=== PATIENT | female | born 1985 | race Hispanic/Latino ===

== ENCOUNTER 2018-08-20 22:20 | Emergency (ER) | payer SELFPAY ==
[2018-08-21] MEDS ORDERED: IPRATROPIUM BROM 0.5MG/2.5ML ONE (00:20)
[2018-08-21] MEDS ORDERED: ALBUTEROL 2.5 MG/3 ML NEB SOL ONE (00:20)
--- NOTE | 2018-08-21 01:25 | EDPHYS ---
Physician Documentation [facility] Name: Jayne Rivera Age: 33 yrs Sex: Female : 1985 Arrival Date: 08/20/2018 Time: 22:24 Bed 26 Private MD: ED Physician Choco Piedra HPI: 08/21 01:27 This 33 yrs old Female presents to ER via Ambulatory with complaints of tw4 Breathing Difficulty, Sore Throat, Chest Pain, Asthma Exacerbation. 01:27 The patient has shortness of breath at rest. Onset: The symptoms/episode began/occurred tw4 today. Duration: The symptoms are continuous, and are steadily getting worse. The patient's shortness of breath has no apparent modifying factors. Associated signs and symptoms: The patient has no apparent associated signs or symptoms. Severity of symptoms: At their worst the symptoms were moderate. The patient has not experienced similar symptoms in the past. 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 - Social history:: Smoking status: Patient/guardian denies using tobacco. - Ebola Screening: : Patient negative for fever greater than or equal to 101.5 degrees Fahrenheit, and additional compatible Ebola Virus Disease symptoms Patient denies exposure to infectious person Patient denies travel to an Ebola-affected area in the 21 days before illness onset. ROS: 08/21 01:27 Constitutional: Negative for fever, chills, and weight loss, Eyes: Negative for injury, tw4 pain, redness, and discharge. Cardiovascular: Negative for chest pain, palpitations, and edema. Abdomen/GI: Negative for abdominal pain, nausea, vomiting, diarrhea, and constipation, Back: Negative for injury and pain, MS/Extremity: Negative for injury and deformity, Skin: Negative for injury, rash, and discoloration, Neuro: Negative for headache, weakness, numbness, tingling, and seizure. ENT: Positive for sore throat. Respiratory: Positive for shortness of breath. Exam: 01:27 Constitutional: This is a well developed, well nourished patient who is awake, alert, tw4 and in no acute distress. Head/Face: Normocephalic, atraumatic. Chest/axilla: Normal chest wall appearance and motion. Nontender with no deformity. No lesions are appreciated. Cardiovascular: Regular rate and rhythm with a normal S1 and S2. No gallops, murmurs, or rubs. Normal PMI, no JVD. No pulse deficits. Respiratory: Lungs have equal breath sounds bilaterally, clear to auscultation and percussion. No rales, rhonchi or wheezes noted. No increased work of breathing, no retractions or nasal flaring. Abdomen/GI: Soft, non-tender, with normal bowel sounds. No distension or tympany. No guarding or rebound. No evidence of tenderness throughout. Back: No spinal tenderness. No costovertebral tenderness. Full range of motion. MS/ Extremity: Pulses equal, no cyanosis. Neurovascular intact. Full, normal range of motion. Neuro: Awake and alert, GCS 15, oriented to person, place, time, and situation. Cranial nerves II-XII grossly intact. Motor strength 5/5 in all extremities. Sensory grossly intact. Cerebellar exam normal. Normal gait. Vital Signs: 08/20 22:41 BP 104 / 60; Pulse 90; Resp 19; Temp 99.2(O); Pulse Ox 96% ; lt1 23:30 BP 116 / 57 LA; Pulse 96; Resp 14 S; Pulse Ox 96% on R/A; rv 08/21 00:00 BP 104 / 75 LA; Pulse 92; Resp 21 S; Pulse Ox 96% on R/A; rv 00:30 BP 111 / 77 LA; Pulse 92; Resp 16 S; Pulse Ox 99% on Nebulizer Mask; rv 01:00 BP 118 / 68 LA; Pulse 108; Resp 25 S; Pulse Ox 98% on R/A; rv MDM: 08/20 22:30 Patient medically screened. tw4 08/21 01:34 Differential diagnosis: Anemia Anxiety Reaction reactive airway disease, Sepsis. tw4 Antibiotic administration: Not indicated. Data reviewed: vital signs, nurses notes. Data interpreted: Pulse oximetry: Interpretation:. Counseling: I had a detailed discussion with the patient and/or guardian regarding: the historical points, exam findings, and any diagnostic results supporting the discharge/admit diagnosis. Special discussion: I discussed with the patient/guardian in detail that at this point there is no indication for admission to the hospital. It is understood, however, that if the symptoms persist or worsen the patient needs to return immediately for re-evaluation. 08/21 00:05 Order name: Flu; Complete Time: 00:59 tw4 08/20 23:04 Order name: Chest Single View XRAY tw4 Administered Medications: 00:16 Drug: DuoNeb (3:1) (2.5 mg - 0.5 mg) 3 ml Route: Nebulizer; rv 00:46 Follow up: Response: Wheezing diminished rv Disposition: 08/21/18 01:25 Discharged to Home. Impression: Bronchitis, not specified as acute or chronic. - Condition is Stable. - Discharge Instructions: Acute Bronchitis, Adult, Upper Respiratory Infection, Adult. - Prescriptions for Tessalon Perles 100 mg Oral Capsule - take 1 capsule by ORAL route every 8 hours As needed; 15 capsule. Albuterol Sulfate 90 mcg/actuation - inhale 1-2 puff by INHALATION route every 4-6 hours; 1 Inhaler. Guaifenesin AC 10- 100 mg/5 mL Oral Liquid - take 10 milliliter by ORAL route every 4 hours As needed; 240 milliliter. - Medication Reconciliation Form, Thank You Letter, Antibiotic Education, Prescription Opioid Use form. - Follow up: Private Physician; When: Upon discharge from the Emergency Department; Reason: If symptoms return, Recheck today's complaints, Continuance of care. - Problem is new. - Symptoms have improved. Signatures: Dispatcher [employer] [facility] Choco Piedra MD MD tw4 Dwayne Cortés RN RN rv Corrections: (The following items were deleted from the chart) 01:35 01:25 08/21/2018 01:25 Discharged to Home. Impression: Bronchitis, not specified as rv acute or chronic. Condition is Stable. Forms are Medication Reconciliation Form, Thank You Letter, Antibiotic Education, Prescription Opioid Use. Follow up: Private Physician; When: Upon discharge from the Emergency Department; Reason: If symptoms return, Recheck today's complaints, Continuance of care. Problem is new. Symptoms have improved. tw4
--- NOTE | 2018-08-21 01:25 | ER ---
Nurse's Notes [facility] Name: Jayne Rivera Age: 33 yrs Sex: Female : 1985 Arrival Date: 08/20/2018 Time: 22:24 Bed 26 Private MD: Diagnosis: Bronchitis, not specified as acute or chronic Presentation: 08/20 22:48 Presenting complaint: Patient states: I FELT IN THE MORNING LIKE I AM COLD AND THEN AT rv THE AFTERNOON I JUST FELT CHEST PAIN AND BREATHING PROBLEMS. I FEEL A LITTLE BIT DIZZY AND SOME HEADACHE TOO. Transition of care: patient was not received from another setting of care. Onset of symptoms was August 20, 2018 at 08:00. Risk Assessment: Do you want to hurt yourself or someone else? Patient reports no desire to harm self or others. Initial Sepsis Screen: Does the patient meet any 2 criteria? No. Patient's initial sepsis screen is negative. Does the patient have a suspected source of infection? No. Patient's initial sepsis screen is negative. Care prior to arrival: None. 22:48 Method Of Arrival: Ambulatory rv 22:48 Acuity: VIJAY 3 rv Triage Assessment: 22:50 General: Appears in no apparent distress. uncomfortable, Behavior is calm, cooperative. rv Pain: Complains of pain in chest. EENT: No signs and/or symptoms were reported regarding the EENT system. Neuro: Level of Consciousness is awake, alert, obeys commands, Oriented to person, place, time, situation. Cardiovascular: Capillary refill < 3 seconds. Respiratory: Reports shortness of breath Onset: The symptoms/episode began/occurred this morning, the patient has mild shortness of breath. GI: No signs and/or symptoms were reported involving the gastrointestinal system. : No signs and/or symptoms were reported regarding the genitourinary system. Derm: Skin is intact. Musculoskeletal: No signs and/or symptoms reported regarding the musculoskeletal system. 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 - Social history:: Smoking status: Patient/guardian denies using tobacco. - Ebola Screening: : Patient negative for fever greater than or equal to 101.5 degrees Fahrenheit, and additional compatible Ebola Virus Disease symptoms Patient denies exposure to infectious person Patient denies travel to an Ebola-affected area in the 21 days before illness onset. Screenin:52 Abuse screen: Denies threats or abuse. Denies injuries from another. Nutritional rv screening: No deficits noted. Tuberculosis screening: No symptoms or risk factors identified. Fall Risk None identified. Assessment: 22:53 Cardiovascular: Rhythm is regular. Respiratory: Airway is patent Respiratory effort is rv even, Breath sounds are clear bilaterally. 08/21 00:20 Reassessment: Patient appears in no apparent distress at this time. Patient and/or rv family updated on plan of care and expected duration. Pain level reassessed. Patient is alert, oriented x 3, equal unlabored respirations, skin warm/dry/pink. Vital Signs: 08/20 22:41 BP 104 / 60; Pulse 90; Resp 19; Temp 99.2(O); Pulse Ox 96% ; lt1 23:30 BP 116 / 57 LA; Pulse 96; Resp 14 S; Pulse Ox 96% on R/A; rv 04 00:00 BP 104 / 75 LA; Pulse 92; Resp 21 S; Pulse Ox 96% on R/A; rv 00:30 BP 111 / 77 LA; Pulse 92; Resp 16 S; Pulse Ox 99% on Nebulizer Mask; rv 01:00 BP 118 / 68 LA; Pulse 108; Resp 25 S; Pulse Ox 98% on R/A; rv ED Course: 08/20 22:24 Patient arrived in ED. es 22:30 Choco Piedra MD is Attending Physician. tw4 22:49 Triage completed. rv 22:54 Patient has correct armband on for positive identification. Placed in gown. Bed in low rv position. Call light in reach. Side rails up X 1. monitor and storage bin tender on. Pulse ox on. NIBP on. 22:54 Patient placed in an exam room, on a stretcher, on monitor and storage bin tender, on pulse oximetry, rv Patient notified of wait time. 23:29 X-ray completed. Portable x-ray completed in exam room. Patient tolerated procedure az well. 23:38 Chest Single View XRAY In Process Unspecified. EDMS 08/21 00:16 Flu Sent. rv 01:34 No provider procedures requiring assistance completed. Patient did not have IV access rv during this emergency room visit. Administered Medications: 00:16 Drug: DuoNeb (3:1) (2.5 mg - 0.5 mg) 3 ml Route: Nebulizer; rv 00:46 Follow up: Response: Wheezing diminished rv Outcome: 01:25 Discharge ordered by MD. mills 01:35 Discharged to home ambulatory. rv 01:35 Condition: good 01:35 Discharge instructions given to patient, Instructed on discharge instructions, follow up and referral plans. medication usage, Demonstrated understanding of instructions, follow-up care, medications, Prescriptions given X 3. 01:35 Patient left the ED. rv Signatures: Dispatcher [employer] [facility] Tracey Johnson Terrence, MD MD tw4 Dwayne Cortés RN RN rv Tae, Malena Ozuna lt1
--- NOTE | 2018-08-21 08:19 | RAD REPORT ---
EXAM DESCRIPTION: RAD - Chest Single View - 08/20/2018 11:37 pm CLINICAL HISTORY: DYSPNEA Chest pain. COMPARISON: No comparisons FINDINGS: Portable technique limits examination quality. The lungs are grossly clear. The heart is normal in size. No displaced fractures. IMPRESSION: No acute intrathoracic process suspected.
== END 2018-08-21 01:35 | disposition home or self-care (01) ==
LOC: ER 22:20
DX: J40 Bronchitis, not specified as acute or chronic (principal); J45.909 Unspecified asthma, uncomplicated; E11.9 Type 2 diabetes mellitus without complications; Z88.0 Allergy status to penicillin
CPT/HCPCS: 71045; 87804; 93005; 94640; 99285

== ENCOUNTER 2019-11-13 07:33 | Emergency (ER) | payer SELFPAY ==
[2019-11-13 08:52] LABS: Urine Blood NEGATIVE (NEG); Urine Glucose 3+ (NEG); Urine Protein NEGATIVE (NEG); Urine Specific Gravity 1.025 (1.005-1.030)
[2019-11-13] MEDS ORDERED: MORPHINE 4 MG/ML SYR ONE (08:53)
--- NOTE | 2019-11-13 09:12 | RAD REPORT ---
EXAM DESCRIPTION: CT - Spine Lumbar Wo Con - 11/13/2019 8:59 am CLINICAL HISTORY: Radiculopathy. LOWER BACK PAIN COMPARISON: No comparisons TECHNIQUE: Axial noncontrast CT imaging of the lumbar spine was performed with coronal and sagittal re-formatted images. All CT scans are performed using dose optimization technique as appropriate and may include automated exposure control or mA/KV adjustment according to patient size. FINDINGS: No acute lumbar spine fracture seen. No aggressive marrow pattern or malalignment. Paraspinal tissues are normal in thickness. No paraspinal abscess or hematoma seen. Evidence of posterior disc bulge is present lower lumbar spine. Severe canal stenosis is not seen. Fa cet hypertrophy is also present bilaterally in the lower lumbar levels. IMPRESSION: No acute lumbar spine abnormality. Moderate lower lumbar spondylosis is present.
--- NOTE | 2019-11-13 09:58 | ER ---
Nurse's Notes [facility] Name: Jayne Rivera Age: 34 yrs Sex: Female : 1985 Arrival Date: 11/13/2019 Time: 07:36 Bed 8 Private MD: Diagnosis: Low back pain Presentation: 11/12 07:58 Chief complaint: Patient states: low back pain that began this morning while getting ss dressed. Coronavirus screen: Proceed with normal triage. Patient denies a cough. Patient denies shortness of breath or difficulty breathing. Patient denies measured and/or subjective temperature greater than 100.4F prior to today's visit. Patient denies travel on a cruise ship or to a country the [facility] currently lists as an affected area. Patient denies contact with known and/or suspected case of COVID-19. Ebola Screen: Patient denies exposure to infectious person. Patient denies travel to an Ebola-affected area in the 21 days before illness onset. Initial Sepsis Screen: Does the patient meet any 2 criteria? Does the patient have a suspected source of infection? No. Patient's initial sepsis screen is negative. Risk Assessment: Do you want to hurt yourself or someone else? Patient reports no desire to harm self or others. Onset of symptoms was November 13, 2019. 07:58 Method Of Arrival: Wheelchair ss 07:58 Acuity: VIJAY 3 ss Historical: - Allergies: 08:02 PENICILLINS; ss - PMHx: 08:02 Asthma; Diabetes - NIDDM; ss - PSHx: 08:02 Tonsillectomy; ss - Immunization history:: Adult Immunizations up to date. - Social history:: Smoking status: Patient denies any tobacco usage or history of. Screenin:02 Abuse screen: Denies threats or abuse. Denies injuries from another. Nutritional sv screening: No deficits noted. Tuberculosis screening: No symptoms or risk factors identified. Fall Risk None identified. Assessment: 08:45 Reassessment: Pt stated that she couldn't ambulate to the bathroom to obtain a urine sv sample. Informed pt that we needed to get a urine . Pt informed that we could do a straight cath, pt stated ok. Got everything ready and got pt undressed and pt stated that she didn't want to do it anymore and started crying. Pt stated that she would get up and urinate in a cup for a sample. General: Appears in no apparent distress. uncomfortable, well developed, Behavior is cooperative, crying. Pain: Complains of pain in lumbar area Pain currently is 10 out of 10 on a pain scale. Is continuous. Neuro: Level of Consciousness is awake, alert, obeys commands, Oriented to person, place, time, situation, Moves all extremities. Full function. Respiratory: Respiratory effort is even, unlabored, Respiratory pattern is regular, symmetrical. Derm: Skin is intact, Skin is pink, warm \T\ dry. 09:35 Reassessment: Dr Benton at bedside speaking with pt. sv 09:44 Reassessment: Pt ambulatory in the hallway leaning on her family member. Dr Benton sv observed the pt ambulating. 10:12 Reassessment: Patient appears in no apparent distress at this time. No changes from sv previously documented assessment. Patient and/or family updated on plan of care and expected duration. Pain level reassessed. Patient is alert, oriented x 3, equal unlabored respirations, skin warm/dry/pink. Vital Signs: 07:58 BP 129 / 70; Pulse 54; Resp 18; Temp 98.1(TE); Pulse Ox 98% on R/A; Weight 113.4 kg; Height 5 ft. 7 in. (170.18 cm); Pain 10/10; 09:15 BP 107 / 43; Pulse 52; Resp 16; Pulse Ox 96% ; sv 07:58 Body Mass Index 39.16 (113.40 kg, 170.18 cm) ED Course: 07:36 Patient arrived in ED. mr 07:52 Wilder Benton MD is Attending Physician. [facility] 08:01 Triage completed. ss 08:02 Aarti Clements, STEPHEN is Primary Nurse. sv 08:02 Arm band placed on right wrist. ss 08:02 Patient has correct armband on for positive identification. Bed in low position. Call sv light in reach. Adult w/ patient. Pulse ox on. NIBP on. Door closed. Head of bed elevated. 08:05 ED physician to see patient. sv 08:59 CT Lumbar Spine Wo Con In Process Unspecified. EDMS 09:44 No provider procedures requiring assistance completed. Patient did not have IV access sv during this emergency room visit. Administered Medications: 08:50 Drug: morphine 4 mg {Note: rass3.} Route: IM; Site: right deltoid; sv 09:45 Follow up: Response: No adverse reaction; No change in condition; Pain is unchanged, physician notified; RASS: Agitated (+2) Outcome: 09:57 Discharge ordered by MD. hilario 10:12 Discharged to home via wheelchair, with crutches, with family. sv 10:12 Condition: stable 10:12 Discharge instructions given to patient, Instructed on discharge instructions, follow up and referral plans. no drinking with medication, no driving heavy equipment, medication usage, Demonstrated understanding of instructions, follow-up care, medications, Prescriptions given X 3. 10:13 Patient left the ED. Signatures: Dispatcher [employer] EDAarti Roberts RN RN sv Rivera, Mary mr Smirch, Shelby, RN RN ss Holmes, Maurice, MD MD 7 Corrections: (The following items were deleted from the chart) 08:05 08:03 Awaiting ED provider evaluation, [facility]
--- NOTE | 2019-11-13 09:58 | EDPHYS ---
Physician Documentation [facility] Name: Jayne Rivera Age: 34 yrs Sex: Female : 1985 Arrival Date: 11/13/2019 Time: 07:36 Bed 8 Private MD: ED Physician Wilder Benton HPI: 11/12 08:07 This 34 yrs old Female presents to ER via Wheelchair with complaints of Back mh7 Pain. 08:07 The patient presents with pain that is acute. The symptoms are located in the low back. mh7 Onset: The symptoms/episode began/occurred this morning. The pain does not radiate. Associated signs and symptoms: Pertinent negatives: abdominal pain, chest pain, constipation, dysuria, fever, headache, hematuria, incontinence, nausea, numbness, tingling, urinary retention, vomiting, weakness. The problem was sustained when bending over, from twisting. Modifying factors: The patient symptoms are alleviated by remaining still, the patient symptoms are aggravated by movement, standing, walking. Severity of symptoms: At their worst the symptoms were moderate, this morning, in the emergency department the symptoms are unchanged. The patient has experienced similar episodes in the past, a few times. Historical: - Allergies: 08:02 PENICILLINS; ss - PMHx: 08:02 Asthma; Diabetes - NIDDM; ss - PSHx: 08:02 Tonsillectomy; ss - Immunization history:: Adult Immunizations up to date. - Social history:: Smoking status: Patient denies any tobacco usage or history of. ROS: 08:07 Constitutional: Negative for fever, chills, and weight loss, Eyes: Negative for injury, mh7 pain, redness, and discharge, ENT: Negative for injury, pain, and discharge, Neck: Negative for injury, pain, and swelling, Cardiovascular: Negative for chest pain, palpitations, and edema, Respiratory: Negative for shortness of breath, cough, wheezing, and pleuritic chest pain, Abdomen/GI: Negative for abdominal pain, nausea, vomiting, diarrhea, and constipation, : Negative for injury, bleeding, discharge, and swelling, MS/Extremity: Negative for injury and deformity, Skin: Negative for injury, rash, and discoloration, Neuro: Negative for headache, weakness, numbness, tingling, and seizure, Psych: Negative for depression, anxiety, suicide ideation, homicidal ideation, and hallucinations, Allergy/Immunology: Negative for hives, rash, and allergies, Endocrine: Negative for neck swelling, polydipsia, polyuria, polyphagia, and marked weight changes, Hematologic/Lymphatic: Negative for swollen nodes, abnormal bleeding, and unusual bruising. Exam: 08:07 Constitutional: This is a well developed, well nourished patient who is awake, alert, mh7 and in no acute distress. Head/Face: Normocephalic, atraumatic. Eyes: Pupils equal round and reactive to light, extra-ocular motions intact. Lids and lashes normal. Conjunctiva and sclera are non-icteric and not injected. Cornea within normal limits. Periorbital areas with no swelling, redness, or edema. Neck: Trachea midline, no thyromegaly or masses palpated, and no cervical lymphadenopathy. Supple, full range of motion without nuchal rigidity, or vertebral point tenderness. No Meningismus. Chest/axilla: Normal chest wall appearance and motion. Nontender with no deformity. No lesions are appreciated. Cardiovascular: Regular rate and rhythm with a normal S1 and S2. No gallops, murmurs, or rubs. Normal PMI, no JVD. No pulse deficits. Respiratory: Lungs have equal breath sounds bilaterally, clear to auscultation and percussion. No rales, rhonchi or wheezes noted. No increased work of breathing, no retractions or nasal flaring. Abdomen/GI: Soft, non-tender, with normal bowel sounds. No distension or tympany. No guarding or rebound. No evidence of tenderness throughout. 08:07 Skin: Warm, dry with normal turgor. Normal color with no rashes, no lesions, and no evidence of cellulitis. MS/ Extremity: Pulses equal, no cyanosis. Neurovascular intact. Full, normal range of motion. Neuro: Awake and alert, GCS 15, oriented to person, place, time, and situation. Cranial nerves II-XII grossly intact. Motor strength 5/5 in all extremities. Sensory grossly intact. Cerebellar exam normal. Normal gait. Psych: Awake, alert, with orientation to person, place and time. Behavior, mood, and affect are within normal limits. 08:07 Back: pain, that is moderate, of the lumbar area, ROM is painful, with all movement, normal spinal alignment noted, CVA tenderness, is absent, muscle spasm, is appreciated in the lumbar area, Straight leg raises: of both lower extremities does not illicit pain. Vital Signs: 07:58 BP 129 / 70; Pulse 54; Resp 18; Temp 98.1(TE); Pulse Ox 98% on R/A; Weight 113.4 kg; ss Height 5 ft. 7 in. (170.18 cm); Pain 10/10; 09:15 BP 107 / 43; Pulse 52; Resp 16; Pulse Ox 96% ; sv 07:58 Body Mass Index 39.16 (113.40 kg, 170.18 cm) ss MDM: 08:05 Patient medically screened. 7 09:55 Differential diagnosis: arthritis, chronic back pain, Fracture Ligament Injury Obesity 7 ruptured disc, sprain, vertebral fracture. Data reviewed: vital signs, nurses notes, lab test result(s), urinalysis, radiologic studies, CT scan. Data interpreted: Pulse oximetry: on room air is 96 %. Interpretation: normal. Counseling: I had a detailed discussion with the patient and/or guardian regarding: the historical points, exam findings, and any diagnostic results supporting the discharge/admit diagnosis, lab results, radiology results, the need for outpatient follow up, to return to the emergency department if symptoms worsen or persist or if there are any questions or concerns that arise at home. Response to treatment: the patient's symptoms have markedly improved after treatment. 11/12 08:38 Order name: Urine Dipstick--Ancillary (enter results); Complete Time: 09:02 11/12 08:38 Order name: Urine --Ancillary (enter results); Complete Time: 09:02 11/12 08:06 Order name: Urine Dipstick-Ancillary (obtain specimen); Complete Time: 08:50 [facility] 11/12 08:06 Order name: Urine Test (obtain specimen); Complete Time: 08:50 [facility] 11/12 08:06 Order name: CT Lumbar Spine Wo Con; Complete Time: 09:31 7 Administered Medications: 08:50 Drug: morphine 4 mg {Note: rass3.} Route: IM; Site: right deltoid; sv 09:45 Follow up: Response: No adverse reaction; No change in condition; Pain is unchanged, sv physician notified; RASS: Agitated (+2) Disposition: 11/13/19 09:57 Discharged to Home. Impression: Low back pain. - Condition is Stable. - Discharge Instructions: Back Injury Prevention, [id number], Back Pain, Adult, [id number]. - Prescriptions for Ibuprofen 800 mg Oral Tablet - take 1 tablet by ORAL route every 8 hours As needed take with food; 15 tablet. Robaxin 500 mg Oral Tablet - take 2 tablet by ORAL route every 6 hours As needed; 40 tablet. Tylenol- Codeine #3 300-30 mg Oral Tablet - take 2 tablets by ORAL route every 6 hours As needed; 20 tablet. - Work release form, Medication Reconciliation Form, Thank You Letter, Antibiotic Education, Prescription Opioid Use form. - Follow up: Private Physician; When: 1 - 2 days; Reason: Worsening of condition, Recheck today's complaints, Re-evaluation by your physician. - Problem is an acute exacerbation. - Symptoms have improved. Signatures: Dispatcher [employer] EDAarti Roberts RN RN sv Smirch, Shelby, RN RN ss Wilder Benton MD MD mh7 Corrections: (The following items were deleted from the chart) 10:13 09:57 11/13/2019 09:57 Discharged to Home. Impression: Low back pain. Condition is sv Stable. Forms are Medication Reconciliation Form, Thank You Letter, Antibiotic Education, Prescription Opioid Use. Follow up: Private Physician; When: 1 - 2 days; Reason: Worsening of condition, Recheck today's complaints, Re-evaluation by your physician. Problem is an acute exacerbation. Symptoms have improved. mh7
[2019-11-13 10:18] VITALS: TEMP 98.1
[2019-11-13 10:20] VITALS: BP 107/43; O2SAT 96
== END 2019-11-13 10:13 | disposition home or self-care (01) ==
LOC: ER 07:33
DX: M54.5 Low back pain (principal); Z88.0 Allergy status to penicillin
CPT/HCPCS: 72131; 81003; 81025; 96372; 99284

== ENCOUNTER 2019-11-16 13:15 | Emergency (ER) | payer SELFPAY ==
[2019-11-16 13:58] LABS: Urine Blood 2+ (NEG); Urine Glucose 2+ (NEG); Urine Protein NEGATIVE (NEG); Urine Specific Gravity 1.025 (1.005-1.030)
--- NOTE | 2019-11-16 14:00 | EDPHYS ---
Physician Documentation [facility] Name: Jayne Rivera Age: 34 yrs Sex: Female : 1985 Arrival Date: 11/16/2019 Time: 13:17 Bed 19 Private MD: ED Physician Austin Rivera HPI: 11/15 13:55 This 34 yrs old Female presents to ER via Wheelchair with complaints of Low rn Back Pain, Leg Pain. 13:55 The patient presents with pain that is acute. The symptoms are located in the low back. rn The pain radiates to the right leg. Onset: The symptoms/episode began/occurred last week. Modifying factors: The patient symptoms are alleviated by remaining still, the patient symptoms are aggravated by any movement, bending. Severity of symptoms: At their worst the symptoms were moderate, in the emergency department the symptoms are unchanged. The patient has not experienced similar symptoms in the past. The patient has been recently seen by a physician:. Seen here last week for back pain, began when putting pants on, worse with movement, improves when staying still, had neg ct lumbar spine, neg preg, no bowel/bladder issues, no focal neuro complaints. States pain medication is making her sleepy but not getting rid of pain. No fever or new symptoms. . INTERN BRAND: 13:25 LMP 10/20/2019 jl Historical: - Allergies: 13:25 PENICILLINS; 7 - Home Meds: 13:25 Metformin Oral [Active]; Levemir subcutaneous subcutaneous [Active]; - PMHx: 13:25 Asthma; Diabetes - NIDDM; - PSHx: 13:25 Tonsillectomy; jl7 - Immunization history:: Adult Immunizations not up to date. - Social history:: Smoking status: Patient denies any tobacco usage or history of. - Family history:: not pertinent. - Hospitalizations: : No recent hospitalization is reported. ROS: 13:55 Constitutional: Negative for fever, chills, and weight loss, Eyes: Negative for injury, rn pain, redness, and discharge, Neck: Negative for injury, pain, and swelling, Cardiovascular: Negative for chest pain, palpitations, and edema, Respiratory: Negative for shortness of breath, cough, wheezing, and pleuritic chest pain, Abdomen/GI: Negative for abdominal pain, nausea, vomiting, diarrhea, and constipation, Back: + low back pain : Negative for injury, bleeding, discharge, and swelling, MS/Extremity: Negative for injury and deformity, Skin: Negative for injury, rash, and discoloration, Neuro: Negative for headache, weakness, numbness, tingling, and seizure. Exam: 13:55 Constitutional: This is a well developed, well nourished patient who is awake, alert, rn and in no acute distress. Sitting in wheelchair Back: No spinal tenderness. Skin: Warm, dry MS/ Extremity: Pulses equal, no cyanosis. Neuro: Awake and alert, GCS 15, oriented to person, place, time, and situation. Cranial nerves II-XII grossly intact. Motor strength 5/5 in all extremities. Sensory grossly intact. Vital Signs: 13:21 BP 128 / 90; Pulse 79; Resp 17; Temp 97.8; Pulse Ox 97% ; Weight 113.4 kg; Height 5 ft. jl7 6 in. (167.64 cm); Pain 9/10; 14:09 BP 108 / 80; Pulse 76; Resp 15 S; Pulse Ox 98% on R/A; ca1 13:21 Body Mass Index 40.35 (113.40 kg, 167.64 cm) jl7 MDM: 13:27 Patient medically screened. rn 13:55 Differential diagnosis: strain. Data reviewed: vital signs, nurses notes, old medical rn records, lab test result(s), and as a result, I will discharge patient. Counseling: I had a detailed discussion with the patient and/or guardian regarding: the historical points, exam findings, and any diagnostic results supporting the discharge/admit diagnosis, lab results, the need for outpatient follow up, to return to the emergency department if symptoms worsen or persist or if there are any questions or concerns that arise at home. Special discussion: I discussed with the patient/guardian in detail that at this point there is no indication for admission to the hospital. It is understood, however, that if the symptoms persist or worsen the patient needs to return immediately for re-evaluation. ED course: Neg ct lumbar spine last week, UA today shows some blood, no urinary symptoms and patient states thinks is supposed to start her menstrual cycle. Pain consistent with muscular pain and not kidney stone. . 11/15 13:52 Order name: Urine Dipstick--Ancillary (enter results); Complete Time: 14:01 eb 11/15 13:52 Order name: Urine --Ancillary (enter results); Complete Time: 14:01 Administered Medications: 14:01 Drug: TORadol 30 mg Route: IM; Site: left deltoid; ca1 14:16 Follow up: Response: No adverse reaction; Pain is decreased ca1 14:03 Drug: Decadron 10 mg Route: IM; Site: right deltoid; ca1 14:16 Follow up: Response: No adverse reaction ca1 Disposition: 11/16/19 13:59 Discharged to Home. Impression: Strain of muscle, fascia and tendon of lower back, Radiculopathy, lumbosacral region. - Condition is Stable. - Discharge Instructions: Back Pain, Adult, Lumbosacral Radiculopathy, Muscle Strain. - Prescriptions for Medrol (Anup) 4 mg Oral Tablets, Dose Pack - take 1 tablet by ORAL route as directed - follow package instructions; 1 packet. orphenadrine citrate 100 mg Oral Tablet Sustained Release - take 1 tablet by ORAL route 2 times per day As needed; 20 tablet. - Medication Reconciliation Form, Thank You Letter, Antibiotic Education, Prescription Opioid Use, Work release form form. - Follow up: Private Physician; When: As needed; Reason: Recheck today's complaints, Re-evaluation by your physician. - Problem is an ongoing problem. - Symptoms have improved. Signatures: Dispatcher [employer] EDMS Austin Rivera MD MD rn Leal, Jahala, RN RN jl7 Yesenia Samuels RN RN ca1 Corrections: (The following items were deleted from the chart) 14:17 13:59 11/16/2019 13:59 Discharged to Home. Impression: Strain of muscle, fascia and ca1 tendon of lower back; Radiculopathy, lumbosacral region. Condition is Stable. Forms are Medication Reconciliation Form, Thank You Letter, Antibiotic Education, Prescription Opioid Use. Follow up: Private Physician; When: As needed; Reason: Recheck today's complaints, Re-evaluation by your physician. Problem is an ongoing problem. Symptoms have improved. rn
--- NOTE | 2019-11-16 14:00 | ER ---
Nurse's Notes [facility] Name: Jayne Rivera Age: 34 yrs Sex: Female : 1985 Arrival Date: 11/16/2019 Time: 13:17 Bed 19 Private MD: Diagnosis: Strain of muscle, fascia and tendon of lower back;Radiculopathy, lumbosacral region Presentation: 11/15 13:21 Chief complaint: Patient states: Low back pain x 4 days, came to ER and was prescribed jl7 pain medicine but it just makes me sleep, does not take away the pain, "I can't even go to the bathroom by myself." Denies trauma. Coronavirus screen: Proceed with normal triage. Patient denies a cough. Patient denies shortness of breath or difficulty breathing. Patient denies measured and/or subjective temperature greater than 100.4F prior to today's visit. Patient denies travel on a cruise ship or to a country the [facility] currently lists as an affected area. Patient denies contact with known and/or suspected case of COVID-19. Ebola Screen: No symptoms or risks identified at this time. Initial Sepsis Screen: Does the patient meet any 2 criteria? No. Patient's initial sepsis screen is negative. Does the patient have a suspected source of infection? No. Patient's initial sepsis screen is negative. Risk Assessment: Do you want to hurt yourself or someone else? Patient reports no desire to harm self or others. Onset of symptoms was November 13, 2019. Care prior to arrival: None. 13:21 Method Of Arrival: Wheelchair jl 13:21 Acuity: VIJAY 4 jl7 Triage Assessment: 13:25 General: Appears in no apparent distress. uncomfortable, Behavior is calm, cooperative. jl7 Pain: Complains of pain in right low back Pain does not radiate. Pain currently is 9 out of 10 on a pain scale. Pain began 2-3 days ago. Is continuous. Neuro: Level of Consciousness is awake, alert, obeys commands, Oriented to person, place, time, situation. Cardiovascular: Patient's skin is warm and dry. Respiratory: Airway is patent Respiratory effort is even, unlabored, Respiratory pattern is regular, symmetrical. Derm: Skin is pink, warm \\T\\ dry. CHART COMPUTER: 13:25 LMP 10/20/2019 jl7 Historical: - Allergies: 13:25 PENICILLINS; jl7 - Home Meds: 13:25 Metformin Oral [Active]; Levemir subcutaneous subcutaneous [Active]; jl7 - PMHx: 13:25 Asthma; Diabetes - NIDDM; jl7 - PSHx: 13:25 Tonsillectomy; jl7 - Immunization history:: Adult Immunizations not up to date. - Social history:: Smoking status: Patient denies any tobacco usage or history of. - Family history:: not pertinent. - Hospitalizations: : No recent hospitalization is reported. Screenin:30 Abuse screen: Denies threats or abuse. Denies injuries from another. Nutritional ca1 screening: No deficits noted. Tuberculosis screening: No symptoms or risk factors identified. Fall Risk Gait- Impaired (20 pts.). Total Uriostegui Fall Scale indicates No Risk (0-24 pts). Assessment: 13:30 General: Appears in no apparent distress. comfortable, Behavior is calm, cooperative, ca1 appropriate for age. Pain: Complains of pain in back and right low back Pain radiates to right leg Pain currently is 8 out of 10 on a pain scale. Aggravated by repositioning, weight bearing. Neuro: Level of Consciousness is awake, alert, obeys commands, Oriented to person, place, time, situation, Appropriate for age. Derm: Skin is intact, is healthy with good turgor, Skin is pink, warm \\T\\ dry. Musculoskeletal: Circulation, motion, and sensation intact. Capillary refill < 3 seconds. 14:09 Reassessment: Patient appears in no apparent distress at this time. Patient is alert, ca1 oriented x 3, equal unlabored respirations, skin warm/dry/pink. Vital Signs: 13:21 BP 128 / 90; Pulse 79; Resp 17; Temp 97.8; Pulse Ox 97% ; Weight 113.4 kg; Height 5 ft. jl7 6 in. (167.64 cm); Pain 9/10; 14:09 BP 108 / 80; Pulse 76; Resp 15 S; Pulse Ox 98% on R/A; ca1 13:21 Body Mass Index 40.35 (113.40 kg, 167.64 cm) jl7 ED Course: 13:17 Patient arrived in ED. as 13:24 Triage completed. jl7 13:25 Arm band placed on right wrist. jl7 13:27 Acob, Yesenia, RN is Primary Nurse. ca1 13:27 Austin Rivera MD is Attending Physician. rn 13:30 Patient has correct armband on for positive identification. Bed in low position. Call ca1 light in reach. Side rails up X 1. Pulse ox on. NIBP on. 14:17 No provider procedures requiring assistance completed. Patient did not have IV access ca1 during this emergency room visit. Administered Medications: 14:01 Drug: TORadol 30 mg Route: IM; Site: left deltoid; ca1 14:16 Follow up: Response: No adverse reaction; Pain is decreased ca1 14:03 Drug: Decadron 10 mg Route: IM; Site: right deltoid; ca1 14:16 Follow up: Response: No adverse reaction ca1 Outcome: 13:59 Discharge ordered by . rn 14:17 Discharged to home via wheelchair, with significant other. ca1 14:17 Condition: stable 14:17 Discharge instructions given to patient, Instructed on discharge instructions, follow up and referral plans. medication usage, Demonstrated understanding of instructions, follow-up care, medications, Prescriptions given X 2. 14:17 Patient left the ED. ca1 Signatures: Vira Mcallister as Austin Rivera MD MD rn Leal, Jahala, RN RN jl7 Yesenia Samuels RN RN ca1
[2019-11-16] MEDS ORDERED: KETOROLAC 30 MG/ML INJ ONE (14:10)
[2019-11-16] MEDS ORDERED: dexAMETHasone 10 MG/ML VIAL ONE (14:10)
[2019-11-16 14:22] VITALS: TEMP 97.8
[2019-11-16 14:23] VITALS: BP 108/80; O2SAT 98
== END 2019-11-16 14:17 | disposition home or self-care (01) ==
LOC: ER 13:15
DX: S39.012A Strain of muscle, fascia and tendon of lower back, initial encounter (principal); M54.17 Radiculopathy, lumbosacral region; E11.9 Type 2 diabetes mellitus without complications; Z79.4 Long term (current) use of insulin; Z88.0 Allergy status to penicillin
CPT/HCPCS: 81003; 81025; 96372; 99283; J1100

== ENCOUNTER 2020-03-23 16:21 | Emergency (ER) | payer SELFPAY ==
[2020-03-23 17:48] LABS: Absolute Lymphocytes (CBC) 2.2 K/uL (0.7-4.9); Basophils % 0.5 % (0-1.3); Hematocrit 42.5 % (36.0-45.0); Lymphocytes % 30.7 % (15.3-44.8); MPV 8.8 fL (7.6-11.3); RBC Red Blood Cell Count 4.82 M/uL (3.86-4.86)
[2020-03-23 17:57] LABS: BUN Blood Urea Nitrogen 12 mg/dL (7-18); Bicarbonate 28 mmol/L (21-32); Potassium 4.3 mmol/L (3.5-5.1); Sodium Level 138 mmol/L (136-145)
[2020-03-23 17:58] LABS: Glucose Level 411 mg/dL (74-106)
[2020-03-23] MEDS ORDERED: NA CHLORIDE 0.9% 1,000 ML ONE (18:19)
[2020-03-23] MEDS ORDERED: INSULIN -REGULAR HUMAN 50 UNIT/0.5 ML ML ONE (18:21)
--- NOTE | 2020-03-23 19:34 | ER ---
Nurse's Notes [facility] Name: Jayne Rivera Age: 34 yrs Sex: Female : 1985 Arrival Date: 03/23/2020 Time: 16:23 Bed 20 Private MD: Diagnosis: Hyperglycemia, unspecified Presentation: 03/23 16:49 Chief complaint: Patient states: Hasn't had insulin in 4 days. Dizziness started today, ll1 she checked her sugar at work 509. Fingerstick 453 in triage. No N/V. Coronavirus screen: Client denies travel out of the [place] in the last 14 days. At this time, the client does not indicate any symptoms associated with coronavirus-19. Ebola Screen: Patient denies travel to an Ebola-affected area in the 21 days before illness onset. Initial Sepsis Screen: Does the patient meet any 2 criteria? No. Patient's initial sepsis screen is negative. Does the patient have a suspected source of infection? No. Patient's initial sepsis screen is negative. Risk Assessment: Do you want to hurt yourself or someone else? Patient reports no desire to harm self or others. Onset of symptoms was March 23, 2020. 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 - Social history:: Smoking status: Patient denies any tobacco usage or history of. Screenin:22 Abuse screen: Denies threats or abuse. Denies injuries from another. Nutritional ph screening: No deficits noted. Tuberculosis screening: No symptoms or risk factors identified. Fall Risk None identified. Assessment: 18:19 General: Appears in no apparent distress. comfortable, Behavior is calm, cooperative, ph appropriate for age, Denies fever, feeling ill. Pain: Denies pain. Neuro: Level of Consciousness is awake, alert, obeys commands, Oriented to person, place, time, situation, Reports dizziness. Cardiovascular: Capillary refill < 3 seconds in bilateral fingers Patient's skin is warm and dry. Respiratory: Airway is patent Respiratory effort is even, unlabored, Respiratory pattern is regular, symmetrical. GI: Patient currently denies abdominal pain, nausea, vomiting. Derm: Skin is intact, is healthy with good turgor, Skin is pink, warm \T\ dry. Musculoskeletal: Circulation, motion, and sensation intact. Range of motion: intact in all extremities. 18:58 Reassessment: Patient appears in no apparent distress at this time. Patient and/or ph family updated on plan of care and expected duration. Pain level reassessed. Patient is alert, oriented x 3, equal unlabored respirations, skin warm/dry/pink. Pt c/o leg cramps. 19:15 Reassessment: Patient appears in no apparent distress at this time. Patient and/or wh family updated on plan of care and expected duration. Pain level reassessed. Patient is alert, oriented x 3, equal unlabored respirations, skin warm/dry/pink. 19:30 Reassessment: Provider at bedside explaining POC. Vital Signs: 16:49 Resp 17; Height 5 ft. 8 in. (172.72 cm); Pain 0/10; ll1 16:54 BP 129 / 74; Pulse 84; Temp 98.3; Pulse Ox 100% ; ll1 18:31 BP 99 / 67; Pulse 67; Resp 16; Pulse Ox 99% on R/A; ph 19:30 BP 117 / 71; Pulse 72; Resp 18; Pulse Ox 99% on R/A; ED Course: 16:23 Patient arrived in ED. as 16:28 Love Armenta FNP-C [facility]. kb 16:28 Austin Rivera MD is Attending Physician. kb 16:51 Triage completed. ll1 16:52 Arm band placed on. ll1 16:53 Notified Charge Nurse of Blood sugar elevated. ll1 17:34 Bed in low position. Call light in reach. Warm blanket given. Verbal reassurance given. jp3 Pulse ox on. NIBP on. 17:34 Initial lab(s) drawn, by me, sent to lab. Inserted saline lock: 20 gauge in right jp3 antecubital area, using aseptic technique. Blood collected. Patient maintains SpO2 saturation greater than 95% on room air. 18:02 Shonda Lorenzo RN is Primary Nurse. zb 18:02 Breen, Delisa, RN is Primary Nurse. zb 19:30 Urine collected: clean catch specimen, clear, lorena colored. jp3 19:37 Primary Nurse role handed off by Delisa Breen RN mw2 19:40 Removal of peripheral IV. Catheter intact, dressing applied. jp3 19:44 Lety Singh is Primary Nurse. 19:46 No provider procedures requiring assistance completed. IV discontinued, intact, bleeding controlled, No redness/swelling at site. Administered Medications: 18:16 Drug: NS 0.9% 1000 ml Route: IV; Rate: 1000 ml; Site: right antecubital; ph 19:24 Follow up: Response: No adverse reaction; IV Status: Completed infusion; IV Intake: ph 1000ml 19:49 Follow up: Response: No adverse reaction; IV Status: Completed infusion 18:17 Drug: Insulin Regular Human 10 units {Co-Signature: ronni (Shonda Lorenzo RN).} Route: ph IVP; Site: right antecubital; 19:24 Follow up: Response: No adverse reaction; Blood sugar is lowered ph 19:48 Follow up: Response: No adverse reaction; Blood sugar is lowered Point of Care Testing: Blood Glucose: 19:19 Blood Glucose: 166 mg/dL; Urine : 19:35 hCG Reading: Negative; Control Reading: Positive; jp3 Ranges: Intake: 19:24 IV: 1000ml; Total: 1000ml. ph Outcome: 19:33 Discharge ordered by MD. kb 19:47 Discharged to home ambulatory, with family. 19:47 Condition: stable 19:47 Discharge instructions given to patient, Instructed on discharge instructions, follow up and referral plans. POC Demonstrated understanding of instructions, follow-up care, POC 19:49 Patient left the ED. Signatures: Love Armenta FNP-C FNP-Vira Farmer as Delisa Breen RN RN Lety Singh Estrella Dick mw2 Saqib Malik jp3 Mukesh See RN RN ll1 Shonda Lorenzo RN RN zb Shonda rudolph Corrections: (The following items were deleted from the chart) 16:56 16:49 Acuity: VIJAY 3 ll1 ph
--- NOTE | 2020-03-23 19:34 | EDPHYS ---
Physician Documentation [facility] Name: Jayne Rivera Age: 34 yrs Sex: Female : 1985 Arrival Date: 03/23/2020 Time: 16:23 Bed 20 Private MD: ED Physician Austin Rivera HPI: 03/23 19:36 This 34 yrs old Female presents to ER via Ambulatory with complaints of High kb Blood Sugar - 509, Dizziness. 19:36 The patient or guardian reports hyperglycemia, that was potentially precipitated by no kb particular event, with the patient's symptoms witnessed by no one. Onset: The symptoms/episode began/occurred today. Associated signs and symptoms: Pertinent positives: dizziness. Current symptoms: In the emergency department the patient's symptoms are unchanged from the initial presentation. The patient has not experienced similar symptoms in the past. The patient has not recently seen a physician. Pt reports she felt some dizziness so she checked her sugar and it was over 500. States she hasn't been checking it lately so she doesn't know how long it's been high. 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 - Social history:: Smoking status: Patient denies any tobacco usage or history of. ROS: 19:36 Constitutional: Negative for fever, chills, and weight loss, Cardiovascular: Negative kb for chest pain, palpitations, and edema, Respiratory: Negative for shortness of breath, cough, wheezing, and pleuritic chest pain, Abdomen/GI: Negative for abdominal pain, nausea, vomiting, diarrhea, and constipation, Back: Negative for injury and pain, MS/Extremity: Negative for injury and deformity, Skin: Negative for injury, rash, and discoloration. 19:36 Neuro: Positive for dizziness, Negative for altered mental status, gait disturbance, headache, hearing loss, loss of consciousness, numbness, seizure activity, speech changes, syncope, near syncope, tingling, tinnitus, tremor, visual changes, weakness. Exam: 19:36 Constitutional: This is a well developed, well nourished patient who is awake, alert, kb and in no acute distress. Head/Face: Normocephalic, atraumatic. Chest/axilla: Normal chest wall appearance and motion. Nontender with no deformity. No lesions are appreciated. Cardiovascular: Regular rate and rhythm with a normal S1 and S2. No gallops, murmurs, or rubs. Normal PMI, no JVD. No pulse deficits. Respiratory: Lungs have equal breath sounds bilaterally, clear to auscultation and percussion. No rales, rhonchi or wheezes noted. No increased work of breathing, no retractions or nasal flaring. Abdomen/GI: Soft, non-tender, with normal bowel sounds. No distension or tympany. No guarding or rebound. No evidence of tenderness throughout. Skin: Warm, dry with normal turgor. Normal color with no rashes, no lesions, and no evidence of cellulitis. MS/ Extremity: Pulses equal, no cyanosis. Neurovascular intact. Full, normal range of motion. Neuro: Awake and alert, GCS 15, oriented to person, place, time, and situation. Cranial nerves II-XII grossly intact. Motor strength 5/5 in all extremities. Sensory grossly intact. Cerebellar exam normal. Normal gait. Vital Signs: 16:49 Resp 17; Height 5 ft. 8 in. (172.72 cm); Pain 0/10; ll1 16:54 BP 129 / 74; Pulse 84; Temp 98.3; Pulse Ox 100% ; ll1 18:31 BP 99 / 67; Pulse 67; Resp 16; Pulse Ox 99% on R/A; ph 19:30 BP 117 / 71; Pulse 72; Resp 18; Pulse Ox 99% on R/A; wh MDM: 17:18 Patient medically screened. kb 19:37 Data reviewed: vital signs, nurses notes. Data interpreted: Pulse oximetry: on room air kb is 99 %. Interpretation: normal. Counseling: I had a detailed discussion with the patient and/or guardian regarding: the historical points, exam findings, and any diagnostic results supporting the discharge/admit diagnosis, lab results, the need for outpatient follow up, a family practitioner, to return to the emergency department if symptoms worsen or persist or if there are any questions or concerns that arise at home. 03/23 17:08 Order name: Glucose, Ancillary Testing; Complete Time: 17:09 EDMS 03/23 17:17 Order name: CBC with Diff; Complete Time: 18:05 kb 03/23 17:17 Order name: Basic Metabolic Panel; Complete Time: 18:04 kb 03/23 17:17 Order name: Acetone, Serum; Complete Time: 18:04 kb 03/23 19:31 Order name: Glucose, Ancillary Testing; Complete Time: 19:33 EDMS 03/23 19:36 Order name: Urine Dipstick--Ancillary (enter results); Complete Time: 19:42 mw2 03/23 16:34 Order name: Blood Glucose Level; Complete Time: 17:35 kb 03/23 17:17 Order name: Urine Dipstick-Ancillary (obtain specimen); Complete Time: 19:36 kb 03/23 17:17 Order name: IV Start; Complete Time: 17:35 kb 03/23 18:58 Order name: Blood Glucose Level; Complete Time: 19:19 kb 03/23 19:36 Order name: Urine --Ancillary (enter results); Complete Time: 19:42 mw2 Administered Medications: 18:16 Drug: NS 0.9% 1000 ml Route: IV; Rate: 1000 ml; Site: right antecubital; ph 19:24 Follow up: Response: No adverse reaction; IV Status: Completed infusion; IV Intake: ph 1000ml 19:49 Follow up: Response: No adverse reaction; IV Status: Completed infusion 18:17 Drug: Insulin Regular Human 10 units {Co-Signature: ronni (Shonda Lorenzo RN).} Route: ph IVP; Site: right antecubital; 19:24 Follow up: Response: No adverse reaction; Blood sugar is lowered ph 19:48 Follow up: Response: No adverse reaction; Blood sugar is lowered Point of Care Testing: Blood Glucose: 19:19 Blood Glucose: 166 mg/dL; Urine : 19:35 hCG Reading: Negative; Control Reading: Positive; jp3 Ranges: Critical Glucose Levels:Adult <50 mg/dl or >400 mg/dl <40 mg/dl or >180 mg/dl Disposition: 03/24 06:01 Co-signature as Attending Physician, Austin Rivera MD. rn Disposition: 03/23/20 19:33 Discharged to Home. Impression: Hyperglycemia, unspecified. - Condition is Stable. - Discharge Instructions: Hyperglycemia, [id number], Type 2 Diabetes Mellitus, Diagnosis, Adult, [id number]. - Medication Reconciliation Form, Thank You Letter, Antibiotic Education, Prescription Opioid Use, Work release form form. - Follow up: Emergency Department; When: As needed; Reason: Worsening of condition. Follow up: Private Physician; When: 2 - 3 days; Reason: Recheck today's complaints, Continuance of care, Re-evaluation by your physician. Signatures: Dispatcher [employer] EDLove Mon, SHAI-Donna BILLET CHECKER-Austin Jackson MD MD rn Hall, Patricia RN RN Lety Singh Mukesh See RN RN 1 Shonda Lorenzo RN zb Corrections: (The following items were deleted from the chart) 03/23 19:49 19:33 03/23/2020 19:33 Discharged to Home. Impression: Hyperglycemia, unspecified. wh Condition is Stable. Forms are Medication Reconciliation Form, Thank You Letter, Antibiotic Education, Prescription Opioid Use. Follow up: Emergency Department; When: As needed; Reason: Worsening of condition. Follow up: Private Physician; When: 2 - 3 days; Reason: Recheck today's complaints, Continuance of care, Re-evaluation by your physician. kb
[2020-03-23 19:41] LABS: Urine Blood NEGATIVE (NEG); Urine Glucose 2+ (NEG); Urine Protein NEGATIVE (NEG)
[2020-03-23 21:02] VITALS: TEMP 98.3
[2020-03-23 21:03] VITALS: O2SAT 99
[2020-03-23 21:05] VITALS: BP 117/71
== END 2020-03-23 19:49 | disposition home or self-care (01) ==
LOC: ER 16:21
DX: E11.65 Type 2 diabetes mellitus with hyperglycemia (principal); Z88.0 Allergy status to penicillin
CPT/HCPCS: 36415; 80048; 81003; 81025; 82010; 82947; 85025; 96361; 96374; 99284; J7030

== ENCOUNTER 2020-07-08 12:18 | Emergency (ER) | payer BC, SELFPAY ==
[2020-07-08] MEDS ORDERED: TETRACAINE HCL 0.5% 4ML OPTH ONE (15:21)
[2020-07-08] MEDS ORDERED: FLUORESCEIN SODIUM 1 MG/WRAP ONE (15:22)
--- NOTE | 2020-07-08 15:34 | EDPHYS ---
Physician Documentation [facility] Name: Jayne Rivera Age: 34 yrs Sex: Female : 1985 Arrival Date: 07/08/2020 Time: 12:23 Bed 12 Private MD: ED Physician Jacob Benton HPI: 07/08 15:27 This 34 yrs old Female presents to ER via Ambulatory with complaints of Eye annalee Pain. 15:27 The patient is experiencing pain, redness, to the right eye. Onset: The annalee symptoms/episode began/occurred 3 day(s) ago. Duration: the symptoms are continuous. Aggravated by blinking, light, opening eye, Alleviated by blinking. Associated signs and symptoms: Pertinent positives: None. Patient wears glasses. Severity of symptoms: At their worst the symptoms were moderate in the emergency department the symptoms are unchanged. The patient has not experienced similar symptoms in the past. 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 - Social history:: Smoking status: Patient denies any tobacco usage or history of. - Family history:: not pertinent. ROS: 15:27 Constitutional: Negative for fever, chills, and weight loss, ENT: Negative for injury, annalee pain, and discharge, Neck: Negative for injury, pain, and swelling, Cardiovascular: Negative for chest pain, palpitations, and edema, Respiratory: Negative for shortness of breath, cough, wheezing, and pleuritic chest pain, Abdomen/GI: Negative for abdominal pain, nausea, vomiting, diarrhea, and constipation, Back: Negative for injury and pain, : Negative for injury, bleeding, discharge, and swelling, MS/Extremity: Negative for injury and deformity, Skin: Negative for injury, rash, and discoloration, Neuro: Negative for headache, weakness, numbness, tingling, and seizure, Psych: Negative for depression, anxiety, suicide ideation, homicidal ideation, and hallucinations, Allergy/Immunology: Negative for hives, rash, and allergies, Endocrine: Negative for neck swelling, polydipsia, polyuria, polyphagia, and marked weight changes, Hematologic/Lymphatic: Negative for swollen nodes, abnormal bleeding, and unusual bruising. 15:27 Eyes: Positive for itching, pain, redness. Exam: 15:27 Constitutional: This is a well developed, well nourished patient who is awake, alert, annalee and in no acute distress. Head/Face: Normocephalic, atraumatic. ENT: Nares patent. No nasal discharge, no septal abnormalities noted. Tympanic membranes are normal and external auditory canals are clear. Oropharynx with no redness, swelling, or masses, exudates, or evidence of obstruction, uvula midline. Mucous membranes moist. Neck: Trachea midline, no thyromegaly or masses palpated, and no cervical lymphadenopathy. Supple, full range of motion without nuchal rigidity, or vertebral point tenderness. No Meningismus. Chest/axilla: Normal chest wall appearance and motion. Nontender with no deformity. No lesions are appreciated. Cardiovascular: Regular rate and rhythm with a normal S1 and S2. No gallops, murmurs, or rubs. Normal PMI, no JVD. No pulse deficits. Respiratory: Lungs have equal breath sounds bilaterally, clear to auscultation and percussion. No rales, rhonchi or wheezes noted. No increased work of breathing, no retractions or nasal flaring. Abdomen/GI: Soft, non-tender, with normal bowel sounds. No distension or tympany. No guarding or rebound. No evidence of tenderness throughout. Back: No spinal tenderness. No costovertebral tenderness. Full range of motion. Skin: Warm, dry with normal turgor. Normal color with no rashes, no lesions, and no evidence of cellulitis. MS/ Extremity: Pulses equal, no cyanosis. Neurovascular intact. Full, normal range of motion. Neuro: Awake and alert, GCS 15, oriented to person, place, time, and situation. Cranial nerves II-XII grossly intact. Motor strength 5/5 in all extremities. Sensory grossly intact. Cerebellar exam normal. Normal gait. Psych: Awake, alert, with orientation to person, place and time. Behavior, mood, and affect are within normal limits. 15:27 Eyes: Pupils: no acute changes, equal, round, and reactive to light and accomodation, Extraocular movements: intact throughout, Conjunctiva: injected, Corneas: are normal, Sclera: injected, Anterior chamber: normal, no acute changes, Lids and lashes: appear normal, no acute changes. Vital Signs: 12:40 BP 106 / 95; Pulse 70; Resp 16; Temp 97.9; Pulse Ox 97% ; Weight 111.13 kg; Height 5 ll1 ft. 6 in. (167.64 cm); Pain 7/10; 15:56 BP 108 / 88; Pulse 79; Resp 17; Pulse Ox 99% on R/A; tw2 12:40 Body Mass Index 39.54 (111.13 kg, 167.64 cm) ll1 MDM: 14:15 Patient medically screened. annalee 15:31 Differential diagnosis: Corneal abrasion of Corneal ulcer of Acute iritis of Data annalee reviewed: vital signs, nurses notes. Data interpreted: fabrication manager: not applicable for this patient encounter. rate is 70 beats/min, rhythm is regular. Counseling: I had a detailed discussion with the patient and/or guardian regarding: the historical points, exam findings, and any diagnostic results supporting the discharge/admit diagnosis, the need for outpatient follow up, for definitive care, an opthalmologist. 07/08 15:03 Order name: Eye Tray; Complete Time: 15:07 [place] Administered Medications: 15:35 Drug: Tetracaine Solution (0.5 %) 2 drops Route: Topical; Site: right eye; tw2 15:35 Drug: Fluorescein Strip 1 strip Route: Ophthalmic; Site: right eye; tw2 15:48 Drug: Tobramycin Ointment (0.3 %) 1 application Route: Ophthalmic; Site: right eye; tw2 Disposition: 07/08/20 15:33 Discharged to Home. Impression: Ocular pain, right eye, Conjunctivitis. - Condition is Stable. - Discharge Instructions: Allergic Conjunctivitis, Adult, Allergic Conjunctivitis, [id number]. - Prescriptions for Tobrex 0.3 % Ophthalmic ointment - apply 1 inch ribbon by OPHTHALMIC route 3 times per day; 3.5 gram. Claritin 10 mg Oral Tablet - take 1 tablet by ORAL route once daily As needed; 30 tablet. - Medication Reconciliation Form, Thank You Letter, Antibiotic Education, Prescription Opioid Use form. - Follow up: Private Physician; When: 2 - 3 days; Reason: Recheck today's complaints, Continuance of care, Re-evaluation by your physician. Follow up: Narciso Guzman MD; When: Tomorrow; Reason: Recheck today's complaints, Re-evaluation by your physician. - Problem is new. - Symptoms have improved. Signatures: Jacob Benton MD MD cha Wise, Tara RN RN tw2 Mukesh See RN RN ll1 Corrections: (The following items were deleted from the chart) 15:56 15:33 07/08/2020 15:33 Discharged to Home. Impression: Ocular pain, right eye; tw2 Conjunctivitis. Condition is Stable. Forms are Medication Reconciliation Form, Thank You Letter, Antibiotic Education, Prescription Opioid Use. Follow up: Private Physician; When: 2 - 3 days; Reason: Recheck today's complaints, Continuance of care, Re-evaluation by your physician. Follow up: Narciso Guzman; When: Tomorrow; Reason: Recheck today's complaints, Re-evaluation by your physician. Problem is new. Symptoms have improved. annalee
--- NOTE | 2020-07-08 15:34 | ER ---
Nurse's Notes [facility] Name: Jayne Rivera Age: 34 yrs Sex: Female : 1985 Arrival Date: 07/08/2020 Time: 12:23 Bed 12 Private MD: Diagnosis: Ocular pain, right eye;Conjunctivitis Presentation: 07/08 12:40 Chief complaint: Patient states: R eye redness, pain, irritation since yesterday. ll1 Allergy eye drops didn't;t help. L eye slight red also. No fever. Coronavirus screen: Client denies travel out of the [place] in the last 14 days. At this time, the client does not indicate any symptoms associated with coronavirus-19. Ebola Screen: Patient denies travel to an Ebola-affected area in the 21 days before illness onset. Mechanism of Injury: No Mechanism of Injury. Initial Sepsis Screen: Does the patient meet any 2 criteria? No. Patient's initial sepsis screen is negative. Does the patient have a suspected source of infection? Yes: Other: eye irritation. Risk Assessment: Do you want to hurt yourself or someone else? Patient reports no desire to harm self or others. Onset of symptoms was July 07, 2020. 12:40 Method Of Arrival: Ambulatory ll1 12:40 Acuity: VIJAY 4 ll1 RN LONG TERM CARE: 14:52 LMP N/A - tw2 Historical: - Allergies: 12:42 PENICILLINS; ll1 - PMHx: 12:42 Asthma; Diabetes - NIDDM; ll1 - PSHx: 12:42 Tonsillectomy; ll1 - Immunization history:: Flu vaccine is not up to date. - Social history:: Smoking status: Patient denies any tobacco usage or history of. - Family history:: not pertinent. Screenin:52 Abuse screen: Denies threats or abuse. Nutritional screening: No deficits noted. tw2 Tuberculosis screening: No symptoms or risk factors identified. Fall Risk None identified. Assessment: 14:51 General: Appears in no apparent distress. obese, well groomed, Behavior is calm, tw2 cooperative, appropriate for age. Pain: Complains of pain in right eye. Neuro: Level of Consciousness is awake, alert, obeys commands, Oriented to person, place, time, situation. Cardiovascular: Patient's skin is warm and dry. Respiratory: Airway is patent Respiratory effort is even, unlabored, Respiratory pattern is regular, symmetrical. GI: No signs and/or symptoms were reported involving the gastrointestinal system. EENT: Eyes are tearing on inner aspect of conjuctiva of right eye Sclera/Cornea are reddened in outer aspect of conjuctiva of right eye, iris of right eye, inner aspect of conjuctiva of right eye, outer aspect of conjuctiva of left eye, iris of left eye and inner aspect of conjunctiva of left eye Reports pain in right eye. Musculoskeletal: Range of motion: intact in all extremities. 15:56 Reassessment: Patient appears in no apparent distress at this time. No changes from tw2 previously documented assessment. Patient and/or family updated on plan of care and expected duration. Pain level reassessed. Patient is alert, oriented x 3, equal unlabored respirations, skin warm/dry/pink. Vital Signs: 12:40 BP 106 / 95; Pulse 70; Resp 16; Temp 97.9; Pulse Ox 97% ; Weight 111.13 kg; Height 5 ll1 ft. 6 in. (167.64 cm); Pain 7/10; 15:56 BP 108 / 88; Pulse 79; Resp 17; Pulse Ox 99% on R/A; tw2 12:40 Body Mass Index 39.54 (111.13 kg, 167.64 cm) ll1 ED Course: 12:23 Patient arrived in ED. ds1 12:41 Triage completed. ll1 12:42 Arm band placed on. ll1 14:14 Bed in low position. Call light in reach. Pulse ox on. NIBP on. tw2 14:15 Jacob Benton MD is Attending Physician. annalee 14:50 Gillian Mueller RN is Primary Nurse. tw2 15:32 Narciso Guzman MD is Referral Physician. annalee 15:55 No provider procedures requiring assistance completed. Patient did not have IV access tw2 during this emergency room visit. Administered Medications: 15:35 Drug: Tetracaine Solution (0.5 %) 2 drops Route: Topical; Site: right eye; tw2 15:35 Drug: Fluorescein Strip 1 strip Route: Ophthalmic; Site: right eye; tw2 15:48 Drug: Tobramycin Ointment (0.3 %) 1 application Route: Ophthalmic; Site: right eye; tw2 Outcome: 15:33 Discharge ordered by . annalee 15:55 Discharged to home ambulatory. tw2 15:55 Condition: stable 15:55 Discharge instructions given to patient, Instructed on discharge instructions, follow up and referral plans. medication usage, Demonstrated understanding of instructions, follow-up care, medications, Prescriptions given X 2. 15:56 Patient left the ED. tw2 Signatures: Jacob Benton MD MD cha Sanford, Demi ds1 Gillian Mueller RN RN tw2 Mukesh See RN RN ll1
[2020-07-08] MEDS ORDERED: TOBRAMYCIN SULF 0.3% OPTH OINT ONE (15:44)
[2020-07-08 16:01] VITALS: TEMP 97.9
[2020-07-08 16:02] VITALS: BP 108/88; O2SAT 99
== END 2020-07-08 15:56 | disposition home or self-care (01) ==
LOC: ER 12:18
DX: H10.9 Unspecified conjunctivitis (principal); Z88.0 Allergy status to penicillin
CPT/HCPCS: 99283

== ENCOUNTER 2021-01-16 08:24 | Emergency (ER) | payer BC, SELFPAY ==
[2021-01-16] MEDS ORDERED: LIDOCAINE VISCOUS 2% SOLN 15 ML UDC ONE (10:43)
[2021-01-16] MEDS ORDERED: MAGNES/ALUMIN/SIMET 30ML UCUP ONE (10:43)
--- NOTE | 2021-01-16 13:22 | EDPHYS ---
Physician Documentation [facility] Name: Jayne Rivera Age: 35 yrs Sex: Female : 1985 Arrival Date: 01/16/2021 Time: 08:26 Bed 14 Private MD: ED Physician Caity Horowitz HPI: 01/16 14:32 This 35 yrs old Female presents to ER via Ambulatory with complaints of Sore kb Throat, Weakness. 14:32 The patient or guardian reports cough, that is intermittent, described as mild, with no kb sputum, difficulty breathing. Onset: The symptoms/episode began/occurred this morning. Severity of symptoms: At their worst the symptoms were moderate, in the emergency department the symptoms are unchanged. Modifying factors: The symptoms are alleviated by nothing, the symptoms are aggravated by nothing. Associated signs and symptoms: Pertinent positives: sore throat, Pertinent negatives: chest pain, diarrhea, ear ache, fever, nausea, rhinorrhea, vomiting. The patient has not experienced similar symptoms in the past. The patient has not recently seen a physician. Pt reports sore throat, headache, cough and shortness of breath that started this morning. States her was recently diagnosed with covid. Historical: - Allergies: 10:15 PENICILLINS; ss - PMHx: 10:15 Asthma; Diabetes - NIDDM; ss - Immunization history:: Client reports having NOT received the Covid vaccine. - Social history:: Smoking status: Patient denies any tobacco usage or history of. ROS: 14:31 Constitutional: Negative for fever, chills, and weight loss. kb 14:31 ENT: Positive for sore throat. 14:31 Respiratory: Positive for cough, shortness of breath. 14:31 Neuro: Positive for headache. 14:31 All other systems are negative. Exam: 14:31 Constitutional: This is a well developed, well nourished patient who is awake, alert, kb and in no acute distress. Head/Face: Normocephalic, atraumatic. ENT: Moist Mucous membranes Cardiovascular: Regular rate and rhythm with a normal S1 and S2. No gallops, murmurs, or rubs. No pulse deficits. Respiratory: Respirations even and unlabored. No increased work of breathing, no retractions or nasal flaring. Abdomen/GI: Soft, non-tender. No distention Skin: Warm, dry with normal turgor. Normal color. MS/ Extremity: Pulses equal, no cyanosis. Neurovascular intact. Full, normal range of motion. Neuro: Awake and alert, GCS 15, oriented to person, place, time, and situation. Moves all extremities. Normal gait. Psych: Awake, alert, with orientation to person, place and time. Behavior, mood, and affect are within normal limits. Vital Signs: 10:13 BP 144 / 97; Pulse 88; Resp 20; Temp 98.8(TE); Pulse Ox 100% on R/A; Weight 108.86 kg; ss Height 5 ft. 7 in. (170.18 cm); 13:55 BP 106 / 75; Pulse 90; Resp 20; Temp 99.6; Pulse Ox 100% ; vg1 15:01 BP 117 / 85; Pulse 94; Resp 20; Pulse Ox 98% on R/A; vg1 15:45 BP 107 / 78; Pulse 83; Resp 18; Pulse Ox 100% on R/A; vg1 17:18 BP 119 / 86; Pulse 80; Resp 20; Pulse Ox 97% on R/A; vg1 10:13 Body Mass Index 37.59 (108.86 kg, 170.18 cm) ss MDM: 10:18 Patient medically screened. kb 14:30 Data reviewed: vital signs, nurses notes. Data interpreted: Pulse oximetry: on room air kb is 100 %. Interpretation: normal. Counseling: I had a detailed discussion with the patient and/or guardian regarding: the historical points, exam findings, and any diagnostic results supporting the discharge/admit diagnosis, lab results, the need for outpatient follow up, a family practitioner, to return to the emergency department if symptoms worsen or persist or if there are any questions or concerns that arise at home. 01/16 10:18 Order name: Strep; Complete Time: 12:48 kb 01/16 12:47 Order name: Throat Culture EDMS 01/16 13:18 Order name: SARS-COV-2 RT PCR; Complete Time: 13:19 EDMS Administered Medications: 10:24 Drug: GI Cocktail without - (Maalox Suspension 30 ml, Lidocaine Liquid 2 % 15 ss ml) Route: PO; 13:55 Follow up: Response: No adverse reaction; No change in condition vg1 14:55 Drug: Ketorolac 30 mg Route: IVP; Site: right antecubital; vg1 16:13 Follow up: Response: No adverse reaction; Pain is decreased vg1 14:58 Drug: REGEN-COV Dose Pack 120 mg/mL-120 mg/mL (EUA) 1 application {Note: .} Route: IV; tr6 Rate: calculated rate; Site: right antecubital; 16:13 Follow up: IV Status: Completed infusion; IV Intake: 260ml vg1 Disposition Summary: 01/16/21 13:21 Discharge Ordered Location: Home kb Condition: Stable kb Diagnosis - Coronavirus infection, unspecified kb Followup: kb - With: Emergency Department - When: As needed - Reason: Worsening of condition Followup: kb - With: Private Physician - When: 2 - 3 days - Reason: Recheck today's complaints, Continuance of care, Re-evaluation by your physician Discharge Instructions: - Discharge Summary Sheet kb - Viral Respiratory Infection, [id number] kb - COVID-19 kb Forms: - Medication Reconciliation Form kb - Thank You Letter kb - Antibiotic Education kb - Prescription Opioid Use kb Addendum: 01/18/2021 19:11 Co-signature as Attending Physician, Caity Horowitz MD. m a2 Signatures: Dispatcher [employer] Love Newsome, SHAI-C TENANT SELECTOR-Lindy Argueta, STEPHEN MITCHELL Caity Horowitz MD MD ma2 Katarzyna Caraballo RN RN vg1 Nica Sampson RN RN tr6 Corrections: (The following items were deleted from the chart) 01/16 12:01 10:18 CORONAVIRUS+MR.LAB.BRZ ordered. EDMS EDMS
--- NOTE | 2021-01-16 13:22 | ER ---
Nurse's Notes [facility] Name: Jayne Rivera Age: 35 yrs Sex: Female : 1985 Arrival Date: 01/16/2021 Time: 08:26 Bed 14 Private MD: Diagnosis: Coronavirus infection, unspecified Presentation: 01/16 10:13 Chief complaint: Patient states: headache, sore throat and shortness of breath that ss began this morning. Pt believes that she may have COVID because her does. Coronavirus screen: Client denies travel out of the [place] in the last 14 days. Ebola Screen: Patient denies exposure to infectious person. Patient denies travel to an Ebola-affected area in the 21 days before illness onset. Initial Sepsis Screen: Does the patient meet any 2 criteria? No. Patient's initial sepsis screen is negative. Does the patient have a suspected source of infection? No. Patient's initial sepsis screen is negative. Risk Assessment: Do you want to hurt yourself or someone else? Patient reports no desire to harm self or others. Onset of symptoms was January 16, 2021. 10:13 Method Of Arrival: Ambulatory ss 10:13 Acuity: VIJAY 4 ss Historical: - Allergies: 10:15 PENICILLINS; ss - PMHx: 10:15 Asthma; Diabetes - NIDDM; ss - Immunization history:: Client reports having NOT received the Covid vaccine. - Social history:: Smoking status: Patient denies any tobacco usage or history of. Screenin:40 Abuse screen: Denies threats or abuse. Nutritional screening: No deficits noted. vg1 Tuberculosis screening: No symptoms or risk factors identified. Fall Risk No fall in past 12 months (0 pts). No secondary diagnosis (0 pts). IV access (20 points). Ambulatory Aid- None/Bed Rest/Nurse Assist (0 pts). Gait- Normal/Bed Rest/Wheelchair (0 pts) Mental Status- Oriented to own ability (0 pts). Total Uriostegui Fall Scale indicates No Risk (0-24 pts). Assessment: 13:50 General: Appears in no apparent distress. uncomfortable, Behavior is calm, cooperative. vg1 Pain: Complains of pain in throat Pain currently is 10 out of 10 on a pain scale. Noted to be grimacing. Neuro: Level of Consciousness is awake, alert, obeys commands, Oriented to person, place, time, situation. Cardiovascular: Patient's skin is warm and dry. Respiratory: Airway is patent Respiratory effort is even, unlabored, Breath sounds are clear bilaterally. GI: No signs and/or symptoms were reported involving the gastrointestinal system. : No signs and/or symptoms were reported regarding the genitourinary system. EENT: Throat is reddened. Derm: Skin is intact, is healthy with good turgor. Musculoskeletal: Circulation, motion, and sensation intact. 14:45 Reassessment: Patient appears in no apparent distress at this time. No changes from vg1 previously documented assessment. Patient and/or family updated on plan of care and expected duration. Pain level reassessed. Patient is alert, oriented x 3, equal unlabored respirations, skin warm/dry/pink. pt c/o pain in throat. Provider notified. Pt up for d/c currently waiting for IV fluids to complete in an hour, then pt needs to be monitored an hour after for monitoring. Received VO from Geovany GRIER to administer Toradol 30 mg IVP x1. 15:11 Reassessment: Pt vomited; provider notified. Provider stated to ask pt if wants to vg1 continue to receive Regen Cov pt stated would like to continue and if vomits again would stop the infusion. 16:13 Reassessment: Patient appears in no apparent distress at this time. Patient and/or vg1 family updated on plan of care and expected duration. Pain level reassessed. Patient is alert, oriented x 3, equal unlabored respirations, skin warm/dry/pink. Rates pain 4/10 Patient states feeling better. 17:18 Reassessment: Patient appears in no apparent distress at this time. Patient and/or vg1 family updated on plan of care and expected duration. Pain level reassessed. Patient is alert, oriented x 3, equal unlabored respirations, skin warm/dry/pink. Patient states feeling better. Vital Signs: 10:13 BP 144 / 97; Pulse 88; Resp 20; Temp 98.8(TE); Pulse Ox 100% on R/A; Weight 108.86 kg; ss Height 5 ft. 7 in. (170.18 cm); 13:55 BP 106 / 75; Pulse 90; Resp 20; Temp 99.6; Pulse Ox 100% ; vg1 15:01 BP 117 / 85; Pulse 94; Resp 20; Pulse Ox 98% on R/A; vg1 15:45 BP 107 / 78; Pulse 83; Resp 18; Pulse Ox 100% on R/A; vg1 17:18 BP 119 / 86; Pulse 80; Resp 20; Pulse Ox 97% on R/A; vg1 10:13 Body Mass Index 37.59 (108.86 kg, 170.18 cm) ED Course: 08:26 Patient arrived in ED. ds1 10:14 Triage completed. ss 10:15 Arm band placed on right wrist. ss 10:18 Love Armenta FNP-C is PHCP. kb 10:18 Caity Horowitz MD is Attending Physician. kb 10:24 Strep Sent. ss 13:45 Katarzyna Caraballo, STEPHEN is Primary Nurse. vg1 14:01 Inserted saline lock: 20 gauge in right antecubital area, using aseptic technique. dh4 14:40 Patient has correct armband on for positive identification. Placed in gown. Bed in low vg1 position. Call light in reach. Side rails up X 1. 14:57 Resting quietly. tr6 14:57 No provider procedures requiring assistance completed. Patient maintains SpO2 tr6 saturation greater than 95% on room air. 17:18 IV discontinued, intact, bleeding controlled, No redness/swelling at site. Pressure vg1 dressing applied. Administered Medications: 10:24 Drug: GI Cocktail without - (Maalox Suspension 30 ml, Lidocaine Liquid 2 % 15 ss ml) Route: PO; 13:55 Follow up: Response: No adverse reaction; No change in condition vg1 14:55 Drug: Ketorolac 30 mg Route: IVP; Site: right antecubital; vg1 16:13 Follow up: Response: No adverse reaction; Pain is decreased vg1 14:58 Drug: REGEN-COV Dose Pack 120 mg/mL-120 mg/mL (EUA) 1 application {Note: .} Route: IV; tr6 Rate: calculated rate; Site: right antecubital; 16:13 Follow up: IV Status: Completed infusion; IV Intake: 260ml vg1 Intake: 16:13 IV: 260ml; Total: 260ml. vg1 Outcome: 13:21 Discharge ordered by . kb 17:18 Discharged to home ambulatory. vg1 17:18 Condition: stable 17:18 Discharge instructions given to patient, Instructed on discharge instructions, follow up and referral plans. Demonstrated understanding of instructions, follow-up care. 17:19 Patient left the ED. vg1 Signatures: Love Armenta, HAND MIXER-C HAND MIXER-Ckb Cate Larsen ds1 Lindy Kwan, STEPHEN RN [facility] Katarzyna Caraballo RN RN vg1 Nica Sampson RN RN tr6 Corrections: (The following items were deleted from the chart) 12:01 10:24 CORONAVIRUS+MR.LAB.BRZ drawn and sent. EDMS
[2021-01-16] MEDS ORDERED: NA CHLORIDE 0.9% 250 ML ONE (14:12)
[2021-01-16] MEDS ORDERED: CASIRIVIMAB/IMDEVIMAB 10 ML VIAL ONE (14:12)
[2021-01-16] MEDS ORDERED: KETOROLAC 30 MG/ML INJ ONE (15:08)
[2021-01-16 17:28] VITALS: TEMP 99.6
[2021-01-16 17:32] VITALS: BP 119/86; O2SAT 97
== END 2021-01-16 17:19 | disposition home or self-care (01) ==
LOC: ER 08:24
DX: U07.1 COVID-19 (principal); Z88.0 Allergy status to penicillin
CPT/HCPCS: 87070; 87081; 96365; 96375; 99284; J7050; U0003

== ENCOUNTER 2021-07-28 06:22 | Emergency (ER) | payer SELFPAY ==
[2021-07-28] MEDS ORDERED: TETRACAINE HCL 0.5% 4ML OPTH ONE (06:38)
[2021-07-28] MEDS ORDERED: FLUORESCEIN SODIUM 1 MG/WRAP ONE (06:38)
[2021-07-28 07:08] LABS: Absolute Lymphocytes (CBC) 2.7 K/uL (0.7-4.9); Hematocrit 42.3 % (36.0-45.0); Lymphocytes % 33.8 % (15.3-44.8); MPV 7.7 fL (7.6-11.3); RBC Red Blood Cell Count 4.83 M/uL (3.86-4.86)
[2021-07-28 07:23] LABS: BUN Blood Urea Nitrogen 9 mg/dL (7-18); Bicarbonate 27 mmol/L (21-32); Glucose Level 360 mg/dL (74-106); Potassium 3.9 mmol/L (3.5-5.1); Sodium Level 137 mmol/L (136-145)
[2021-07-28] MEDS ORDERED: ONDANSETRON 4 MG/2 ML VIAL ONE (07:35)
[2021-07-28] MEDS ORDERED: MORPHINE 4 MG/ML SYR ONE (07:35)
--- NOTE | 2021-07-28 08:30 | RAD REPORT ---
EXAM DESCRIPTION: CT - [facility] CLINICAL HISTORY: orbital cellulitis Pain and swelling COMPARISON: <Comparisons> TECHNIQUE: Axial 2 mm thick images of the face were obtained with sagittal and coronal reconstructio n images. All CT scans are performed using dose optimization technique as appropriate and may include automated exposure control or mA/KV adjustment according to patient size. FINDINGS: There is slight right-sided proptosis and divergent gaze noted.No vitreous abnormality is seen bilaterally. No evidence of orbital cellulitis is seen.No preseptal abnormality.The paranasal sinuses and mastoids are clear. IMPRESSION: Mild right-sided proptosis and divergent gaze is noted. No evidence of orbital or preseptal cellulitis seen.
--- NOTE | 2021-07-28 09:07 | EDPHYS ---
Physician Documentation [facility] Name: Jayne Rivera Age: 36 yrs Sex: Female : 1985 Arrival Date: 07/28/2021 Time: 06:26 Bed 19 Private MD: ED Physician Wilder Benton HPI: 07/28 07:32 This 36 yrs old Female presents to ER via Ambulatory with complaints of Eye kb Pain. 07:32 The patient is experiencing pain, redness, The patient sustained None. to the right kb eye, caused by an unknown mechanism. Onset: The symptoms/episode began/occurred 5 day(s) ago. Duration: the symptoms are continuous. Aggravated by nothing. Alleviated by nothing. Associated signs and symptoms: Pertinent positives: None. Patient wears glasses. Severity of symptoms: At their worst the symptoms were moderate in the emergency department the symptoms are unchanged. The patient has not experienced similar symptoms in the past. The patient has not recently seen a physician. 07:40 Pt reports pain and redness to and around right eye since Sunday that has been getting kb worse. Historical: - Allergies: 06:43 PENICILLINS; sm5 - Home Meds: 06:43 Levemir subcutaneous [Active]; Metformin Oral [Active]; sm5 - PMHx: 06:43 Asthma; Diabetes - NIDDM; sm5 - Immunization history:: Flu vaccine is not up to date. - Social history:: Smoking status: unknown. ROS: 07:28 Constitutional: Negative for fever, chills, and weight loss. kb 07:28 ENT: Positive for ear pain. 07:28 All other systems are negative. Exam: 07:28 Constitutional: This is a well developed, well nourished patient who is awake, alert, kb and in no acute distress. Head/Face: Normocephalic, atraumatic. ENT: Moist Mucous membranes Cardiovascular: Regular rate and rhythm with a normal S1 and S2. No gallops, murmurs, or rubs. No pulse deficits. Respiratory: Respirations even and unlabored. No increased work of breathing. Talking in full sentences MS/ Extremity: Pulses equal, no cyanosis. Neurovascular intact. Full, normal range of motion. Neuro: Awake and alert, GCS 15, oriented to person, place, time, and situation. Moves all extremities. Normal gait. Psych: Awake, alert, with orientation to person, place and time. Behavior, mood, and affect are within normal limits. 07:28 Eyes: Periorbital structures: cellulitis, on the right supraorbital ridge and right lower eyelid, erythema, that is moderate, on the right supraorbital ridge, right upper eyelid, medial canthus of right eye, lateral canthus of right eye and right lower eyelid, Pupils: equal, round, and reactive to light and accomodation, Extraocular movements: intact throughout, Conjunctiva: injected, in the right eye, Corneas: are normal, abrasion, is not appreciated, foreign body, is not appreciated, a fluorescein strip employed to appreciate the findings. Vital Signs: 06:35 BP 121 / 84; Pulse 84; Resp 18; Pulse Ox 100% ; Weight 108.86 kg; Height 5 ft. 8 in. tw5 (172.72 cm); Pain 8/10; 07:00 BP 123 / 77; Pulse 82; Resp 20; Pulse Ox 94% ; Pain 9/10; ag7 08:32 BP 106 / 76; Pulse 78; Resp 20; Pulse Ox 95% ; Pain 0/10; ag7 08:34 Pain 0/10; ag7 09:37 BP 110 / 76; Pulse 78; Resp 20; Pulse Ox 97% on R/A; Pain 0/10; ag7 06:35 Body Mass Index 36.49 (108.86 kg, 172.72 cm) tw5 Visual Acuity: 09:39 ; patient is not able to open eye related to pain ag7 MDM: 06:31 Patient medically screened. 07:27 Data reviewed: vital signs, nurses notes. Data interpreted: Pulse oximetry: on room air kb is 100 %. Interpretation: normal. 08:38 Physician consultation: Sanjuana Hansen MD was called at 08:38, regarding consult, patient's condition, voicemail left, awaiting callback. 08:57 Counseling: I had a detailed discussion with the patient and/or guardian regarding: the kb historical points, exam findings, and any diagnostic results supporting the discharge/admit diagnosis, lab results, radiology results, the need for outpatient follow up, an opthalmologist, to return to the emergency department if symptoms worsen or persist or if there are any questions or concerns that arise at home. Physician consultation: Sanjuana Hansen MD was contacted at 08:58, regarding consult, patient's condition, and will see patient in office, later today. 07/28 06:50 Order name: CBC with Diff; Complete Time: 07:11 kb 07/28 06:50 Order name: Basic Metabolic Panel; Complete Time: 07:25 kb 07/28 07:38 Order name: Orbits W/Cont; Complete Time: 08:31 EDMS 07/28 06:36 Order name: Eye Tray; Complete Time: 06:38 kb 07/28 06:36 Order name: Fluoresene Opth strip; Complete Time: 06:38 kb 07/28 06:50 Order name: IV Start; Complete Time: 06:59 kb Administered Medications: 06:38 Drug: Tetracaine Drops 0.5 % 1 drops {Note: administered by NP. Love} Route: sm5 Ophthalmic; Site: right eye; 07:58 Drug: Zofran (Ondansetron) 4 mg {Note: PATIENT RECEIVED MEDICATION AFTER RETURNING FROM 7 CT.} Route: IVP; Site: right antecubital; 08:33 Follow up: Response: No adverse reaction; Marked relief of symptoms ag7 07:59 Drug: morphine 4 mg {Note: patient received the medication after returning from the CT, ag7 RASS 0.} Route: IVP; Site: right antecubital; 08:34 Follow up: Pain 0/10; Response: No adverse reaction; Marked relief of symptoms; Pain is ag7 decreased; RASS: Drowsy (-1) Disposition Summary: 07/28/21 09:06 Discharge Ordered Location: Home kb Condition: Stable kb Diagnosis - Other conjunctivitis kb Followup: kb - With: Sanjuana Hansen MD - When: Today - Reason: Discharge Instructions: - Discharge Summary Sheet kb Forms: - Medication Reconciliation Form kb - Thank You Letter kb - Antibiotic Education kb - Prescription Opioid Use kb Addendum: 07/31/2021 19:16 Co-signature as Attending Physician, Wilder Benton MD. [facility] Signatures: Dispatcher [employer] Love Newsome, SHAI-C SHAI-Wilder Guzman MD MD 7 Nica Welsh 5 Milena Devine RN RN 5 Bry, Linette, RN RN ag7 Corrections: (The following items were deleted from the chart) 07/28 07:38 06:51 Facial Bones W/ Con \T\ MPR+CT.RAD.BRZ ordered. EDMS EDMS 09:05 08:57 Physician consultation: Sanjuana Hansen MD was contacted at 08:58, regarding kb consult, patient's condition, and will see patient in office, kb
--- NOTE | 2021-07-28 09:07 | ER ---
Nurse's Notes [facility] Name: Jayne Rivera Age: 36 yrs Sex: Female : 1985 Arrival Date: 07/28/2021 Time: 06:26 Bed 19 Private MD: Diagnosis: Other conjunctivitis Presentation: 07/28 06:35 Chief complaint: Patient states: "My right eye hurts, it is swollen and feels like tw5 sandpaper." Patient states that it has been occuring since Sunday. Coronavirus screen: Vaccine status: Patient reports being unvaccinated. Ebola Screen: Patient negative for fever greater than or equal to 101.5 degrees Fahrenheit, and additional compatible Ebola Virus Disease symptoms Patient denies exposure to infectious person. Patient denies travel to an Ebola-affected area in the 21 days before illness onset. Mechanism of Injury: unknown. The patient denies any loss of vision. Initial Sepsis Screen: Does the patient meet any 2 criteria? No. Patient's initial sepsis screen is negative. Does the patient have a suspected source of infection? No. Patient's initial sepsis screen is negative. Risk Assessment: Do you want to hurt yourself or someone else? Patient reports no desire to harm self or others. Onset of symptoms is unknown. 06:35 Method Of Arrival: Ambulatory tw5 06:35 Acuity: VIJAY 3 tw5 Triage Assessment: 06:39 General: Appears uncomfortable, Behavior is appropriate for age. Pain: Complains of tw5 pain in right eye Pain currently is 8 out of 10 on a pain scale. EENT: Eyes are tearing on outer aspect of conjuctiva of right eye, iris of right eye and inner aspect of conjuctiva of right eye. Historical: - Allergies: 06:43 PENICILLINS; sm5 - Home Meds: 06:43 Levemir subcutaneous [Active]; Metformin Oral [Active]; sm5 - PMHx: 06:43 Asthma; Diabetes - NIDDM; sm5 - Immunization history:: Flu vaccine is not up to date. - Social history:: Smoking status: unknown. Screenin:42 Abuse screen: Denies threats or abuse. Denies injuries from another. Nutritional sm5 screening: No deficits noted. Tuberculosis screening: No symptoms or risk factors identified. Fall Risk None identified. Assessment: 07:10 General: Appears in no apparent distress. Behavior is calm, cooperative, quiet. Pain: ag7 Complains of pain in right eye Pain does not radiate. Pain currently is 9 out of 10 on a pain scale. Quality of pain is described as aching, Pain began suddenly, Is continuous. Neuro: Level of Consciousness is awake, alert, Oriented to person, place, time, situation, Appropriate for age. Cardiovascular: Heart tones S1 S2 present Capillary refill < 3 seconds Patient's skin is warm and dry. Respiratory: Breath sounds are clear bilaterally. EENT: Eyes are tearing on outer aspect of conjuctiva of right eye, iris of right eye and inner aspect of conjuctiva of right eye SENSITIVE TO LIGHT, C/O PAIN 9/10 CONTINOUS. Sclera/Cornea. 08:30 EENT: Eyes with exudate noted from inner aspect of conjuctiva of right eye ag7 Sclera/Cornea are reddened in outer aspect of conjuctiva of right eye and inner aspect of conjuctiva of right eye. Vital Signs: 06:35 BP 121 / 84; Pulse 84; Resp 18; Pulse Ox 100% ; Weight 108.86 kg; Height 5 ft. 8 in. tw5 (172.72 cm); Pain 8/10; 07:00 BP 123 / 77; Pulse 82; Resp 20; Pulse Ox 94% ; Pain 9/10; ag7 08:32 BP 106 / 76; Pulse 78; Resp 20; Pulse Ox 95% ; Pain 0/10; ag7 08:34 Pain 0/10; ag7 09:37 BP 110 / 76; Pulse 78; Resp 20; Pulse Ox 97% on R/A; Pain 0/10; ag7 06:35 Body Mass Index 36.49 (108.86 kg, 172.72 cm) tw5 Visual Acuity: 09:39 ; patient is not able to open eye related to pain ag7 ED Course: 06:26 Patient arrived in ED. es 06:31 Milena Devine, STEPHEN is Primary Nurse. sm5 06:31 Love Armenta FNP-C is PHCP. kb 06:31 Wilder Benton MD is Attending Physician. kb 06:38 Triage completed. tw5 06:42 Patient has correct armband on for positive identification. Bed in low position. Call sm5 light in reach. Side rails up X2. Pulse ox on. NIBP on. 06:43 Arm band placed on right wrist. sm5 06:43 No provider procedures requiring assistance completed. sm5 06:57 Inserted saline lock: 20 gauge in right antecubital area, using aseptic technique. 5 Blood collected. 06:59 CBC with Diff Sent. sm5 06:59 Basic Metabolic Panel Sent. 5 07:39 Orbits W/Cont In Process Unspecified. EDMS 09:06 Sanjuana Hansen MD is Referral Physician. kb 09:38 IV discontinued, intact, bleeding controlled, No redness/swelling at site. Pressure ag7 dressing applied. Administered Medications: 06:38 Drug: Tetracaine Drops 0.5 % 1 drops {Note: administered by CHERRIE Aleman.} Route: sm5 Ophthalmic; Site: right eye; 07:58 Drug: Zofran (Ondansetron) 4 mg {Note: PATIENT RECEIVED MEDICATION AFTER RETURNING FROM 7 CT.} Route: IVP; Site: right antecubital; 08:33 Follow up: Response: No adverse reaction; Marked relief of symptoms ag7 07:59 Drug: morphine 4 mg {Note: patient received the medication after returning from the CT, ag7 RASS 0.} Route: IVP; Site: right antecubital; 08:34 Follow up: Pain 0/10; Response: No adverse reaction; Marked relief of symptoms; Pain is ag7 decreased; RASS: Drowsy (-1) Outcome: 09:06 Discharge ordered by . kb 09:38 Discharged to home ag7 09:38 Condition: stable 09:38 Discharge instructions given to patient, significant other, Instructed on discharge instructions, follow up and referral plans. Demonstrated understanding of instructions, follow-up care. 09:40 Patient left the ED. 7 Signatures: Dispatcher [employer] EDMS Love Armenta, MENTAL HEALTH CASE MANAGER-C MENTAL HEALTH CASE MANAGER-Tracey Hardy Tiffany 5 Milena Devine RN RN 5 Linette Londono RN RN 7 Corrections: (The following items were deleted from the chart) 06:39 06:38 Tetracaine Drops 0.5 % 1 drops Ophthalmic in left eye 5 5 08:33 07:00 BP 106 / 76; Pulse 78bpm; Resp 20bpm; Pulse Ox 95%; Pain 0/10; ag7 ag7
[2021-07-28 10:18] VITALS: BP 110/76; O2SAT 97
== END 2021-07-28 09:40 | disposition home or self-care (01) ==
LOC: ER 06:22
DX: H10.89 Other conjunctivitis (principal); E11.9 Type 2 diabetes mellitus without complications; Z79.4 Long term (current) use of insulin; Z88.0 Allergy status to penicillin
CPT/HCPCS: 36415; 70481; 80048; 85025; 96374; 96375; 99284; J2405; Q9967

== ENCOUNTER 2021-11-15 18:40 | Emergency (ER) | payer OTHER, SELFPAY ==
--- OUTSIDE RECORDS SUMMARY | 2021-11-15 18:42 | XMS REPORT | Continuity of Care Document ---
:1985 Author Organization [facility] t Address [address] [place] [address] Care Team Providers Name Role Phone PCP, DOES NOT HAVE A Primary Care Physician Unavailable MANCILLA Attending Clinician Unavailable Mancilla GARNETT MECHANIC Attending Clinician MANCILLA Admitting Clinician Unavailable Problems Condition Condition Condition Status Onset Resolution Last Treating Co mments Source Name Details Category Date Date Treatment Clinician Date No known No known Disease Unive rs active active ity of problems problems [facility] Allergies, Adverse Reactions, Alerts Allergy Allergy Status Severity Reaction(s) Onset Inactive Treating Comm ents Source Name Type Date Date Clinician Penicill Propensi Active Dizziness 2017-05 Uni vers ins ty to 1-18 ity of adverse 00:00: [place] reaction 00 [facility] [place] PENICILL Drug Active Dizziness 2017-05 Unive rs INS Class 1-18 ity of 00:00: [place] 00 [facility] Branch Social History Social Habit Start Date Stop Date Quantity Comments Source Exposure to Not sure [facility] SARS-CoV-2 (event) Medica l Branch Sex Assigned At [birth year] [facility] 00:00:00 00:00:00 [facility] Smoking Status Start Date Stop Date Source Unknown if ever smoked [facility] Medications Ordered Filled Start Stop Current Ordering Indication Dosage Frequency Signature Comments Components Source Medication Medication Date Date Medication? Clinician (SIG) Name Name NaCl 0.9% 2021-0 2021- No 1000mL at 999 Uni vers (NS) bolus -03 04-03 mL/hr, ity of infusion 04:00: 04:12 1,000 mL, Jose as 1,000 mL 00 :00 IV Medical Infusion, Branch ONCE, 1 dose, On 08/20/21 at 2300, KAREN insulin No 8U 8 Units, Unive rs regular 08-21 Slow IV ity of human 03:00: 02:10 [place], [place] (HUMULIN R) 00 :00 ONCE, 1 Medic al injection 8 dose, On Bran ch Units 08/20/21 at 2200, STAT ondansetron 2021- No 8mg 8 mg, Slow Univers (ZOFRAN 08-21 IV Push, ity of (PF)) 01:45: 00:57 ONCE, 1 [place] injection 8 00 :00 dose, On Medi nelida mg 08/20/21 Branch at 204, KAREN NaCl 0.9% No 2000mL at 999 Uni vers (NS) bolus 08-21 mL/hr, ity of infusion 01:45: 02:35 2,000 mL, Jose as 2,000 mL 00 :00 IV Medical Infusion, Branch ONCE, 1 dose, On 08/20/21 at 2045, KAREN ondansetron Yes [id number] 4mg Take 1 Univers 4 mg 4-02 tablet by ity of disintegrat 00:00: mouth [place] ing tablet 00 every 8 Medica l (eight) Branch hours as needed for Nausea and Vomiting (N/V). dicyclomine Yes [id number] 20mg Take 1 Univers 20 mg 4-02 tablet by ity of tablet 00:00: mouth 4 [place] 00 (four) Medical times Branch daily as needed for Abdominal pain. acetaminoph 2017- Yes 1{tbl} Take 1 Un mookie en-codeine 1-19 tablet by ity of (TYLENOL-CO 00:00: mouth [place] DEINE #3) 00 every 6 Medical 300-30 mg (six) Branch tablet hours as needed for Pain (scale 4-6). Vital Signs Vital Name Observation Time Observation Value Comments Source Systolic blood 2021-08-21 04:00:00 110 mm[Hg] Univer sity of pressure [place] [facility] Diastolic blood 2021-08-21 04:00:00 65 mm[Hg] [facility] of pressure [facility] Heart rate 2021-08-21 04:00:00 111 /min [facility] Respiratory rate 2021-08-21 04:00:00 15 /min [facility] Oxygen saturation in 2021-08-21 04:00:00 98 /min [facility] Arterial blood by [facility] Pulse oximetry [place] Body temperature 2021-08-21 00:35:00 36.78 [facility] Body height 2021-08-21 00:35:00 170.2 cm [facility] Body weight 2021-08-21 00:35:00 108.863 kg [facility] BMI 2021-08-21 00:35:00 37.59 kg/m2 [facility] Procedures Procedure Date / Time Performing Clinician Source Performed EKG-12 LEAD 2021-08-21 04[facility]26[facility] 2021-08-21 04:14:[facility] URINALYSIS 2021-08-21 02:28:00 Charo [facility] [place] POCT TEST 2021-08-21 02:25:00 Stephie Mancilla [facility] XR CHEST 1 VW 2021-08-21 00:58:53 Charo [facility] [place] LIPASE 2021-08-21 00:55:[facility] 2021-08-21 00:55:[facility] COMP. METABOLIC PANEL 2021-08-21 00:55:00 Stephie Mancilla [facility] ([id number]) [facility] CBC WITH DIFF 2021-08-21 00:55:00 [facility] / INR 2021-08-21 00:55:00 Stephie [facility] N-TERMINAL PRO-BNP 2021-08-21 00:55:00 Stephie Mancilla [facility] AC PANEL 21 + LACTIC 2021-08-21 00:53:00 CharoStephietamiko [facility] [place] Encounters Start End Encounter Admission Attending Care Care Encounter Source Date/Time Date/Time Type Type Clinicians Facility Department ID 2021-08-20 2021-08-20 Emergency [facility] E[facility] [id number] Univers 19:39:00 23:34:00 STEPHIE ittamiko [facility] 2021-08-20 2021-08-20 Emergency [facility] [id number] Univers 19:39:00 23:34:00 Stephie WHIPPLE [id number] i ty [facility] [id number] [facility] [id number] [place] [id number] [place] Results Test Description Test Time Test Comments Results Result Comments Source POCT GLUCOSE (AUTOMATED) 2021-08-21 04:16:43 Test Item Value Reference Range Interpretation Comme nts POCT GLU (test code = 9108642905) 253 mg/dL 70-110 H Lab Interpretation (test code = 31432-8) [facility]normal [facility] [id number] 02:25:00 Test Item Value Reference Range Interpretation Comments POCT PREG (test code = 1605) Negative On board controls acceptable with Postive C Line (test code = 3574) POCT PREG LOT # (test code = 3575) [id number] POCT PREG TEST DATE (test 02-17-2023 code = 3576) Lab Interpretation (test code = Normal 84765-6) [facility] [id number] 01:38:34 Test Item Value Reference Interpretation Comments Range TROPONIN I (test 0.002 ng/mL See_Comment [Automated code = 7553517854) message] The system which generated this result transmitted reference range : <=0.034. The reference range was not used to interpret this result as normal/abnormal . KIERAN (test code = Reference (Normal) KIERAN) Range (defined by the 99th percentile reference limit): <= 0.034 ng/mL Note: Cardiac troponin begins to rise 3-4 hours after the onset of ischemia. Repeat in 4-6 hours if the sample was drawn within 3-4 hours of the onset of the symptom and found normal. Diagnosis of myocardial injury is made with acute changes in cTn concentrations with at least one serial sample above the 99th percentile upper reference limit (URL), taken together with the patient's clinical presentation. Biotin has been reported to cause a negative bias, interpret results relative to patient's use of biotin. Lab Interpretation Normal (test code = 70169-5) [facility] [id number] 01:35:14 Test Item Value Reference Range Interpretation Comments NT-proBNP (test code 25 pg/mL See_Comment [Autom ated = 5268915249) message] The system which generated this result transmitted reference range : <=125. The reference range was not used to interpret this result as normal/abnormal . KIERAN (test code = KIERAN) Biotin has been reported to cause a negative bias, interpret results relative to patient's use of biotin. Lab Interpretation Normal (test code = 29038-1) [facility] / [id number] 01:33:53 Test Item Value Reference Range Interpretation Comments PROTIME PATIENT (test See_Comment [Auto mated message] code = 5964-2) The system wh ich generated this result transmitted ref erence range: 12.0 - 1 4.7 Seconds. The re ference range was not u sed to interpret this result as normal/abnor mal. INR (test code = 6301-6) Nor mal INR <1.1; Warfarin Therap eutic range 2.0 to 3. 0 or 2.5 to 3.5, dep ending upon the indica tions. Lab Interpretation (test Normal code = 34102-5) [facility] WITH [id number] 01:28:33 Test Item Value Reference Range Interpretation Comments WBC (test code = See_Comment [Automated 8690-2) message] The sy stem which generated this result transmitted reference range : 4.30 - 11.10 10*3/?L. The reference range was not used to interpret this result as normal/abnormal . RBC (test code = See_Comment [Automated 983-8) message] The sy stem which generated this result transmitted reference range : 3.93 - 5.25 10*6/?L. The reference range was not used to interpret this result as normal/abnormal . HGB (test code = 15.6 g/dL 11.6-15.0 H 718-7) HCT (test code = 44.0 % 35.7-45.2 4544-3) MCV (test code = 85.3 fL 80.6-95.5 787-2) MCH (test code = 30.2 pg 25.9-32.8 785-6) MCHC (test code = 35.5 g/dL 31.6-35.1 H 786-4) RDW-SD (test code = 41.0 fL 39.0-49.9 97294-2) RDW-CV (test code = 13.3 % 12.0-15.5 788-0) PLT (test code = See_Comment [Automated 777-3) message] The sy stem which generated this result transmitted reference range : 166 - 358 10*3/ ?L. The reference r hilario was not used to interpret this result as normal/abnormal . MPV (test code = 10.3 fL 9.5-12.9 44560-9) NRBC/100 WBC (test See_Comment [Automat ed code = 5019656971) message] The system which generated this result transmitted reference range : 0.0 - 10.0 /100 WBCs. The refer ence range was not u sed to interpret th is result as normal/abnormal . NRBC x10^3 (test code <0.01 See_Comment [Auto mated = 5392697062) message] The s ystem which generated this result transmitted reference range : 10*3/?L. The reference range was not used to interpret this result as normal/abnormal . GRAN MAT (NEUT) % 86.0 % (test code = 770-8) IMM GRAN % (test code 0.40 % = 1068476660) LYMPH % (test code = 8.3 % 736-9) MONO % (test code = 4.5 % 5905-5) EOS % (test code = 0.5 % 713-8) BASO % (test code = 0.3 % 706-2) GRAN MAT x10^3(ANC) 6.81 10*3/uL 1.88-7.09 (test code = 4983076630) IMM GRAN x10^3 (test 0.03 10*3/uL 0.00-0.06 code = 7907523718) LYMPH x10^3 (test code 0.66 10*3/uL 1.32-3.29 L = 731-0) MONO x10^3 (test code 0.36 10*3/uL 0.33-0.92 = 742-7) EOS x10^3 (test code = 0.04 10*3/uL 0.03-0.39 711-2) BASO x10^3 (test code <0.03 0.01-0.07 = 704-7) Lab Interpretation Abnormal (test code = 86596-0) [facility]. METABOLIC PANEL ([id number])2021-08-21 01:26:37 Test Item Value Reference Range Interpretation Comments NA (test code = 134 mmol/L 135-145 L 0184312346) K (test code = 4.1 mmol/L 3.5-5.0 2826988907) CL (test code = 100 mmol/L 98-108 5700959618) CO2 TOTAL (test code = 22 mmol/L 23-31 L 7129848478) AGAP (test code = 2-16 4251998819) BUN (test code = 10 mg/dL 7-23 5191164236) GLUCOSE (test code = 315 mg/dL 70-110 H 8570024235) CREATININE (test code = 0.43 mg/dL 0.50-1.04 L 9316111577) TOTAL BILI (test code = 1.6 mg/dL 0.1-1.1 H 8497361109) CALCIUM (test code = 8.6 mg/dL 8.6-10.6 9982616798) T PROTEIN (test code = 7.0 g/dL 6.3-8.2 6188117947) ALBUMIN (test code = 4.2 g/dL 3.5-5.0 6208817931) ALK PHOS (test code = 113 U/L 34-122 2637369480) ALTv (test code = 25 U/L 5-35 1742-6) AST(SGOT) (test code = 24 U/L 13-40 9261661391) eGFR (test code = mL/min/1.73m2 7371854035) KIERAN (test code = KIERAN) Association of Glomerular Filtration Rate (GFR) and Staging of Kidney Disease* + --+ --+ ------+| GFR (mL/min/1.73 m2) ?| With Kidney Damage ?| ?Without Kidney Damage+ --------+ --------+ +| ?>90 ?| ?Stage one ?| ? Normal ?+ ---+ ---+ -------+| ?60-89 ?| ?Stage two ?| ? Decreased GFR ? + --+ --+ ------+| ?30-59 ?| ?Stage three ?| ? Stage three ? + --+ --+ ------+| ?15-29 ?| ?Stage four ? | ? Stage four ?+ ---+ ---+ -------+| ?<15 (or dialysis) ? ?| ?Stage five ? | ? Stage five ?+ ---+ ---+ -------+ *Each stage assumes the associated GFR level has been in effect for at least three months. ?Stages 1 to 5, with or without kidney disease, indicate chronic kidney disease. Notes: Determination of stages one and two (with eGFR >59mL/min/1.73 m2) requires estimation of kidney damage for at least three months as defined by structural or functional abnormalities of the kidney, manifested by either:Pathological abnormalities or Markers of kidney damage (including abnormalities in the composition of the blood or urine or abnormalities in imaging tests). Lab Interpretation Abnormal (test code = 31741-5) [facility] 01:26:17 Test Item Value Reference Range Interpretation Comments LIPASE (test code = 0632061451) 25 U/L 0-220 Lab Interpretation (test code = Normal 38813-3) [facility]"
[2021-11-15] MEDS ORDERED: ACETAMINOPHEN 500 MG TAB ONE (19:53)
[2021-11-15] MEDS ORDERED: NA CHLORIDE 0.9% 1,000 ML ONE (19:53)
[2021-11-15] MEDS ORDERED: ONDANSETRON 4 MG/2 ML VIAL ONE (19:53)
--- NOTE | 2021-11-15 21:11 | ER ---
Nurse's Notes [facility] Name: Jayne Rivera Age: 36 yrs Sex: Female : 1985 Arrival Date: 11/15/2021 Time: 18:44 Bed 14 Private MD: Diagnosis: SARS-associated coronavirus as the cause of diseases classified elsewhere Presentation: 11/15 19:06 Chief complaint: Patient states: my started yesterday with chills and headache kd3 and he started throwing up. I threw up once today. I started feeling bad today with a headache and I feel the same as him. we are having breathing issues and we just feel sick. I don't think we have had a fever. Coronavirus screen: Vaccine status: Patient reports being unvaccinated. Ebola Screen: No symptoms or risks identified at this time. Initial Sepsis Screen: Does the patient meet any 2 criteria? No. Patient's initial sepsis screen is negative. Does the patient have a suspected source of infection? No. Patient's initial sepsis screen is negative. Risk Assessment: Do you want to hurt yourself or someone else? Patient reports no desire to harm self or others. Onset of symptoms was November 15, 2021. 19:06 Method Of Arrival: Ambulatory kd3 19:06 Acuity: VIJAY 3 kd3 Triage Assessment: 19:09 Headache History: Denies prior headaches. General: Appears uncomfortable, Behavior is kd3 calm, cooperative. Neuro: Level of Consciousness is awake, alert, obeys commands, Oriented to person, place, time, situation. 19:15 Pain: Complains of pain in headache Pain currently is 5 out of 10 on a pain scale. Pain kd3 began gradually, Also complains of no other associated symptoms. 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 - Social history:: Smoking status: Patient denies any tobacco usage or history of. Screenin:16 Abuse screen: Denies threats or abuse. Denies injuries from another. Nutritional kd3 screening: No deficits noted. Tuberculosis screening: No symptoms or risk factors identified. Fall Risk None identified. Assessment: 22:27 Reassessment: Patient appears in no apparent distress at this time. Patient states ke1 feeling better. . Vital Signs: 19:15 Temp 101.2(O); kd3 19:15 Weight 108.86 kg; Height 5 ft. 6 in. (167.64 cm); kd3 19:38 BP 118 / 62; Pulse 92; Resp 18; Pulse Ox 98% on R/A; ke1 22:26 BP 111 / 63; Pulse 92; Resp 18; Temp 98.7; Pulse Ox 100% on R/A; ke1 19:15 Body Mass Index 38.74 (108.86 kg, 167.64 cm) kd3 ED Course: 18:44 Patient arrived in ED. rg4 19:06 Ada Dumont, STEPHEN is Primary Nurse. kd3 19:09 Triage completed. kd3 19:11 Phoenix Garcia MD is Attending Physician. kdr 19:15 Arm band placed on right wrist. kd3 19:16 Patient has correct armband on for positive identification. kd3 19:43 Inserted saline lock: 20 gauge in right antecubital area, using aseptic technique. ke1 19:58 Flu Sent. zm 21:00 Gil Riggins, STEPHEN is Primary Nurse. ke1 21:02 Droplet isolation initiated. ke1 21:44 No provider procedures requiring assistance completed. ke1 22:28 IV discontinued. ke1 Administered Medications: 20:01 Drug: NS 0.9% 1000 ml Route: IV; Rate: 1 bolus; Site: right antecubital; ke1 22:28 Follow up: IV Status: Completed infusion ke1 20:01 Drug: Zofran (Ondansetron) 4 mg Route: IVP; Site: right antecubital; ke1 20:30 Follow up: Response: Marked relief of symptoms ke1 20:01 Drug: Tylenol 1000 mg Route: PO; ke1 21:00 Follow up: Response: No adverse reaction ke1 21:42 Drug: Bebtelovimab 175 mg Route: IV; Rate: calculated rate; Site: right antecubital; ke1 21:45 Follow up: IV Status: Completed infusion ke1 22:27 Follow up: Response: No adverse reaction ke1 Medication: 21:44 VIS not applicable for this client. ke1 Outcome: 21:10 Discharge ordered by . kdr 22:27 Discharged to home ambulatory. ke1 22:27 Condition: good 22:27 Discharge instructions given to patient. 22:29 Patient left the ED. ke1 Signatures: Phoenix Garcia MD MD kdr Garcia, Rubi rg4 Ada Dumont RN RN kd3 Gil Riggins RN RN ke1 Lizette Mcallister Corrections: (The following items were deleted from the chart) 20:02 19:58 COVID 19 CPL+MR.LABNANNETTE drawn and sent. davey EDMS
--- NOTE | 2021-11-15 21:11 | EDPHYS ---
Physician Documentation [facility] Name: Jayne Rivera Age: 36 yrs Sex: Female : 1985 Arrival Date: 11/15/2021 Time: 18:44 Bed 14 Private MD: ED Physician Phoenix Garcia HPI: 11/16 03:50 This 36 yrs old Female presents to ER via Ambulatory with complaints of kdr Headache, Vomiting, Breathing Difficulty. 03:47 Patient's states that the patient became ill yesterday. She had chills and a kdr headache. She is also been throwing up. She threw up once today. He states that she was feeling bad today with a headache and that she feels the same as her when they both had issues with COVID.. Onset: The symptoms/episode began/occurred gradually. Severity of symptoms: At their worst the symptoms were mild in the emergency department the symptoms are unchanged. The patient has not experienced similar symptoms in the past. The patient has not recently seen a physician. 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 - Social history:: Smoking status: Patient denies any tobacco usage or history of. ROS: 11/16 03:47 Constitutional: Negative for fever, chills, and weight loss, Eyes: Negative for injury, kdr pain, redness, and discharge, ENT: Negative for injury, pain, and discharge, Neck: Negative for injury, pain, and swelling, Cardiovascular: Negative for chest pain, palpitations, and edema, Respiratory: Negative for shortness of breath, cough, wheezing, and pleuritic chest pain, Back: Negative for injury and pain, : Negative for injury, bleeding, discharge, and swelling, MS/Extremity: Negative for injury and deformity, Skin: Negative for injury, rash, and discoloration, Psych: Negative for depression, anxiety, suicide ideation, homicidal ideation, and hallucinations, Allergy/Immunology: Negative for hives, rash, and allergies, Endocrine: Negative for neck swelling, polydipsia, polyuria, polyphagia, and marked weight changes, Hematologic/Lymphatic: Negative for swollen nodes, abnormal bleeding, and unusual bruising. Abdomen/GI: Positive for abdominal pain, nausea and vomiting, Negative for constipation, abdominal cramps, abdominal distension. Exam: 03:47 Constitutional: This is a well developed, well nourished patient who is awake, alert, kdr and in no acute distress. Head/Face: Normocephalic, atraumatic. Eyes: Pupils equal round and reactive to light, extra-ocular motions intact. Lids and lashes normal. Conjunctiva and sclera are non-icteric and not injected. Cornea within normal limits. Periorbital areas with no swelling, redness, or edema. Neck: Trachea midline, no thyromegaly or masses palpated, and no cervical lymphadenopathy. Supple, full range of motion without nuchal rigidity, or vertebral point tenderness. No Meningismus. Chest/axilla: Normal chest wall appearance and motion. Nontender with no deformity. No lesions are appreciated. Cardiovascular: Regular rate and rhythm with a normal S1 and S2. No gallops, murmurs, or rubs. Normal PMI, no JVD. No pulse deficits. Respiratory: Lungs have equal breath sounds bilaterally, clear to auscultation and percussion. No rales, rhonchi or wheezes noted. No increased work of breathing, no retractions or nasal flaring. Abdomen/GI: Soft, non-tender, with normal bowel sounds. No distension or tympany. No guarding or rebound. No evidence of tenderness throughout. Back: No spinal tenderness. No costovertebral tenderness. Full range of motion. Skin: Warm, dry with normal turgor. Normal color with no rashes, no lesions, and no evidence of cellulitis. MS/ Extremity: Pulses equal, no cyanosis. Neurovascular intact. Full, normal range of motion. Vital Signs: 11/15 19:15 Temp 101.2(O); kd3 19:15 Weight 108.86 kg; Height 5 ft. 6 in. (167.64 cm); kd3 19:38 BP 118 / 62; Pulse 92; Resp 18; Pulse Ox 98% on R/A; ke1 22:26 BP 111 / 63; Pulse 92; Resp 18; Temp 98.7; Pulse Ox 100% on R/A; ke1 19:15 Body Mass Index 38.74 (108.86 kg, 167.64 cm) 3 MDM: 21:10 Patient medically screened. kdr 11/16 03:47 Data reviewed: vital signs, nurses notes, EMS record, diagnostic data from outside kdr facility. Counseling: I had a detailed discussion with the patient and/or guardian regarding: the historical points, exam findings, and any diagnostic results supporting the discharge/admit diagnosis, lab results, radiology results. 11/15 19:21 Order name: Flu kd3 11/15 20:02 Order name: SARS-COV-2 RT PCR EDMS Administered Medications: 11/15 20:01 Drug: NS 0.9% 1000 ml Route: IV; Rate: 1 bolus; Site: right antecubital; ke1 22:28 Follow up: IV Status: Completed infusion ke1 20:01 Drug: Zofran (Ondansetron) 4 mg Route: IVP; Site: right antecubital; ke1 20:30 Follow up: Response: Marked relief of symptoms ke1 20:01 Drug: Tylenol 1000 mg Route: PO; ke1 21:00 Follow up: Response: No adverse reaction ke1 21:42 Drug: Bebtelovimab 175 mg Route: IV; Rate: calculated rate; Site: right antecubital; ke1 21:45 Follow up: IV Status: Completed infusion ke1 22:27 Follow up: Response: No adverse reaction ke1 Disposition Summary: 11/15/21 21:10 Discharge Ordered Location: Home kdr Problem: new kdr Symptoms: have improved kdr Condition: Stable kdr Diagnosis - SARS-associated coronavirus as the cause of diseases classified elsewhere kdr Followup: kdr - With: Private Physician - When: 2 - 3 days - Reason: If symptoms return, Further diagnostic work-up, Recheck today's complaints, Continuance of care, Re-evaluation by your physician Discharge Instructions: - Discharge Summary Sheet kdr - COVID-19 kdr - Things to Know about the COVID-19 Pandemic - [facility] kdr - 10 Things You Can Do to Manage Your COVID-19 Symptoms at Home - [facility] kdr - Viral Illness, Adult kdr - COVID-19: Quarantine vs. Isolation - [facility] kdr - Prevent the Spread of COVID-19 if You Are Sick - [facility] kdr Forms: - Medication Reconciliation Form kdr - Thank You Letter kdr Prescriptions: - Ibuprofen 600 mg Oral Tablet - take 1 tablet by ORAL route every 6 hours As needed take with food; 30 tablet; kdr Refills: 0, Product Selection Permitted - Zofran 4 mg Oral Tablet - take 1 tablet by ORAL route every 4-6 hours As needed; 12 tablet; Refills: 0, kdr Product Selection Permitted Signatures: Dispatcher [employer] EDMS Phoenix Garcia MD MD kdr Doucette, Kyli RN RN kd3 Gil Riggins RN RN ke1 Corrections: (The following items were deleted from the chart) 20:02 19:22 COVID 19 CPL+[email or web address].BRZ ordered. EDTN EDTN
[2021-11-15] MEDS ORDERED: BEBTELOVIMAB 175 MG/2 ML VIAL IV ONE (21:43)
[2021-11-15 23:50] VITALS: BP 111/63; TEMP 98.7; O2SAT 100
== END 2021-11-15 22:29 | disposition home or self-care (01) ==
LOC: ER 18:40
DX: U07.1 COVID-19 (principal); E11.9 Type 2 diabetes mellitus without complications; Z79.4 Long term (current) use of insulin; Z88.0 Allergy status to penicillin
CPT/HCPCS: 87804; J2405; J7030; U0003

== ENCOUNTER 2022-03-30 21:21 | Emergency (ER) | payer SELFPAY ==
--- OUTSIDE RECORDS SUMMARY | 2022-03-30 21:23 | XMS REPORT | Continuity of Care Document ---
:1985 Author Organization [facility] t Address [address] [place] [address] Care Team Providers Name Role Phone PCP, PATIENT DOES NOT HAVE A Primary Care Physician Unavaila STEPHIE Leblanc Attending Clinician Unavailable Stephie Chappell Attending Clinician STEPHIE MANCILLA Admitting Clinician Unavailable Problems Condition Condition Condition Status Onset Resolution Last Treating Co mments Source Name Details Category Date Date Treatment Clinician Date No known No known Disease Unive rs active active ity of problems problems [facility] Allergies, Adverse Reactions, Alerts Allergy Allergy Status Severity Reaction(s) Onset Inactive Treating Comm ents Source Name Type Date Date Clinician PENICILL Drug Active Dizziness 2017-05 Unive rs INS Class 1-18 ity of 00:00: [place] 00 [facility] Branch Penicill Propensi Active Dizziness 2017-05 Uni vers ins ty to 1-18 ity of adverse 00:00: [place] reaction 00 Medical s Branch Social History Social Habit Start Date Stop Date Quantity Comments Source Exposure to Not sure [facility] SARS-CoV-2 (event) Medica l Branch Sex Assigned At [birth year] [facility] 00:00:00 00:00:00 Medical [place] Smoking Status Start Date Stop Date Source Unknown if ever smoked [facility] Medications Ordered Filled Start Stop Current Ordering Indication Dosage Frequency Signature Comments Components Source Medication Medication Date Date Medication? Clinician (SIG) Name Name NaCl 0.9% No 1000mL at 999 Uni vers (NS) bolus 08-21-03 mL/hr, ity of infusion 04:00: 04:12 1,000 mL, Jose as 1,000 mL 00 :00 IV Medical Infusion, Branch ONCE, 1 dose, On 08/20/21 at 2300, KAREN insulin 2021- No 8U 8 Units, Unive rs regular 08-21 Slow IV ity of human 03:00: 02:10 Push, [place] (HUMULIN R) 00 :00 ONCE, 1 Medic al injection 8 dose, On Bran ch Units 08/20/21 at 2200, STAT ondansetron 2021- No 8mg 8 mg, Slow Univers (ZOFRAN 08-21 IV Push, ity of (PF)) 01:45: 00:57 ONCE, 1 [place] injection 8 00 :00 dose, On Medi nelida mg 08/20/21 Branch at 2044, KAREN NaCl 0.9% 2021- No 2000mL at 999 Uni vers (NS) bolus 08-21-03 mL/hr, ity of infusion 01:45: 02:35 2,000 mL, Jose as 2,000 mL 00 :00 IV Medical Infusion, Branch ONCE, 1 dose, On 08/20/21 at 204, KAREN ondansetron 0 Yes [id number] 4mg Take 1 Univers 4 mg 4-02 tablet by ity of disintegrat 00:00: mouth [place] ing tablet 00 every 8 Medica l (eight) Branch hours as needed for Nausea and Vomiting (N/V). dicyclomine Yes [id number] 20mg Take 1 Univers 20 mg 4-02 [...] Source Systolic blood 2021-08-21 04:00:00 110 mm[Hg] Lindaer sity of pressure [facility] Diastolic blood 2021-08-21 04:00:00 65 mm[Hg[facility] [place] Heart rate 2021-08-21 04:00:00 111 /min [facility] Respiratory rate 2021-08-21 04:00:00 15 /min [facility] Oxygen saturation in 2021-08-21 04:00:00 98 /min [facility] Arterial blood by [facility] Pulse oximetry [place] Body temperature 2021-08-21 00:35:00 36.78 Ilana [facility] Body height 2021-08-21 00:35:00 170.2 cm [facility] Body weight 2021-08-21 00:35:00 108.863 kg [facility] BMI 2021-08-21 00:35:00 37.59 kg/m2 [facility] Procedures Procedure Date / Time Performing Clinician Source Performed EKG-12 LEAD 2021-08-21 04[facility]26[facility] 2021-08[facility]21 [facility]:14[facility] URINALYSIS 2021-08-21 02:28:00 [facility] 2021-08-21 02:25:00 Stephie Mancilla [facility] XR CHEST 1 VW 2021-08-21 00:58:53 [facility]-08[facility]21 [facility]:55[facility] 2021-08-21 00:55:00 [facility] COMP. METABOLIC PANEL 2021-08-21 00:55:[address] ([id number] CBC WITH DIFF 2021-08-21 00:55:00 Stephie Mancilla [facility] PROTHROMBIN TIME / INR 2021-08-21 00:55:00 Stephie Mancilla [facility] N-TERMINAL PRO-BNP 2021-08-21 00:55:00 Stephie Mancilla ty [facility] AC PANEL 21 + LACTIC 2021-08-21 00:53:00 Stephie Mancilla [facility] Encounters Start End Encounter Admission Attending Care Care Encounter Source Date/Time Date/Time Type Type Clinicians Facility Department ID 2022-02-28 2022-02-28 Outpatient SFA SFA [id number] Alin 13:32:27 13:32:27 1011 F Jesús 2021-08-20 2021-08-20 Emergency X [facility] ERT [id number] Univers 19:39:00 23:34:00 STEPHIE barba [facility] 2021-08-20 2021-08-20 Emergency [facility] [id number] Univers 19:39:00 23:34:00 Stephie WHIPPLE [id number] i [facility] [id number] [facility] [id number] [address] Results Test Description Test Time Test Comments Results Result Comments Source TSH, THIRD GENERATION 2022-03-01 06:52:55 Test Item Value Reference Range Interpretation Comme nts TSH, THIRD GENERATION (test code = 2821) 2.340 UIU/ML 0.400-4.100 COMPREHENSIVE METABOLIC [id number] 04:09:28 Test Item Value Reference Range Interpretation Comments GLUCOSE (test code = 376 MG/DL 70-99 H 2216) BUN (test code = 12 MG/DL 11-07) CREATININE (test 0.49 MG/DL 0.60-1.30 L code = 2214) eGFR (2020 CKD-EPI) 127 >60 (test code = 55980) ML/MIN/1.73 CALC BUN/CREAT (test 24 RATIO 11-15 code = 2235) SODIUM (test code = 140 MEQ/L 275-584 4432) POTASSIUM (test code 3.9 MEQ/L 3.5-5.4 = 8) CHLORIDE (test code 102 MEQ/L 95-107 = 2215) CARBON DIOXIDE (test 27 MEQ/L 19-31 code = 2206) CALCIUM (test code = 9.7 MG/DL 8.5-10.5 2208) PROTEIN, TOTAL (test 7.0 G/DL 6.1-8.3 code = 222) ALBUMIN (test code = 4.3 G/DL 3.5-5.2 2200) CALC GLOBULIN (test 2.7 G/DL 1.9-3.7 code = 224) CALC A/G RATIO (test 1.6 RATIO 1.0-2.6 code = 2234) BILIRUBIN, TOTAL 0.5 MG/DL See_Comment [Automated message] (test code = 2206) The syste m which generated this result transmit teresa reference range : <=1.2. The refe rence range was not u sed to interpret th is result as normal/abnormal . ALKALINE PHOSPHATASE 143 U/L 40-114 H (test code = 2203) AST (test code = 17 U/L 9-40 2217) ALT (test code = 25 U/L 5-40 2218) HEMOGLOBIN [id number] 03:15:18 Test Item Value Reference Range Interpretation Comments HEMOGLOBIN A1c (test 11.1 % 4.2-5.6 H AMERIC AN DIABETES code = 42366) ASSOCIATION IDELINES FOR HGB A1C: PREDIABETES/INC REASED RISK . . . . . . . 5 .7-6.4% DIAGNOSIS OF DI ABETES . . . . . . . . . >=6 .5% WITH CONFIRMATION OR APPROPRIATE SYMPTOMS NOTE: ASSAY MAY BE AFFECTED BY HEMOGLOBINOPATH IES (SICKLE CELL ANEMIA, S- C DISEASE, OTHERS) OR CARMEN FICIALLY LOWERED BY DECR EASED RED CELL SURVIVAL ( HEMOLYTIC ANEMIAS, BLOOD LOSS, ETC.). CONSIDER ALTERN ATE TESTING OR LABORATORY C ONSULTATION. UNLESS OTHERWIS E INDICATED, ALL TESTING PER FORMED ATCLINICAL PATH [facility] [place] [address] [place] [id number] LABORATORY DIRE CTOR: Moustapha PALACIOS. CLIA NUMBER [id number] CAP ACCREDITATION N O. [id number] CBC W/AUTO DIFF WITH [id number] 02:36:00 Test Item Value Reference Range Interpretation Comments WBC (test code = 7.9 K/UL 3.5-11.0 1001) RBC (test code = 5.04 M/UL 3.80-5.40 1002) HEMOGLOBIN (test code 15.3 G/DL 11.5-15.5 = 1003) HEMATOCRIT (test code 45.3 % 34.0-45.0 H = 1004) MCV (test code = 89.9 fL 80.0-99.0 1005) MCH (test code = 30.4 PG 25.0-33.0 1006) MCHC (test code = 33.8 G/DL 31.0-36.0 1007) RDW (test code = 13.1 % 11.5-15.0 1038) NEUTROPHILS (test 62.5 % code = 1008) LYMPHOCYTES (test 32.0 % code = 1010) MONOCYTES (test code 3.7 % = 1011) EOSINOPHILS (test 1.0 % code = 1012) BASOPHILS (test code 0.5 % = 1013) IMMATURE GRANULOCYTES 0.3 % (test code = 1036) NUCLEATED RBCS (test 0.0 /100 WBC'S See_Comment [Aut omated code = 1065) message] The sy stem which generated this result transmitted reference range : 0.0. The refere nce range was not u sed to interpret th is result as normal/abnormal . PLATELET COUNT (test 241 K/UL 130-400 code = 1015) ABSOLUTE NEUTROPHILS 4.95 K/UL 1.50-7.50 (test code = 1066) ABSOLUTE LYMPHOCYTES 2.53 K/UL 1.00-4.00 (test code = 1067) ABSOLUTE MONOCYTES 0.29 K/UL 0.20-1.00 (test code = 1068) ABSOLUTE EOSINOPHILS 0.08 K/UL 0.00-0.50 (test code = 1040) ABSOLUTE BASOPHILS 0.04 K/UL 0.00-0.20 (test code = 1069) ABS IMMATURE 0.02 K/UL 0.00-0.10 GRANULOCYTES (test code = 1020) ABS NUCLEATED RBCS 0.00 K/UL 0.00-0.11 (test code = 07236) POCT GLUCOSE (AUTOMATED)2021-08-21 04:16:43 Test Item Value Reference Range Interpretation Comments POCT GLU (test code = 2626013634) 253 mg/dL 70-110 H Lab Interpretation (test code = Abnormal 10644-9) [facility] [id number] 02:25:00 Test Item Value Reference Range Interpretation Comments POCT PREG (test code = 1605) Negative On board controls acceptable with Postive C Line (test code = 3574) POCT PREG LOT # (test code = 3575) [id number] POCT PREG TEST DATE (test 02-17-2023 code = 3576) Lab Interpretation (test code = Normal 20520-5) [facility] [id number] 01:38:34 Test Item Value Reference Interpretation Comments Range TROPONIN I (test 0.002 ng/mL See_Comment [Automated code = 4792265216) message] The system which generated this result [...] biotin. Lab Interpretation Normal (test code = 12406-2) [facility] [id number] 01:35:14 Test Item Value Reference Range Interpretation Comments NT-proBNP (test code 25 pg/mL See_Comment [Autom ated = 4132924690) message] The system which generated this result transmitted reference range : <=125. The reference range was not used to interpret this result as normal/abnormal . KIERAN (test code = KIERAN) Biotin has been reported to cause a negative bias, interpret results relative to patient's use of biotin. Lab Interpretation Normal (test code = 88842-4) [facility] / [id number] 01:33:53 Test Item Value Reference Range Interpretation [...] tions. Lab Interpretation (test Normal code = 66152-5) [facility] WITH [id number] 01:28:33 Test Item Value Reference Range Interpretation Comments WBC (test code = See_Comment [Automated 8790-2) message] The sy stem which generated this result transmitted reference range : 4.30 - 11.10 10*3/?L. The reference range was not used to interpret this result as normal/abnormal . RBC (test code = See_Comment [Automated 789-8) message] The sy stem which generated this [...] RDW-SD (test code = 41.0 fL 39.0-49.9 01837-4) RDW-CV (test code = 13.3 % 12.0-15.5 788-0) PLT (test code = See_Comment [Automated 777-3) message] The sy stem which generated this result transmitted reference range : 166 - 358 10*3/ ?L. The reference r hilario was not used to interpret this result as normal/abnormal . MPV (test code = 10.3 fL 9.5-12.9 61492-2) NRBC/100 WBC (test See_Comment [Automat ed code = 4026643907) message] The system which generated this result transmitted reference range : 0.0 - 10.0 /100 WBCs. The refer ence range was not u sed to interpret th is result as normal/abnormal . NRBC x10^3 (test code <0.01 See_Comment [Auto mated = 7639555455) message] The s ystem which generated this result transmitted reference range : 10*3/?L. The reference range was not used to interpret this result as normal/abnormal . GRAN MAT (NEUT) % 86.0 % (test code = 770-8) IMM GRAN % (test code 0.40 % = 4153115442) LYMPH % (test code = 8.3 % 736-9) MONO % (test code = 4.5 % 5905-5) EOS % (test code = 0.5 % 713-8) BASO % (test code = 0.3 % 706-2) GRAN MAT x10^3(ANC) 6.81 10*3/uL 1.88-7.09 (test code = 5689516433) IMM GRAN x10^3 (test 0.03 10*3/uL 0.00-0.06 code = 9009917477) LYMPH x10^3 (test code 0.66 10*3/uL 1.32-3.29 L = 731-0) MONO x10^3 (test code 0.36 10*3/uL 0.33-0.92 = 742-7) EOS x10^3 (test code = 0.04 10*3/uL 0.03-0.39 711-2) BASO x10^3 (test code <0.03 0.01-0.07 = 704-7) Lab Interpretation Abnormal (test code = 93821-8) [facility] (56598)2021-08-21 01:26:37 Test Item Value Reference Range Interpretation Comments NA (test code = 134 mmol/L 135-145 L 2774095761) K (test code = 4.1 mmol/L 3.5-5.0 4205814323) CL (test code = 100 mmol/L 98-108 5936688580) CO2 TOTAL (test code = 22 mmol/L 23-31 L 5195970801) AGAP (test code = 2-16 4006155563) BUN (test code = 10 mg/dL 7-23 5031481903) GLUCOSE (test code = 315 mg/dL 70-110 H 5966068646) CREATININE (test code = 0.43 mg/dL 0.50-1.04 L 6826338811) TOTAL BILI (test code = 1.6 mg/dL 0.1-1.1 H 5495621212) CALCIUM (test code = 8.6 mg/dL 8.6-10.6 2510118591) T PROTEIN (test code = 7.0 g/dL 6.3-8.2 4065696288) ALBUMIN (test code = 4.2 g/dL 3.5-5.0 0135421237) ALK PHOS (test code = 113 U/L 34-122 8325034660) ALTv (test code = 25 U/L 5-35 2-6) AST(SGOT) (test code = 24 U/L 13-40 8737436282) eGFR (test code = mL/min/1.73m2 0074475333) KIERAN (test code = KIERAN) Association of [...] tests). Lab Interpretation Abnormal (test code = 16744-1) [facility] 01:26:17 Test Item Value Reference Range Interpretation Comments LIPASE (test code = 2913448075) 25 U/L 0-220 Lab Interpretation (test code = Normal 92108-2) [facility]"
[2022-03-30] MEDS ORDERED: ONDANSETRON 4 MG/2 ML VIAL ONE (22:09)
[2022-03-30] MEDS ORDERED: NA CHLORIDE 0.9% 1,000 ML ONE (22:10)
[2022-03-30] MEDS ORDERED: KETOROLAC 30 MG/ML INJ ONE (22:10)
[2022-03-30 23:03] LABS: Absolute Lymphocytes (CBC) 0.5 K/uL (0.7-4.9); Hematocrit 40.8 % (36.0-45.0); MCV 86.9 fL (80-100); RBC Red Blood Cell Count 4.69 M/uL (3.86-4.86)
[2022-03-30 23:13] LABS: Potassium 3.9 mmol/L (3.5-5.1)
--- NOTE | 2022-03-30 23:54 | ER ---
Nurse's Notes [facility] Name: Jayne Rivera Age: 36 yrs Sex: Female : 1985 Arrival Date: 03/30/2022 Time: 21:25 Bed 14 Private MD: Diagnosis: Viral infection, unspecified Presentation: 03/30 21:45 Chief complaint: Patient states: Pt reports N/V/D x3 hrs with associated headache. kb3 Coronavirus screen: Vaccine status: Patient reports being unvaccinated. Client denies travel out of the [place] in the last 14 days. Ebola Screen: Patient negative for fever greater than or equal to 101.5 degrees Fahrenheit, and additional compatible Ebola Virus Disease symptoms. Initial Sepsis Screen: Does the patient meet any 2 criteria? No. Patient's initial sepsis screen is negative. Does the patient have a suspected source of infection? No. Patient's initial sepsis screen is negative. Risk Assessment: Do you want to hurt yourself or someone else? Patient reports no desire to harm self or others. Onset of symptoms was March 30, 2022 at 18:30. 21:45 Method Of Arrival: Ambulatory 3 21:45 Acuity: VIJAY 3 kb3 Triage Assessment: 21:46 General: Appears in no apparent distress. Behavior is calm, cooperative. Pain: kb3 Complains of pain in head Pain does not radiate. Pain currently is 7 out of 10 on a pain scale. GI: Reports diarrhea, nausea, vomiting. 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 Last tetanus immunization: up to date. - Social history:: Smoking status: Patient denies any tobacco usage or history of. Screenin:36 Abuse screen: Denies threats or abuse. Denies injuries from another. Nutritional aa9 screening: No deficits noted. Tuberculosis screening: No symptoms or risk factors identified. Fall Risk None identified. Assessment: 22:34 General: Appears comfortable, Behavior is cooperative, appropriate for age, quiet. aa9 Pain: Complains of pain in abdomen, head Pain currently is 5 out of 10 on a pain scale. Noted to be resistant to movement, Also complains of nausea. Neuro: Level of Consciousness is awake, alert, obeys commands, Oriented to person, place, time, situation. Cardiovascular: Patient's skin is warm and dry. Respiratory: Airway is patent Respiratory effort is even, unlabored. GI: Abdomen is obese. : No signs and/or symptoms were reported regarding the genitourinary system. EENT: No signs and/or symptoms were reported regarding the EENT system. Derm: Skin is intact, is healthy with good turgor. Musculoskeletal: No signs and/or symptoms reported regarding the musculoskeletal system. 23:30 Reassessment: Patient appears in no apparent distress at this time. Patient and/or aa9 family updated on plan of care and expected duration. Pain level reassessed. Patient is alert, oriented x 3, equal unlabored respirations, skin warm/dry/pink. Patient states symptoms have improved. Vital Signs: 21:45 BP 118 / 82; Pulse 95; Resp 20; Temp 98.8; Pulse Ox 100% ; Weight 102.06 kg; Height 5 kb3 ft. 7 in. (170.18 cm); Pain 7/10; 22:17 BP 108 / 69; Pulse 84; Resp 17 S; Pulse Ox 100% on R/A; aa9 23:39 BP 114 / 65; Pulse 85; Resp 17 S; Pulse Ox 99% on R/A; aa9 21:45 Body Mass Index 35.24 (102.06 kg, 170.18 cm) kb3 ED Course: 21:25 Patient arrived in ED. mr 21:46 Triage completed. kb3 21:46 Arm band placed on right wrist. kb3 21:50 Hemant Latif NP is PHCP. pm1 21:50 Jacob Benton MD is Attending Physician. pm1 22:07 Sharon Willett, STEPHEN is Primary Nurse. aa9 22:15 Inserted saline lock: 20 gauge in right antecubital area, using aseptic technique. aa9 Blood collected. 22:24 CBC with Diff Sent. aa9 22:24 Flu Sent. aa9 22:24 BMP Sent. aa9 22:36 Patient has correct armband on for positive identification. Bed in low position. Call aa9 light in reach. Side rails up X2. 23:58 No provider procedures requiring assistance completed. IV discontinued, intact, aa9 bleeding controlled, No redness/swelling at site. Pressure dressing applied. Administered Medications: 22:24 Drug: NS 0.9% 1000 ml Route: IV; Rate: 1 bolus; Site: right antecubital; aa9 03/31 00:02 Follow up: Response: No adverse reaction; IV Status: Completed infusion; IV Intake: aa9 1000ml 03/30 22:24 Drug: Zofran (Ondansetron) 4 mg Route: IVP; Site: right antecubital; aa9 03/31 00:01 Follow up: Response: No adverse reaction aa9 03/30 22:24 Drug: Ketorolac 30 mg Route: IVP; Site: right antecubital; aa9 03/31 00:01 Follow up: Response: No adverse reaction aa9 Medication: 03/30 22:36 VIS not applicable for this client. aa9 Intake: 03/31 00:02 IV: 1000ml; Total: 1000ml. aa9 Outcome: 03/30 23:54 Discharge ordered by MD. pm1 23:58 Discharged to home ambulatory. aa9 23:58 Condition: stable 23:58 Discharge instructions given to patient, Instructed on discharge instructions, follow up and referral plans. medication usage, Demonstrated understanding of instructions, follow-up care, medications, Prescriptions given X 2. 03/31 00:00 Patient left the ED. aa9 Signatures: Rosita CerratoHemant, MICROSTRATEGY REPORTS DEVELOPER MICROSTRATEGY REPORTS DEVELOPER pm1 Sharon Willett RN RN aa9 Calli Lee RN RN kb3 Corrections: (The following items were deleted from the chart) 03/30 21:47 21:46 PMHx: Diabetes - NIDDM; kb3 kb3
--- NOTE | 2022-03-30 23:55 | EDPHYS ---
Physician Documentation [facility] Name: Jayne Rivera Age: 36 yrs Sex: Female : 1985 Arrival Date: 03/30/2022 Time: 21:25 Bed 14 Private MD: ED Physician Jacob Benton HPI: 03/30 22:02 This 36 yrs old Female presents to ER via Ambulatory with complaints of pm1 Vomiting/Diarrhea, Breathing Difficulty, Dizziness. 22:02 The patient presents to the emergency department with nausea, vomiting, diarrhea. pm1 Onset: The symptoms/episode began/occurred today. 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 The symptoms are aggravated by nothing. The symptoms are alleviated by nothing. Associated signs and symptoms: Pertinent positives: diarrhea, nausea, vomiting, Headache, Pertinent negatives: abdominal pain. Severity of symptoms: in the emergency department the symptoms are unchanged. The patient has not experienced similar symptoms in the past. The patient has not recently seen a physician. 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 Last tetanus immunization: up to date. - Social history:: Smoking status: Patient denies any tobacco usage or history of. ROS: 22:02 Cardiovascular: Negative for chest pain, palpitations, and edema, Respiratory: Negative pm1 for shortness of breath, cough, wheezing, and pleuritic chest pain. 22:02 Back: Negative for injury and pain, : Negative for injury, bleeding, discharge, and swelling, MS/Extremity: Negative for injury and deformity, Skin: Negative for injury, rash, and discoloration. 22:02 Constitutional: Positive for body aches, fever. 22:02 Abdomen/GI: Positive for nausea, vomiting, and diarrhea, Negative for abdominal pain. 22:02 Neuro: Positive for headache. 22:02 All other systems are negative. Exam: 22:02 Constitutional: This is a well developed, well nourished patient who is awake, alert, pm1 and in no acute distress. Head/Face: Normocephalic, atraumatic. 22:02 Back: No spinal tenderness. No costovertebral tenderness. Full range of motion. Skin: Warm, dry with normal turgor. Normal color with no rashes, no lesions, and no evidence of cellulitis. MS/ Extremity: Pulses equal, no cyanosis. Neurovascular intact. Full, normal range of motion. 22:02 Eyes: Exam is negative for acute changes, Periorbital structures: no acute changes, Pupils: no acute changes, Extraocular movements: no acute changes, Conjunctiva: no acute changes, no injection. 22:02 ENT: Exam is negative for acute changes, Mouth: no acute changes, Lips: normal, moist, Oral mucosa: normal, pink and intact, moist. 22:02 Cardiovascular: Exam negative for acute changes, Rate: normal, Rhythm: regular, Pulses: no pulse deficits are appreciated. 22:02 Respiratory: Exam negative for acute changes, respiratory distress, shortness of breath. 22:02 Abdomen/GI: Inspection: obese Palpation: abdomen is soft and non-tender, in all quadrants. 22:02 Neuro: Exam negative for acute changes, Orientation: is normal, Mentation: is normal, Motor: is normal, moves all fours. Vital Signs: 21:45 BP 118 / 82; Pulse 95; Resp 20; Temp 98.8; Pulse Ox 100% ; Weight 102.06 kg; Height 5 kb3 ft. 7 in. (170.18 cm); Pain 7/10; 22:17 BP 108 / 69; Pulse 84; Resp 17 S; Pulse Ox 100% on R/A; aa9 23:39 BP 114 / 65; Pulse 85; Resp 17 S; Pulse Ox 99% on R/A; aa9 21:45 Body Mass Index 35.24 (102.06 kg, 170.18 cm) kb3 MDM: 21:56 Patient medically screened. pm1 23:47 Data reviewed: vital signs. Data interpreted: Pulse oximetry: on room air is 100 %. pm1 Interpretation: normal. Counseling: I had a detailed discussion with the patient and/or guardian regarding: the historical points, exam findings, and any diagnostic results supporting the discharge/admit diagnosis, lab results, the need for outpatient follow up, to return to the emergency department if symptoms worsen or persist or if there are any questions or concerns that arise at home. 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 Patient pm1 with symptoms that are flulike. My assumption is patient is positive for the flu but test result is false negative result. Will discharge patient home with Tamiflu and antinausea medicine. 03/30 22:02 Order name: CBC with Diff; Complete Time: 23:23 pm1 03/30 22:02 Order name: BMP; Complete Time: 23:23 pm1 03/30 22:02 Order name: Flu; Complete Time: 23:37 pm1 03/30 22:02 Order name: IV Saline Lock; Complete Time: 22:23 pm1 03/30 22:02 Order name: Labs collected and sent; Complete Time: 22:23 pm1 Administered Medications: 22:24 Drug: NS 0.9% 1000 ml Route: IV; Rate: 1 bolus; Site: right antecubital; aa9 03/31 00:02 Follow up: Response: No adverse reaction; IV Status: Completed infusion; IV Intake: aa9 1000ml 03/30 22:24 Drug: Zofran (Ondansetron) 4 mg Route: IVP; Site: right antecubital; aa9 03/31 00:01 Follow up: Response: No adverse reaction aa9 03/30 22:24 Drug: Ketorolac 30 mg Route: IVP; Site: right antecubital; aa9 03/31 00:01 Follow up: Response: No adverse reaction aa9 Disposition Summary: 03/30/22 23:54 Discharge Ordered Location: Home pm1 Problem: new pm1 Symptoms: have improved pm1 Condition: Stable pm1 Diagnosis - Viral infection, unspecified pm1 Followup: pm1 - With: Emergency Department - When: As needed - Reason: Worsening of condition Followup: pm1 - With: Private Physician - When: 2 - 3 days - Reason: Recheck today's complaints, Continuance of care, Re-evaluation by your physician Discharge Instructions: - Discharge Summary Sheet pm1 - Influenza, Adult pm1 - Viral Illness, Adult pm1 Forms: - Medication Reconciliation Form pm1 - Thank You Letter pm1 - Antibiotic Education pm1 - Prescription Opioid Use pm1 Prescriptions: - ondansetron 4 mg Oral tablet,disintegrating - place 1 tablet by TRANSLINGUAL route every 8 hours As needed; 12 tablet; pm1 Refills: 0, Product Selection Permitted - Tamiflu 75 mg Oral Capsule - take 1 tablet by ORAL route every 12 hours for 5 days; 10 tablet; Refills: 0, pm1 Product Selection Permitted Addendum: 04/06/2022 09:56 Co-signature as Attending Physician, Jacob Benton MD I agree with the assessment and c matthews plan of care. Signatures: Dispatcher [employer] EDJacob Mahoney MD MD cha Marinas, Patrick, RETAIL RESET MERCHANDISER RETAIL RESET MERCHANDISER pm1 Sharon iWllett, RN RN aa9 Calli Lee RN RN kb3 Corrections: (The following items were deleted from the chart) 03/30 21:47 21:46 PMHx: Diabetes - NIDDM; kb3 kb3
[2022-03-31 00:35] VITALS: TEMP 98.8; O2SAT 100
[2022-03-31 00:40] VITALS: BP 108/69
== END 2022-03-31 | disposition home or self-care (01) ==
LOC: ER 21:21
DX: B34.9 Viral infection, unspecified (principal)
CPT/HCPCS: 36415; 80048; 85025; 87804; 96361; 96374; 96375; 99284; J2405; J7030

== ENCOUNTER 2022-12-18 21:04 | Emergency (ER) | payer SELFPAY ==
--- OUTSIDE RECORDS SUMMARY | 2022-12-18 21:21 | XMS REPORT | Continuity of Care Document ---
:1985 Author Organization [facility] t Address [address] [place] [address]. [address] [place] [address] Care Team Providers Name Role Phone Pcp, Patient Does Not Have A Primary Care Physician [id number] Alida Henriquez LVN Attending Clinician Sven Barrios Attending Clinician Aimee Begum S Attending Clinician Lorraine Christianson MD Attending Clinician Celena Orosco MD Attending Clinician LORRAINE CHRISTIANSON Attending Clinician Unavailable Doctor Unassigned, [place] Attending Clinician Unavailable EARNEST BROWN Attending Clinician Unavailable Earnest Brown MD Attending Clinician Pob, [facility] Attending Clinician Unavailable STEPHIE MANCILLA Attending Clinician Unavailable Stephie Chappell Attending Clinician Celena Orosco MD Admitting Clinician CELENA OROSCO Admitting Clinician Unavailable STEPHIE MANCILLA Admitting Clinician Unavailable Payers Payer Name Policy Type Policy Number Effective Date Expiration Date S ource Problems Condition Condition Condition Status Onset Resolution Last Treating Co mments Source Name Details Category Date Date Treatment Clinician Date Abdominal Abdominal Disease Active Uni vers pain, pain, 5-07 [place] of generalize [place] Obesity Obesity Disease Active Univers (BMI (BMI 5-07 ity of 30-39.9) 30-39.9) 00:00: [place] 00 Medical Branch No known No known Disease Unive rs active active ity of problems problems [place] [facility] [place] Allergies, Adverse Reactions, Alerts Allergy Allergy Status Severity Reaction(s) Onset Inactive Treating Comm ents Source Name Type Date Date Clinician Penicill Propensi Active Dizziness 2017-05 Uni vers ins ty to 1-18 ity of adverse 00:00: [place] reaction 00 Medical s Branch PENICILL Drug Active Dizziness 2017-05 Unive rs INS Class 1-18 ity of 00:00: [place] 00 Medical Branch Penicill Propensi Active Dizziness 2017-05 Uni vers ins ty to 1-18 ity of adverse 00:00: [place] reaction 00 Medical s Branch Social History Social Habit Start Date Stop Date Quantity Comments Source Exposure to 2022-09-14 2022-09-24 Not sure [facility] SARS-CoV-2 (event) 00:00:00 14:00:00 Medica l Branch Sex Ass[birth year] At [birth year] [facility] y of [place] 00:00:00 00:00:00 Medical Branch Smoking Status Start Date Stop Date Source Tobacco smoking consumption [facility] unknown Branch Medications Ordered Filled Start Stop Current Ordering Indication Dosage Frequency Signature Comments Components Source Medication Medication Date Date Medication? Clinician (SIG) Name Name [facility] 2022- No 40meq 40 mEq, Univers (KLOR-CON 09-25- Oral, ity of M20) tablet 14:15: 15:25 ONCE, 1 [place] 40 mEq 00 :00 dose, On Medical Sun09/25/22 Branch at 0915, Routine enoxaparin Yes 40mg 40 mg, Unive rs (LOVENOX) 09-25 Subcutaneo ity of injection 14:00: [place], DAILY, [place] 40 mg 00 First dose Medical on Sun Branch 09/25/22 at 0900, Until Discontinu ed, Routine acetaminoph 2022- No 1000mg 1,000 mg, Univers en 09-25- Oral, ity of (TYLENOL) 03:00: 02:57 ONCE, 1 [place] tablet 00 :00 dose, On Medical 1,000 mg [place] 09/24/22 Branc h at 2200, KAREN NaCl 0.9% Yes 1000mL at 125 Univ ers (NS) IV 5-08 mL/hr, IV ity of infusion 02:00: Infusion, [place] 1,000 mL 00 CONTINUOUS Medic al , Starting Branch on [place] 09/24/22 at 2100, Until Discontinu ed, Routine ondansetron Yes 4mg 4 mg, Slow Univers (ZOFRAN 09-25 IV Push, ity of (PF)) 01:59: Q6HPRN, [place] injection 4 12 Starting Medi nelida mg on [facility] 09/24/22 at 2058, Until Discontinu ed, Routine, Nausea and Vomiting (N/V) morpHINE (4 2022- Yes 4mg 4 mg, Slow Univers mg/mL) 09-25 05-09 IV Push, ity of injection 4 01:59: 01:58 Q4HPRN, [place] mg 09 :09 Starting Medical on [facility] 09/24/22 at 2058, Until 09/25/22 at 2057, Routine, Pain (scale 7-10) traMADoL 2022- Yes 50mg 50 mg, Univer s (ULTRAM) 08 05-10 Oral, ity of tablet 50 01:59: 01:58 Q8HPRN, [place] mg 05 :05 Starting Medical on [facility] 09/24/22 at 2058, Until 09/26/22 at 2057, Routine, Pain (scale 4-6) acetaminoph Yes 650mg 650 mg, Un mookie en 5-08 Oral, ity of (TYLENOL) 01:59: Q6HPRN, [place] tablet 650 03 Starting Medic al mg on [facility] 09/24/22 at 2058, Until Discontinu ed, Routine, Pain (scale 1-3) NaCl 0.9% 2022- No 1000mL at 999 Uni vers (NS) bolus 5-08 05-08 mL/hr, ity of infusion 00:15: 01:56 1,000 mL, [place] as 1,000 mL 00 :00 IV Medical Infusion, Branch ONCE, 1 dose, On 09/24/22 at 1915, KAREN ibuprofen 2022- No 600mg 600 mg, Uni vers (IBU) 09-25 Oral, ity of tablet 600 00:00: 23:57 ONCE, 1 [place] as mg 00 :00 dose, On Medical 09/24/22 Branch at 1900, KAREN proMETHazin 2022- No 25mg 25 mg, IV Univers e 09-24 Piggyback, ity of (PHENERGAN) 21:15: 21:08 ONCE, 1 [place] 25 mg in 00 :00 dose, On Medical NaCl 0.9% 09/24/22 Bran ch (NS) 50 mL at 1615, IV KAREN piggyback insulin 2022- No 10U 10 Units, Univ ers regular 09-24 Slow IV ity of human 21:00: 21:15 Push, [place] (HUMULIN R) 00 :00 ONCE, 1 Medic al injection dose, On Branch 10 Units [place] 09/24/22 at 1600, STAT
In dication for insulin: Hyperglyce cricket iopamidol 2022- No [id number] 80mL 80 mL, Univers (ISOVUE 09-24 Intravenou ity o f 370-500 mL) 19:50: 20:15 s, ONCE, 1 [place] injection 00 :00 dose, On Medica l 80 mL 09/24/22 Branch at 1515, Routine NaCl 0.9% 2022- No 2000mL at 999 Uni vers (NS) bolus 09-24 mL/hr, ity of infusion 19:15: 23:58 2,000 mL, Jose as 2,000 mL 00 :00 IV Medical Infusion, Branch ONCE, 1 dose, On 09/24/22 at 1415, KAREN ondansetron 2022- No 4mg 4 mg, Slow Univers (ZOFRAN 09-24 IV Push, ity of (PF)) 18:30: 18:41 ONCE, 1 [place] injection 4 00 :00 dose, On Medi nelida mg 09/24/22 Branch at 1330, KAREN ondansetron 2023-0 Yes [id number] 4mg Take 1 Univers 4 mg 5-07 tablet by ity of disintegrat 00:00: mouth [place] ing tablet 00 every 12 Medic al (twelve) Branch hours as needed for Nausea and Vomiting (N/V). proMETHazin 2022-0 Yes [id number] 25mg Insert 1 Univers e 25 mg 5-07 Suppositor ity of suppository 00:00: y into [place] 00 rectum Medical every 6 Branch (six) hours as needed for Nausea and Vomiting (N/V) or N/V unresponsi ve to oral antiemetic s. dicyclomine 0 Yes [id number] 20mg Take 1 Univers 20 mg 5-07 tablet by ity of tablet 00:00: mouth 4 (four) Medical times Branch daily as needed for Abdominal pain. ondansetron 2022-0 Yes [id number] 4mg Take 1 Univers 4 mg 5-07 tablet by ity of disintegrat 00:00: mouth [place] ing tablet 00 every 12 Medic al (twelve) Branch hours as needed for Nausea and Vomiting (N/V). proMETHazin 0 Yes [id number] 25mg Insert 1 Univers e 25 mg 5-07 Suppositor ity of suppository 00:00: y into [place] 00 rectum Medical every 6 Branch (six) hours as needed for Nausea and Vomiting (N/V) or N/V unresponsi ve to oral antiemetic s. dicyclomine 0 Yes [id number] 20mg Take 1 Univers 20 mg 5-07 tablet by ity of tablet 00:00: mouth 4 [place] (four) Medical times Branch daily as needed for Abdominal pain. NaCl 0.9% 2021- No 1000mL at 999 Uni vers (NS) bolus 08-21 04-03 mL/hr, ity of infusion 04:00: 04:12 1,000 mL, [place] as 1,000 mL 00 :00 IV Medical Infusion, Branch ONCE, 1 dose, On 08/20/21 at 2300, KAREN insulin 2021- No 8U 8 Units, Unive rs regular - 04-03 Slow IV ity of human 03:00: 02:10 Push, [place] (HUMULIN R) 00 :00 ONCE, 1 Medic al injection 8 dose, On Bran ch Units 08/20/21 at 2200, STAT ondansetron 2021-0 2021- No 8mg 8 mg, Slow Univers (ZOFRAN 08-21 04-03 IV Push, ity of (PF)) 01:45: 00:57 ONCE, 1 [place] injection 8 00 :00 dose, On Medi nelida mg 08/20/21 Branch at 2045, KAREN NaCl 0.9% 2021- No 2000mL at 999 Uni vers (NS) bolus 08-21 04-03 mL/hr, ity of infusion 01:45: 02:35 2,000 mL, [place] as 2,000 mL 00 :00 IV Medical Infusion, Branch ONCE, 1 dose, On 08/20/21 at 2045, KAREN ondansetron 2021-0 Yes [id number] 4mg Take 1 Univers 4 mg 4-02 tablet by ity of disintegrat 00:00: mouth [place] ing tablet 00 every 8 Medica l (eight) Branch hours as needed for Nausea and Vomiting (N/V). dicyclomine 2021-0 Yes [id number] 20mg Take 1 Univers 20 mg 4-02 tablet by ity of tablet 00:00: mouth 4 [place] 00 (four) Medical times Branch daily as needed for Abdominal pain. ondansetron 2021-0 Yes [id number] 4mg Take 1 Univers 4 mg 4-02 tablet by ity of disintegrat 00:00: mouth [place] ing tablet 00 every 8 Medica l (eight) Branch hours as needed for Nausea and Vomiting (N/V). dicyclomine 2021-0 Yes [id number] 20mg Take 1 Univers 20 mg 4-02 tablet by ity of tablet 00:00: mouth 4 [place] 00 (four) Medical times Branch daily as needed for Abdominal pain. ondansetron 2022-0 Yes [id number] 4mg Take 1 Univers 4 mg 4-02 tablet by ity of disintegrat 00:00: mouth [place] ing tablet 00 every 8 Medica l (eight) Branch hours as needed for Nausea and Vomiting (N/V). dicyclomine 2022-0 Yes [id number] 20mg Take 1 Univers 20 mg 4-02 tablet by ity of tablet 00:00: mouth 4 [place] 00 (four) Medical times Branch daily as needed for Abdominal pain. ondansetron 2022-0 Yes [id number] 4mg Take 1 Univers 4 mg 4-02 tablet by ity of disintegrat 00:00: mouth [place] ing tablet 00 every 8 Medica l (eight) Branch hours as needed for Nausea and Vomiting (N/V). dicyclomine 2022-0 Yes [id number] 20mg Take 1 Univers 20 mg 4-02 tablet by ity of tablet 00:00: mouth 4 [place] 00 (four) Medical times Branch daily as needed for Abdominal pain. ondansetron 2-0 Yes [id number] 4mg Take 1 Univers 4 mg 4-02 tablet by ity of disintegrat 00:00: mouth [place] ing tablet 00 every 8 Medica l (eight) Branch hours as needed for Nausea and Vomiting (N/V). dicyclomine 2-0 Yes [id number] 20mg Take 1 Univers 20 mg 4-02 tablet by ity of tablet 00:00: mouth 4 [place] 00 (four) Medical times Branch daily as needed for Abdominal pain. ondansetron 2-0 Yes [id number] 4mg Take 1 Univers 4 mg 4-02 tablet by ity of disintegrat 00:00: mouth [place] ing tablet 00 every 8 Medica l (eight) Branch hours as needed for Nausea and Vomiting (N/V). dicyclomine 2-0 Yes [id number] 20mg Take 1 Univers 20 mg 4-02 tablet by ity of tablet 00:00: mouth 4 [place] 00 (four) Medical times Branch daily as needed for Abdominal pain. ondansetron 2-0 Yes [id number] 4mg Take 1 Univers 4 mg 4-02 tablet by ity of disintegrat 00:00: mouth [place] ing tablet 00 every 8 Medica l (eight) Branch hours as needed for Nausea and Vomiting (N/V). dicyclomine 2022-0 Yes [id number] 20mg Take 1 Univers 20 mg 4-02 tablet by ity of tablet 00:00: mouth 4 [place] 00 (four) Medical times Branch daily as needed for Abdominal pain. acetaminoph 2017-05 Yes 1{tbl} Take 1 Un mookie en-codeine 1-19 tablet by ity of (TYLENOL-CO 00:00: mouth [place] DEINE #3) 00 every 6 Medical 300-30 mg (six) Branch tablet hours as needed for Pain (scale 4-6). acetaminoph 2017-05 Yes 1{tbl} Take 1 Un mookie en-codeine 1-19 tablet by ity of (TYLENOL-CO 00:00: mouth [place] DEINE #3) 00 every 6 Medical 300-30 mg (six) Branch tablet hours as needed for Pain (scale 4-6). acetaminoph 2017-05 Yes 1{tbl} Take 1 Un mookie en-codeine 1-19 tablet by ity of (TYLENOL-CO 00:00: mouth [place] DEINE #3) 00 every 6 Medical 300-30 mg (six) Branch tablet hours as needed for Pain (scale 4-6). acetaminoph 2017-05 Yes 1{tbl} Take 1 Un mookie en-codeine 1-19 tablet by ity of (TYLENOL-CO 00:00: mouth [place] DEINE #3) 00 every 6 Medical 300-30 mg (six) Branch tablet hours as needed for Pain (scale 4-6). acetaminoph 2017-05 Yes 1{tbl} Take 1 Un mookie en-codeine 1-19 tablet by ity of (TYLENOL-CO 00:00: mouth [place] DEINE #3) 00 every 6 Medical 300-30 mg (six) Branch tablet hours as needed for Pain (scale 4-6). acetaminoph 2017-05 Yes 1{tbl} Take 1 Un mookie en-codeine 1-19 tablet by ity of (TYLENOL-CO 00:00: mouth [place] DEINE #3) 00 every 6 Medical 300-30 mg (six) Branch tablet hours as needed for Pain (scale 4-6). acetaminoph 2017-05 Yes 1{tbl} Take 1 Un mookie en-codeine 1-19 tablet by ity of (TYLENOL-CO 00:00: mouth [place] DEINE #3) 00 every 6 Medical 300-30 mg (six) Branch tablet hours as needed for Pain (scale 4-6). Vital Signs Vital Name Observation Time Observation Value Comments Source Systolic blood 2022-09-25 12:19:00 127 mm[Hg] Univer sity of pressure [facility] Diastolic blood 2022-09-25 12:19:00 83 mm[Hg] Unive [facility] Heart rate 2022-09-25 12:19:00 111 /min [facility] Body temperature 2022-09-25 12:19:00 36.67 Ilana [facility] Respiratory rate 2022-09-25 12:19:00 18 /min [facility] in 2022-09-25 12:19:00 96 /min University of Arterial blood by [facility] Pulse oximetry Branch Body height 2022-09-24 18:13:00 170.2 cm Universi ty [facility] Body weight 2022-09-24 18:13:00 102.059 kg Universi [facility] BMI 2022-09-24 18:13:00 35.24 kg/m2 [facility] Systolic blood 2021-08-21 04:00:00 110 mm[Hg] [facility] Diastolic blood 2021-08-21 04:00:00 65 mm[Hg] [facility] Heart rate 2021-08-21 04:00:00 111 /min [facility] Respiratory rate 2021-08-21 04:00:00 15 /min [facility] Oxygen saturation in 2021-08-21 04:00:00 98 /min University of Arterial blood by [facility] Pulse oximetry Branch Body temperature 2021-08-21 00:35:00 36.78 Ilana [facility] Body height 2021-08-21 00:35:00 170.2 cm [facility] Body weight 2021-08-21 00:35:00 108.863 kg [facility] BMI 2021-08-21 00:35:00 37.59 kg/m2 [facility] Procedures Procedure Date / Time Performing Clinician Source Performed MAGNESIUM 2022-09-25 09:21:00 Lorraine Christianson o f [facility] HEPATIC FUNCTION PANEL 2022-09-25 09:21:00 [facility] ([id number] (ALB,T.PRO,BILI Medical Branch T,BU/BC,ALT,AST,ALK PHOS) BASIC METABOLIC PANEL 2022-09-25 09:21:00 Celena Orosco [facility] (NA, K, CL, CO2, GLUCOSE, Medica l Branch BUN, CREATININE, CA) CBC WITH DIFF 2022-09-25 09:21:00 Dania [facility] CLOSTRIDIUM DIFFICILE 2022-09-25 09:21:00 Celena Orosco [facility] TOXIN [facility] POCT GLUCOSE (AUTOMATED) 2022-09-25 03:24:00 Lorraine [facility] RAPID INFLUENZA A/B 2022-09-25 01:57:00 Aimee Charles [facility] COVID-19 (ID NOW RAPID 2022-09-25 01:57:00 Aimee Charles [facility] TESTING) Medical Branch LAB ONLY COVID 2022-09-25 01:57:00 Aimee Charles [facility] INTERPRETATION [facility] POCT GLUCOSE (AUTOMATED) 2022-09-24 22:03:00 [facility] 2022-09-24 21:10:00 [facility]BDOM[facility] PELVIS W 2022-09-24 19:59:53 Sven Lee [facility] CONTRAST [facility] POCT TEST 2022-09-24 19:33:00 Sven Lee [facility] URINALYSIS 2022-09-24 19:32:00 Sven Lee [facility] ACUTE CARE VENOUS BLOOD 2022-09-24 18:30:00 Sven Lee [facility] GAS [facility] LIPASE 2022-09-24 18:29:00 Sven Lee [facility] COMP. METABOLIC PANEL 2022-09-24 18:29:00 Sven Lee [facility] ([id number]) [facility] CBC WITH DIFF 2022-09-24 18:29:00 Sven Lee [facility] CONSENT/REFUSAL FOR 2022-09-24 18:05:09 Doctor Unassigned, [facility] DIAGNOSIS AND TREATMENT [place] [facility] XR CHEST 2 VW 2022-07-25 18:16:00 Stephanie [facility] o f [facility] ASSIGNMENT OF BENEFITS 2022-07-25 17:40:07 [facility] [place] [facility] Branch EKG-12 LEAD 2021-08-21 04:26:03 Stephie Mancilla [facility] POCT GLUCOSE (AUTOMATED) 2021-08-21 04:14:00 Stpehie Mancilla Un [facility] URINALYSIS 2021-08-21 02:28:00 [facility] 2021-08-21 02:25:00 Stephie Mancilla [facility] XR CHEST 1 VW 2021-08-21 00:58:53 Stephie Mancilla [facility] LIPASE 2021-08-21 00:55:00 [facility] 2021-08-21 00:55:00 [facility] COMP. METABOLIC PANEL 2021-08-21 00:55:00 Stephie Mancilla [facility] ([id number]) [facility] CBC WITH DIFF 2021-08-21 00:55:00 Stephie Mancilla [facility] PROTHROMBIN TIME / INR 2021-08-21 00:55:00 Stephie Mancilla [facility] N-TERMINAL PRO-BNP 2021-08-21 00:55:00 Stephie Mancilla [facility] AC PANEL 21 + LACTIC ACID 2021-08-21 00:53:00 [facility] Encounters Start End Encounter Admission Attending Care Care Encounter Source Date/Time Date/Time Type Type Clinicians Facility Department ID 2022-09-26 2022-09-26 Transition TEJINDER Henriquez [id number] Univers 00:00:00 00:00:00 of Care Alida WILLS [id number] ity beto [place] 4[place]2.686 [place] [id number] [place] [address] Branch 2022-09-24 2022-09-25 [facility] Sven Lee [facility] 1.2.840. [id number] Univers 13:15:00 11:34:00 Encounter Melvin Aimee Kath WHIPPLE 350.1.13.10 ity of Lorraine ChristiansonANGELA 4.2.7.2.686 [facility] [id number] Medical 081 Branch 2022-09-24 2022-09-25 Inpatient X CLARISSE [facility] [id number] Univers 13:15:00 11:34:00 LORRIANE ity of [facility] 2022-09-24 2022-09-24 Orders Doctor JEREMIAH [id number] Univers 00:00:00 00:00:00 Only Unassigned, NUNO 350.1.13.10 ity of [place] [facility] 4.2.7.2.686 Jose as [id number] [facility] 009 Branch 2022-07-25 2022-07-25 Outpatient R STEPHANIE [facility] [id number] Univers 11:42:41 23:59:00 EARNEST ity of [facility] 2022-07-25 2022-07-25 [facility] [id number] Univers 11:42:41 23:59:00 Encounter Earnest WHIPPLE 350.1.13.10 ity of David KEITA 4.2.7.[address] [facility] [id number] [facility] 807 Branch 2022-07-25 2022-07-25 Extrusion Technician David, [facility] Main [facility] 1.2.8 40.114 [id number] Univers 12:00:00 12:15:00 Visit Earnest Brown 350.1.1 3.10 ity of [place] 4.2.7.2.686 [facility] PROFESSIO [id number] Ia dical [facility] 353 Branch [facility] 2022-07-25 2022-07-25 Orders Doctor DANIELS [id number] Univers 00:00:00 00:00:00 Only Unassigned, NUNO 350.1.13.10 ity of [place] [facility] 4.2.7.2.686 Jose as [id number] [facility] 009 Branch 2022-02-28 2022-02-28 Outpatient SFA SFA [id number] Alin 13:32:27 13:32:27 1011 F Jesús 2021-08-20 2021-08-20 Emergency X CHARO, [facility] ERT [id number] Univers 19:39:00 23:34:00 STEPHIE barba [facility] 2021-08-20 2021-08-20 Emergency Mancilla, [facility] 1.2.840.114 [id number] Univers 19:39:00 23:34:00 Stephie WHIPPLE 350.1.13.10 i ty of [place] 4.2.7.2.[address] [facility] [id number] [place] [id number] [place] Results Test Description Test Time Test Comments Results Result Comments Source POCT GLUCOSE (AUTOMATED) 2022-09-25 03:26:46 Test Item Value Reference Range Interpretation Comme nts POCT GLU (test code = 6499079538) 267 mg/dL 70-110 H Lab Interpretation (test code = 91300-7) Abnormal [facility] GLUCOSE (AUTOMATED)2022-09-24 22:05:00 Test Item Value Reference Range Interpretation Comments POCT GLU (test code = 1040946542) 349 mg/dL 70-110 H Lab Interpretation (test code = Abnormal 30508-5) [facility] GLUCOSE (AUTOMATED)2022-09-24 21:12:11 Test Item Value Reference Range Interpretation Comments POCT GLU (test code = 2593686767) 316 mg/dL 70-110 H Lab Interpretation (test code = Abnormal 45438-2) [facility] METABOLIC PANEL ([id number])2022-09-24 19:43:50 Test Item Value Reference Range Interpretation Comments NA (test code = 135 mmol/L 135-145 1382682000) K (test code = 4.2 mmol/L 3.5-5.0 4313636713) CL (test code = 102 mmol/L 98-108 6880993952) CO2 TOTAL (test code = 21 mmol/L 23-31 L 0487258471) AGAP (test code = 12 2-16 6622949971) BUN (test code = 11 mg/dL 7-23 9653723442) GLUCOSE (test code = 394 mg/dL 70-110 H 4139700528) CREATININE (test code = 0.46 mg/dL 0.50-1.04 L 0243455850) TOTAL BILI (test code = 1.8 mg/dL 0.1-1.1 H 2139555736) CALCIUM (test code = 8.8 mg/dL 8.6-10.6 7030252154) T PROTEIN (test code = 7.1 g/dL 6.3-8.2 9182230440) ALBUMIN (test code = 4.2 g/dL 3.5-5.0 6619995785) ALK PHOS (test code = 109 U/L 34-122 5869062601) ALTv (test code = 32 U/L 5-35 2-6) AST(SGOT) (test code = 24 U/L 13-40 0136924753) eGFR (test code = 154.6 mL/min/1.73m2 3733833765) KIERAN (test code = KIERAN) Association of [...] tests). Lab Interpretation Abnormal (test code = 35246-7) [facility] 19:43:29 Test Item Value Reference Range Interpretation Comments LIPASE (test code = 3195321259) 33 U/L 0-220 Lab Interpretation (test code = Normal 21245-2) [facility] [id number] 19:33:00 Test Item Value Reference Range Interpretation Comments POCT PREG (test code = 1605) Negative On board controls acceptable with Present C Line (test code = 3574) POCT PREG LOT # (test code = HCG [id number]) POCT PREG TEST DATE (test 06/20/2023 code = 3576) Lab Interpretation (test code = Normal 57812-4) [facility] [id number] 19:25:53 Test Item Value Reference Range Interpretation Comments WBC (test code = 8.11 See_Comment [Automated 1194-2) message] The sy stem which generated this result transmitted reference range : 4.30 - 11.10 10*3/?L. The reference range was not used to interpret this result as normal/abnormal . RBC (test code = 5.07 See_Comment [Automated 840-8) message] The sy stem which generated this result transmitted reference range : 3.93 - 5.25 10*6/?L. The reference range was not used to interpret this result as normal/abnormal . HGB (test code = 15.4 g/dL 11.6-15.0 H 718-7) HCT (test code = 42.7 % 35.7-45.2 4544-3) MCV (test code = 84.2 fL 80.6-95.5 787-2) MCH (test code = 30.4 pg 25.9-32.8 785-6) MCHC (test code = 36.1 g/dL 31.6-35.1 H 786-4) RDW-SD (test code = 39.3 fL 39.0-49.9 17969-9) RDW-CV (test code = 13.1 % 12.0-15.5 788-0) PLT (test code = 228 See_Comment [Automated 615-3) message] The sy stem which generated this result transmitted reference range : 166 - 358 10*3/ ?L. The reference r hilario was not used to interpret this result as normal/abnormal . MPV (test code = 10.7 fL 9.5-12.9 53346-8) NRBC/100 WBC (test 0.0 See_Comment [Automat ed code = 5985213358) message] The system which generated this result transmitted reference range : 0.0 - 10.0 /100 WBCs. The refer ence range was not u sed to interpret th is result as normal/abnormal . NRBC x10^3 (test code See_Comment [Auto mated = 6595641524) message] The s ystem which generated this result transmitted reference range : 10*3/?L. The reference range was not used to interpret this result as normal/abnormal . GRAN MAT (NEUT) % 88.7 % (test code = 770-8) IMM GRAN % (test code 0.20 % = 6316070837) LYMPH % (test code = 7.8 % 736-9) MONO % (test code = 3.1 % 5905-5) EOS % (test code = 0.1 % 713-8) BASO % (test code = 0.1 % 706-2) GRAN MAT x10^3(ANC) 7.19 10*3/uL 1.88-7.09 H (test code = 8098279811) IMM GRAN x10^3 (test 0.00-0.06 code = 0063795348) LYMPH x10^3 (test code 0.63 10*3/uL 1.32-3.29 L = 731-0) MONO x10^3 (test code 0.25 10*3/uL 0.33-0.92 L = 742-7) EOS x10^3 (test code = 0.03-0.39 L 711-2) BASO x10^3 (test code 0.01-0.07 = 704-7) Lab Interpretation Abnormal (test code = 50310-6) [facility], THIRD [id number] 06:52:55 Test Item Value Reference Range Interpretation Comments TSH, THIRD GENERATION (test code 2.340 UIU/ML 0.400-4.100 = 2821) COMPREHENSIVE METABOLIC [id number] 04:09:28 Test Item Value Reference Range Interpretation Comments GLUCOSE (test code = 376 MG/DL 70-99 H 2216) BUN (test code = 12 MG/DL 6-20 2207) CREATININE (test 0.49 MG/DL 0.60-1.30 L code = 221) eGFR (2020 CKD-EPI) 127 >60 (test code = 64462) ML/MIN/1.73 CALC BUN/CREAT (test 24 RATIO 6-28 code = 2235) SODIUM (test code = 140 MEQ/L 228-195 1394) POTASSIUM (test code 3.9 MEQ/L 3.5-5.4 = 2227) CHLORIDE (test code 102 MEQ/L 95-107 = 2214) CARBON DIOXIDE (test 27 MEQ/L 19-31 code = 220) CALCIUM (test code = 9.7 MG/DL 8.5-10.5 2208) PROTEIN, TOTAL (test 7.0 G/DL 6.1-8.3 code = 222) ALBUMIN (test code = 4.3 G/DL 3.5-5.2 2200) CALC GLOBULIN (test 2.7 G/DL 1.9-3.7 code = 2240) CALC A/G RATIO (test 1.6 RATIO 1.0-2.6 code = 2234) BILIRUBIN, TOTAL 0.5 MG/DL See_Comment [Automated message] (test code = 2207) The syste m which generated this result transmit teresa reference range : <=1.2. The refe rence range was not u sed to interpret th is result as normal/abnormal . ALKALINE PHOSPHATASE 143 U/L 40-114 H (test code = 2204) AST (test code = 17 U/L 9-40 2217) ALT (test code = 25 U/L 5-40 2218) HEMOGLOBIN [id number] 03:15:18 Test Item Value Reference Range Interpretation Comments HEMOGLOBIN A1c (test 11.1 % 4.2-5.6 H AMERIC AN DIABETES code = 17315) ASSOCIATION IDELINES FOR HGB A1C: PREDIABETES/INC REASED [...] UNLESS OTHERWIS E INDICATED, ALL TESTING PER [facility] FARGOLINICAL PATH [facility], [facility]. [address] [place] [address] LABORATORY DIRE CTOR: Moustapha PALACIOS. CLIA NUMBER [id number] CAP ACCREDITATION N O. [id number] CBC W/AUTO DIFF WITH [id number] 02:36:00 Test Item Value Reference Range Interpretation [...] RBCS 0.00 K/UL 0.00-0.11 (test code = 86832) POCT GLUCOSE (AUTOMATED)2021-08-21 04:16:43 Test Item Value Reference Range Interpretation Comments POCT GLU (test code = 6760750607) 253 mg/dL 70-110 H Lab Interpretation (test code = Abnormal 33378-1) [id number] 02:25:00 Test Item Value Reference Range Interpretation Comments POCT PREG (test code = 1605) Negative On board controls acceptable with Postive C Line (test code = 3574) POCT PREG LOT # (test code = 3575) [id number] POCT PREG TEST DATE (test 02-17-2023 code = 3576) Lab Interpretation (test code = Normal 25883-3) [facility] [id number] 01:38:34 Test Item Value Reference Interpretation Comments Range TROPONIN I (test 0.002 ng/mL See_Comment [Automated code = 0747618080) message] The system which generated this result [...] biotin. Lab Interpretation Normal (test code = 61858-5) [facility] [id number] 01:35:14 Test Item Value Reference Range Interpretation Comments NT-proBNP (test code 25 pg/mL See_Comment [Autom ated = 3203757997) message] The system which generated this result transmitted reference range : <=125. The reference range was not used to interpret this result as normal/abnormal . KIERAN (test code = KIERAN) Biotin has been reported to cause a negative bias, interpret results relative to patient's use of biotin. Lab Interpretation Normal (test code = 09080-3) [facility] / [id number] 01:33:53 Test Item Value Reference Range Interpretation [...] tions. Lab Interpretation (test Normal code = 48260-4) [facility] [id number] 01:28:33 Test Item Value Reference Range Interpretation Comments WBC (test code = See_Comment [Automated 1890-2) message] The sy stem which generated this result transmitted reference range : 4.30 - 11.10 10*3/?L. The reference range was not used to interpret this result as normal/abnormal . RBC (test code = See_Comment [Automated 249-8) message] The sy stem which generated this [...] RDW-SD (test code = 41.0 fL 39.0-49.9 19538-6) RDW-CV (test code = 13.3 % 12.0-15.5 788-0) PLT (test code = See_Comment [Automated 777-3) message] The sy stem which generated this result transmitted reference range : 166 - 358 10*3/ ?L. The reference r hilario was not used to interpret this result as normal/abnormal . MPV (test code = 10.3 fL 9.5-12.9 94925-6) NRBC/100 WBC (test See_Comment [Automat ed code = 7032495294) message] The system which generated this result transmitted reference range : 0.0 - 10.0 /100 WBCs. The refer ence range was not u sed to interpret th is result as normal/abnormal . NRBC x10^3 (test code <0.01 See_Comment [Auto mated = 3311493698) message] The s ystem which generated this result transmitted reference range : 10*3/?L. The reference range was not used to interpret this result as normal/abnormal . GRAN MAT (NEUT) % 86.0 % (test code = 770-8) IMM GRAN % (test code 0.40 % = 1029320235) LYMPH % (test code = 8.3 % 736-9) MONO % (test code = 4.5 % 5905-5) EOS % (test code = 0.5 % 713-8) BASO % (test code = 0.3 % 706-2) GRAN MAT x10^3(ANC) 6.81 10*3/uL 1.88-7.09 (test code = 3343687717) IMM GRAN x10^3 (test 0.03 10*3/uL 0.00-0.06 code = 8688506322) LYMPH x10^3 (test code 0.66 10*3/uL 1.32-3.29 L = 731-0) MONO x10^3 (test code 0.36 10*3/uL 0.33-0.92 = 742-7) EOS x10^3 (test code = 0.04 10*3/uL 0.03-0.39 711-2) BASO x10^3 (test code <0.03 0.01-0.07 = 704-7) Lab Interpretation Abnormal (test code = 32023-2) [facility]. METABOLIC PANEL ([id number])2021-08-21 01:26:37 Test Item Value Reference Range Interpretation Comments NA (test code = 134 mmol/L 135-145 L 8187579079) K (test code = 4.1 mmol/L 3.5-5.0 6388788991) CL (test code = 100 mmol/L 98-108 1583532184) CO2 TOTAL (test code = 22 mmol/L 23-31 L 6396782621) AGAP (test code = 2-16 2497935783) BUN (test code = 10 mg/dL 7-23 0923506642) GLUCOSE (test code = 315 mg/dL 70-110 H 6926037145) CREATININE (test code = 0.43 mg/dL 0.50-1.04 L 1514406971) TOTAL BILI (test code = 1.6 mg/dL 0.1-1.1 H 0730718969) CALCIUM (test code = 8.6 mg/dL 8.6-10.6 5106860912) T PROTEIN (test code = 7.0 g/dL 6.3-8.2 9319884094) ALBUMIN (test code = 4.2 g/dL 3.5-5.0 1602582555) ALK PHOS (test code = 113 U/L 34-122 0933682552) ALTv (test code = 25 U/L 5-35 1742-6) AST(SGOT) (test code = 24 U/L 13-40 6772758013) eGFR (test code = mL/min/1.73m2 8128030747) KIERAN (test code = KIERAN) Association of [...] tests). Lab Interpretation Abnormal (test code = 69351-7) [facility] 01:26:17 Test Item Value Reference Range Interpretation Comments LIPASE (test code = 4890784810) 25 U/L 0-220 Lab Interpretation (test code = Normal 03662-3) [facility]"
[2022-12-19 00:17] LABS: Absolute Lymphocytes (CBC) 0.8 K/uL (0.7-4.9); Hematocrit 42.7 % (36.0-45.0); Lymphocytes % 15.4 % (15.3-44.8); MCV 86.5 fL (80-100); RBC Red Blood Cell Count 4.94 M/uL (3.86-4.86)
[2022-12-19 00:21] LABS: SARS-CoV-2 Antigen Rapid Res Negative (Negative)
[2022-12-19 00:28] LABS: Specific Gravity > 1.030 (1.005-1.030); Urine Bacteria None Seen /HPF (<20); Urine Bilirubin NEGATIVE (Negative); Urine Blood Negative (Negative); Urine Clarity Clear (Clear); Urine Color Light-Yellow (Yellow); Urine Glucose 4+ (Over) (Negative); Urine Mucus Slight /HPF (None Seen); Urine Protein NEGATIVE (Negative); Urine RBC <5 /HPF (None Seen); Urine Urobilinogen Normal (Normal); Urine pH 5.5 (5.0-7.0)
[2022-12-19 00:30] LABS: ALT/SGPT 42 U/L (13-56); AST/SGOT 23 U/L (15-37); Albumin 3.4 g/dL (3.4-5.0); Alkaline Phosphatase 113 U/L (45-117); BUN Blood Urea Nitrogen 11 mg/dL (7-18); Bicarbonate 28 mEq/L (21-32); Bilirubin Direct 0.2 mg/dL (0-0.2); Bilirubin Indirect, Calculated 0.7 mg/dL (0.2-0.8); Bilirubin Total 0.9 mg/dL (0.2-1.0); Glomerular Filtration Rate 102 ml/min (=/>90); Glucose Level 390 mg/dL (74-106); Magnesium 1.8 mg/dL (1.6-2.4); Potassium 4.2 mEq/L (3.5-5.1); Protein, Total 7.3 g/dL (6.4-8.2); Sodium Level 132 mEq/L (136-145)
[2022-12-19 00:31] LABS: Specific Gravity > 1.030 (1.005-1.030)
[2022-12-19 00:34] LABS: Troponin High Sensitivity < 3.0 pg/mL (<58.9)
[2022-12-19] MEDS ORDERED: METOCLOPRAMIDE 10 MG/2mL INJ ONE (00:54)
[2022-12-19] MEDS ORDERED: ACETAMINOPHEN 500 MG TAB ONE (00:54)
[2022-12-19] MEDS ORDERED: MECLIZINE HCL 12.5 MG TAB ONE (00:55)
[2022-12-19] MEDS ORDERED: NA CHLORIDE 0.9% 1,000 ML ONE ×2 (01:23→03:12)
[2022-12-19] MEDS ORDERED: INSULIN -REGULAR HUMAN 50 UNIT/0.5 ML ML ONE ×2 (01:23→03:12)
[2022-12-19] MEDS ORDERED: MORPHINE 4 MG/ML SYR ONE (01:48)
[2022-12-19] MEDS ORDERED: KETOROLAC 30 MG/ML INJ ONE (01:48)
--- NOTE | 2022-12-19 03:26 | EDPHYS ---
Physician Documentation [facility] Name: Jayne Rivera Age: 37 yrs Sex: Female : 1985 Arrival Date: 12/18/2022 Time: 21:04 Bed 6 Private MD: ED Physician Emmanuel Miner HPI: 12/18 21:45 This 37 yrs old Female presents to ER via Wheelchair with complaints of cp Headache. 21:45 The patient complains of pain to the top of head, forehead, right mu-ism and left cp mu-ism. The patient describes the headache as aching. Onset: The symptoms/episode began/occurred 2 day(s) ago. Associated signs and symptoms: Pertinent positives: dizziness, nausea, body aches, shortness of breath, Pertinent negatives: fever, neck stiffness, rash, vomiting, chest pain, abdominal pain, sore throat, cough, diarrhea. 21:45 Headache History: The patient has had previous headaches and this one is less severe cp than previous episodes. Historical: - Allergies: 21:42 PENICILLINS; as6 - PMHx: 21:42 Asthma; IDDM; as6 - PSHx: 21:42 Tonsillectomy; as6 - Immunization history:: Client reports having NOT received the Covid vaccine. - Social history:: Smoking status: Patient denies any tobacco usage or history of. ROS: 21:50 Constitutional: Positive for body aches, Negative for fever, poor PO intake. cp 21:50 Eyes: Negative for injury, pain, redness, and discharge. cp 21:50 ENT: Negative for drainage from ear(s), ear pain, sore throat, difficulty swallowing, difficulty handling secretions. 21:50 Cardiovascular: Negative for chest pain, edema, palpitations. 21:50 Respiratory: Negative for cough, shortness of breath, wheezing. 21:50 Abdomen/GI: Negative for abdominal pain, vomiting, diarrhea, constipation. 21:50 Back: Negative for injury or acute deformity, decreased range of motion. 21:50 : Negative for urinary symptoms, pelvic pain, vaginal bleeding, vaginal discharge. 21:50 Skin: Negative for cellulitis, rash. 21:50 Neuro: Positive for headache, Negative for altered mental status, numbness, weakness. 21:50 All other systems are negative. Exam: 21:55 Constitutional: The patient appears in no acute distress, alert, awake, non-toxic, well cp developed, well nourished, overweight 21:55 Head/Face: Normocephalic, atraumatic. cp 21:55 Eyes: Periorbital structures: appear normal, Pupils: equal, round, and reactive to light and accomodation, Extraocular movements: intact throughout, Conjunctiva: normal, no exudate, no injection, Sclera: no appreciated abnormality, Lids and lashes: appear normal, bilaterally. 21:55 ENT: External ear(s): are unremarkable, Ear canal(s): are normal, clear, TM's: dullness, bilaterally, Nose: is normal, Mouth: Lips: moist, Oral mucosa: moist, Posterior pharynx: Airway: no evidence of obstruction, patent, Voice: is normal. 21:55 Neck: ROM/movement: is normal, is supple, no range of motions limitations, no meningismus, no nuchal rigidity. 21:55 Chest/axilla: Inspection: normal. 21:55 Cardiovascular: Rate: tachycardic, Rhythm: regular. 21:55 Respiratory: the patient does not display signs of respiratory distress, Respirations: normal, no use of accessory muscles, no retractions, labored breathing, is not present, Breath sounds: are clear throughout, no decreased breath sounds, no stridor, no wheezing. 21:55 Abdomen/GI: Inspection: abdomen appears normal, Bowel sounds: active, all quadrants, Palpation: abdomen is soft and non-tender, in all quadrants. 21:55 Back: CVA tenderness, is absent. 21:55 Skin: cellulitis, is not appreciated, no rash present. 21:55 Neuro: Orientation: to person, place \T\ time. Mentation: is normal, Cerebellar function: is grossly normal, Motor: moves all fours, strength is normal, Sensation: is normal, Gait: is steady. 12/19 00:05 ECG was reviewed by the Attending Physician. cp Vital Signs: 12/18 21:41 BP 125 / 75; Pulse 105; Resp 18 S; Temp 99.5(O); Pulse Ox 98% on R/A; Weight 98.43 kg as6 (R); Height 5 ft. 7 in. (R); Pain 3/10; 12/19 00:15 BP 130 / 78; Pulse 98; Resp 17 S; Pulse Ox 98% on R/A; lg3 01:54 BP 120 / 86; Pulse 87; Resp 19 S; Pulse Ox 99% on R/A; lg3 03:13 BP 122 / 79; Pulse 88; Resp 17 S; Pulse Ox 99% on R/A; lg3 12/18 21:41 Body Mass Index 33.99 (98.43 kg, 170.18 cm) as6 12/18 21:41 Pain Scale: Adult as6 Adams Coma Score: 03:49 Eye Response: spontaneous(4). Motor Response: obeys commands(6). Verbal Response: rv oriented(5). Total: 15. MDM: 12/18 21:43 Patient medically screened. 12/19 03:25 Data reviewed: vital signs, nurses notes. 03:25 Differential diagnosis: meningitis, meningoencephalitis, migraine, sinusitis, tension cp headache, UTI, sepsis, DKA. Consideration of Admission/Observation Escalation of care including admission/observation considered. I considered the following discharge prescriptions or medication management in the emergency department Medications were administered in the Emergency Department. See MAR. Independent interpretation of the following test(s) in the Emergency Department EKG: See my EKG interpretation above. Care significantly affected by the following chronic conditions: Diabetes. Counseling: I had a detailed discussion with the patient and/or guardian regarding: the historical points, exam findings, and any diagnostic results supporting the discharge/admit diagnosis, lab results, radiology results, the need for outpatient follow up, a family practitioner, to return to the emergency department if symptoms worsen or persist or if there are any questions or concerns that arise at home. Response to treatment: the patient's symptoms have markedly improved after treatment, and as a result, I will discharge patient. 12/18 22:50 Order name: Influenza Screen (a \T\ B); Complete Time: 01:08 12/18 22:51 Order name: Urine W/Microscopic (UAM); Complete Time: 01:08 12/19 01:08 Interpretation: Normal except: Urine SG > 1.030; UGLUC 4+ (Over); UKET TRACE. 12/18 22:51 Order name: PREGU; Complete Time: 01:08 cp 12/19 01:08 Interpretation: Abnormal: Urine SG > 1.030. 12/18 22:51 Order name: Basic Metabolic Panel; Complete Time: 01:08 cp 12/19 01:09 Interpretation: Normal except: NA 132; GLUC 390; CA 8.2. 12/18 22:51 Order name: CBC with Diff; Complete Time: 01:08 cp 12/19 01:09 Interpretation: Normal except: RBC 4.94; ANTONIO% 76.5. 12/18 22:51 Order name: D-Dimer; Complete Time: 01:08 cp 12/18 22:51 Order name: LFT's; Complete Time: 01:08 cp 12/19 01:09 Interpretation: Normal except: GLOB 3.9; A/G 0.9. 12/18 22:51 Order name: Magnesium; Complete Time: 01:08 cp 12/18 22:51 Order name: Troponin HS; Complete Time: 01:08 cp 12/18 23:52 Order name: SARS RAPID; Complete Time: 01:08 as6 12/19 02:58 Order name: Glucose, Ancillary Testing; Complete Time: 02:58 EDMS 12/19 02:58 Interpretation: Reviewed. 12/18 22:51 Order name: XRAY Chest (1 view) cp 12/19 00:14 Order name: CT Head Brain wo Cont cp 12/18 22:51 Order name: EKG; Complete Time: 22:51 12/18 22:51 Order name: Cardiac monitoring; Complete Time: 00:18 12/18 22:51 Order name: EKG - Nurse/Tech; Complete Time: 00:18 cp 12/18 22:51 Order name: IV Saline Lock; Complete Time: 00:18 12/18 22:51 Order name: Labs collected and sent; Complete Time: 00:18 12/18 22:51 Order name: O2 Per Protocol; Complete Time: 00:18 12/18 22:51 Order name: O2 Sat Monitoring; Complete Time: 00:18 cp 12/19 02:40 Order name: Accucheck Blood Glucose; Complete Time: 02:46 cp EC:05 Rate is 98 beats/min. Rhythm is regular. AK interval is normal. QRS interval is normal. cp QT interval is normal. T waves are Inverted in lead aVR. Interpreted by me. Reviewed by me. Administered Medications: 00:52 Drug: metoCLOPramide IVP 10 mg Route: IVP; Site: right antecubital; lg3 03:01 Follow up: Response: No adverse reaction lg3 00:52 Drug: Meclizine PO 25 mg Route: PO; lg3 03:01 Follow up: Response: No adverse reaction lg3 00:52 Drug: Acetaminophen PO 1000 mg Route: PO; lg3 03:01 Follow up: Response: No adverse reaction lg3 01:21 Drug: NS 0.9% IV 1000 ml Route: IV; Rate: 1 bolus; Site: right antecubital; lg3 01:22 Drug: Insulin Regular Human IVP 10 units {Co-Signature: lg3 (Ying Gregory RN).} Route: rv IVP; Site: right antecubital; 03:01 Follow up: Response: No adverse reaction; Marked relief of symptoms; Blood sugar is lg3 lowered 02:02 Drug: Ketorolac IVP 15 mg Route: IVP; Site: right antecubital; lg3 03:01 Follow up: Response: No adverse reaction; Marked relief of symptoms lg3 02:02 Drug: morphine IVP or IV 4 mg Route: IVP; Infused Over: 4 mins; Site: right antecubital;lg3 03:00 Follow up: Response: No adverse reaction; Marked relief of symptoms lg3 03:04 Drug: NS 0.9% IV 1000 ml Route: IV; Rate: 1 bolus; Site: right antecubital; rv 03:50 Follow up: IV Status: Completed infusion; IV Intake: 1000ml rv 03:05 Drug: Insulin Regular Human Sub-Q 10 units {Co-Signature: jb4 (Panfilo Soto RN).} rv {Note: bgl 295.} Route: Sub-Q; Site: abdomen; 03:50 Follow up: Response: No adverse reaction rv Disposition: 05:56 Co-signature as Attending Physician, Emmanuel Miner MD I agree with the assessment sp4 and plan of care. I reviewed the patient's care provided by the Advanced Practice Provider and agree with the diagnosis and treatment plan. Disposition Summary: 12/19/22 03:25 Discharge Ordered Location: Home cp Problem: new cp Symptoms: have improved cp Condition: Stable cp Diagnosis - Diabetes mellitus due to underlying condition with hyperglycemia cp - Headache cp - Dizziness and giddiness cp - Shortness of breath cp Followup: cp - With: Private Physician - When: 2 - 3 days - Reason: Recheck today's complaints Discharge Instructions: - Discharge Summary Sheet cp - Dizziness cp - General Headache Without Cause cp - Hyperglycemia cp - Shortness of Breath, Adult cp - Daily Diabetes Mellitus Record cp - Blood Glucose Monitoring, Adult cp - Diabetes Mellitus and Nutrition, Adult cp - Aspirin and Your Heart cp Forms: - Medication Reconciliation Form cp - Thank You Letter cp - Antibiotic Education cp - Prescription Opioid Use cp - Patient Portal Instructions cp Prescriptions: - Ibuprofen 800 mg Oral Tablet - take 1 tablet by ORAL route every 8 hours As needed take with food; 30 tablet; cp Refills: 0, Product Selection Permitted - Meclizine 25 mg Oral Tablet - take 1 tablet by ORAL route every 8 hours As needed; 30 tablet; Refills: 0, cp Product Selection Permitted - Zofran 4 mg Oral Tablet - take 1 tablet by ORAL route every 12 hours As needed; 20 tablet; Refills: 0, cp Product Selection Permitted Signatures: Dispatcher [employer] EDMS Jacob Arreaga PA PA cp Dwayne Cortés RN RN rv Ying Gregory RN RN lg3 Dilip Castillo RN RN as6 Emmanuel Miner MD MD sp4 Ying Gregory RN lg3 Panfilo Soto RN jb4 Corrections: (The following items were deleted from the chart) 00:07 12/18 22:50 SARS-COV-2 RT PCR+MOL.LAB.BRZ ordered. EDMS EDMS
--- NOTE | 2022-12-19 03:26 | ER ---
Nurse's Notes [facility] Name: Jayne Rivera Age: 37 yrs Sex: Female : 1985 Arrival Date: 12/18/2022 Time: 21:04 Bed 6 Private MD: Diagnosis: Diabetes mellitus due to underlying condition with hyperglycemia;Headache;Dizziness and giddiness;Shortness of breath Presentation: 12/18 21:41 Chief complaint: Patient states: shortness of breath, headache, dizziness, and body as6 aches x2 days. Coronavirus screen: At this time, the client does not indicate any symptoms associated with coronavirus-19. Ebola Screen: No symptoms or risks identified at this time. Initial Sepsis Screen: Does the patient meet any 2 criteria? No. Patient's initial sepsis screen is negative. Does the patient have a suspected source of infection? No. Patient's initial sepsis screen is negative. Risk Assessment: Do you want to hurt yourself or someone else? Patient reports no desire to harm self or others. Onset of symptoms was December 16, 2022. 21:41 Method Of Arrival: Wheelchair as6 21:41 Acuity: VIJAY 3 as6 Historical: - Allergies: 21:42 PENICILLINS; as6 - PMHx: 21:42 Asthma; IDDM; as6 - PSHx: 21:42 Tonsillectomy; as6 - Immunization history:: Client reports having NOT received the Covid vaccine. - Social history:: Smoking status: Patient denies any tobacco usage or history of. Screenin/01 00:15 [facility] ED Fall Risk Assessment (Adult) History of falling in the last 3 months, lg3 including since admission No falls in past 3 months (0 pts). Abuse screen: Denies threats or abuse. Denies injuries from another. Nutritional screening: No deficits noted. Tuberculosis screening: No symptoms or risk factors identified. Assessment: 00:15 General: Appears in no apparent distress. uncomfortable, Behavior is calm, cooperative. lg3 Pain: Complains of pain in head, generalized body aches. Neuro: No deficits noted. Clay Agitation-Sedation Scale (RASS): 0 - Alert and Calm Level of Consciousness is awake, alert, obeys commands, Oriented to person, place, time, situation. Cardiovascular: No deficits noted. Capillary refill < 3 seconds Clubbing of nail beds is absent JVD is absent Patient's skin is warm and dry. Rhythm is sinus rhythm. Respiratory: No deficits noted. Reports shortness of breath cough that is Airway is patent Respiratory effort is even, unlabored, Respiratory pattern is regular, symmetrical. GI: No deficits noted. No signs and/or symptoms were reported involving the gastrointestinal system. Abdomen is round non-distended, obese. : No deficits noted. No signs and/or symptoms were reported regarding the genitourinary system. EENT: No deficits noted. No signs and/or symptoms were reported regarding the EENT system. Derm: No deficits noted. No signs and/or symptoms reported regarding the dermatologic system. Skin is intact, is healthy with good turgor, Skin is dry, Skin is normal, Skin temperature is warm. Musculoskeletal: No deficits noted. Circulation, motion, and sensation intact. Range of motion: intact in all extremities. 01:30 Reassessment: Patient appears in no apparent distress at this time. No changes from lg3 previously documented assessment. Patient and/or family updated on plan of care and expected duration. Pain level reassessed. Patient is alert, oriented x 3, equal unlabored respirations, skin warm/dry/pink. Pain: Complains of pain in head. 03:12 Reassessment: Patient appears in no apparent distress at this time. No changes from lg3 previously documented assessment. Patient and/or family updated on plan of care and expected duration. Pain level reassessed. Patient is alert, oriented x 3, equal unlabored respirations, skin warm/dry/pink. Vital Signs: 12/18 21:41 BP 125 / 75; Pulse 105; Resp 18 S; Temp 99.5(O); Pulse Ox 98% on R/A; Weight 98.43 kg as6 (R); Height 5 ft. 7 in. (R); Pain 07/28; 12/19 00:15 BP 130 / 78; Pulse 98; Resp 17 S; Pulse Ox 98% on R/A; lg3 01:54 BP 120 / 86; Pulse 87; Resp 19 S; Pulse Ox 99% on R/A; lg3 03:13 BP 122 / 79; Pulse 88; Resp 17 S; Pulse Ox 99% on R/A; lg3 12/18 21:41 Body Mass Index 33.99 (98.43 kg, 170.18 cm) as6 07 21:41 Pain Scale: Adult as6 Louise Coma Score: 03:49 Eye Response: spontaneous(4). Motor Response: obeys commands(6). Verbal Response: rv oriented(5). Total: 15. ED Course: 12/18 21:06 Patient arrived in ED. jj6 21:12 Jacob Arreaga PA is PHCP. cp 21:12 Emmanuel Miner MD is Attending Physician. cp 21:42 Triage completed. as6 21:43 Arm band placed on. as6 23:31 Dwayne Cortés, STEPHEN is Primary Nurse. rv 23:52 XRAY Chest (1 view) In Process Unspecified. EDMS 08 00:15 Patient has correct armband on for positive identification. Placed in gown. Bed in low lg3 position. Call light in reach. Side rails up X 1. Client placed on continuous cardiac and pulse oximetry monitoring. NIBP monitoring applied. waterproofer on. Door closed. Noise minimized. Warm blanket given. Family accompanied patient. 00:15 Inserted saline lock: 20 gauge in right antecubital area, using aseptic technique. lg3 Blood collected. 00:18 SARS RAPID Sent. lg3 00:18 Basic Metabolic Panel Sent. lg3 00:18 CBC with Diff Sent. lg3 00:18 D-Dimer Sent. lg3 00:18 LFT's Sent. lg3 00:18 Magnesium Sent. lg3 00:18 Troponin HS Sent. lg3 00:18 PREGU Sent. lg3 00:18 Urine W/Microscopic (UAM) Sent. lg3 00:18 Influenza Screen (a \T\ B) Sent. lg3 00:55 CT Head Brain wo Cont In Process Unspecified. EDMS 03:50 No provider procedures requiring assistance completed. IV discontinued, intact, rv bleeding controlled, No redness/swelling at site. Pressure dressing applied. 03:51 Provided Education on: medication compliance. rv Administered Medications: 00:52 Drug: metoCLOPramide IVP 10 mg Route: IVP; Site: right antecubital; lg3 03:01 Follow up: Response: No adverse reaction lg3 00:52 Drug: Meclizine PO 25 mg Route: PO; lg3 03:01 Follow up: Response: No adverse reaction lg3 00:52 Drug: Acetaminophen PO 1000 mg Route: PO; lg3 03:01 Follow up: Response: No adverse reaction lg3 01:21 Drug: NS 0.9% IV 1000 ml Route: IV; Rate: 1 bolus; Site: right antecubital; lg3 01:22 Drug: Insulin Regular Human IVP 10 units {Co-Signature: lg3 (Ying Gregory RN).} Route: rv IVP; Site: right antecubital; 03:01 Follow up: Response: No adverse reaction; Marked relief of symptoms; Blood sugar is lg3 lowered 02:02 Drug: Ketorolac IVP 15 mg Route: IVP; Site: right antecubital; lg3 03:01 Follow up: Response: No adverse reaction; Marked relief of symptoms lg3 02:02 Drug: morphine IVP or IV 4 mg Route: IVP; Infused Over: 4 mins; Site: right antecubital;lg3 03:00 Follow up: Response: No adverse reaction; Marked relief of symptoms lg3 03:04 Drug: NS 0.9% IV 1000 ml Route: IV; Rate: 1 bolus; Site: right antecubital; rv 03:50 Follow up: IV Status: Completed infusion; IV Intake: 1000ml rv 03:05 Drug: Insulin Regular Human Sub-Q 10 units {Co-Signature: jb4 (Panfilo Soto RN).} rv {Note: bgl 295.} Route: Sub-Q; Site: abdomen; 03:50 Follow up: Response: No adverse reaction rv Medication: 03:50 VIS not applicable for this client. rv Intake: 03:50 IV: 1000ml; Total: 1000ml. rv Outcome: 03:25 Discharge ordered by MD. cp 03:50 Discharged to home ambulatory, with family. rv 03:50 Condition: improved 03:50 Discharge instructions given to patient, family, Instructed on discharge instructions, follow up and referral plans. medication usage, Demonstrated understanding of instructions, follow-up care, medications, Prescriptions given X 3. 03:51 Patient left the ED. rv Signatures: Dispatcher [employer] EDMS Jacob Arreaga PA PA cp Vicente, Ronaldo, RN RN rv Ying Gregory, STEPHEN RN lg3 Susy [email or web address] Dilip Castillo RN RN as6 Ying Gregory RN lg3 Panfilo Soto RN jb4 Corrections: (The following items were deleted from the chart) 03:13 01:54 BP 120 / 86; rv lg3
[2022-12-19 04:13] VITALS: TEMP 99.5
[2022-12-19 04:16] VITALS: O2SAT 99
[2022-12-19 04:18] VITALS: BP 122/79
--- NOTE | 2022-12-19 12:18 | RAD REPORT ---
EXAM DESCRIPTION: Chest Single View CLINICAL HISTORY: 37 years Female SOB COMPARISON: None TECHNIQUE: AP view of the chest was obtained. FINDINGS: Cardiac size is within normal limits. Central vessels are not increased. Mild elevation ri ght hemidiaphragm. No infiltrates or effusions seen. No consolidation. No pneumothorax. IMPRESSION: No active disease. Electronically signed by: Adela Rodriguez MD 12/19/2022 12:05 AM CDT Due to temporary technical issues with the PACS/Fluency reporting system, reports are being signed by the in house radiologists without review as a courtesy to insure prompt reporting. The interpreting radiologist is fully responsible for the content of the report.
--- NOTE | 2022-12-20 10:12 | RAD REPORT ---
When she look intact as there is a report attached intact as do the study. EXAM DESCRIPTION: but not an attached report.
--- NOTE | 2022-12-20 17:40 | EKG ---
Test Date: 2022-12-18 Test Time: 23:58:23 Dynamiter: LA MEASUREMENT RESULTS: Intervals: Rate: 98 ND: 146 QRSD: 82 QT: 336 QTc: 428 [place]: P: 39 ND: 146 QRS: 16 T: 30 INTERPRETIVE STATEMENTS: Sinus rhythm with premature atrial complexes Otherwise normal ECG Compared to ECG 08/20/2018 22:38:56 Atrial premature complex(es) now present Electronically Signed On 12-20-22 17:35:03 CDT by Eduard Pandya
== END 2022-12-19 03:51 | disposition home or self-care (01) ==
LOC: ER 21:04
DX: E11.65 Type 2 diabetes mellitus with hyperglycemia (principal); R42 Dizziness and giddiness; R06.02 Shortness of breath
CPT/HCPCS: 36415; 70450; 71045; 80048; 80076; 81001; 81025; 82947; 83735; 84484; 85025; 85379; 87804; 87811; 93005; J1815; J2765; J7030; J8597